=== PATIENT | female | born 1950 | race Caucasian/White ===

== ENCOUNTER 2023-04-14 16:32 | Inpatient (IN) | payer MEDICARE, OTHER, SELFPAY ==
[2023-04-14] VITALS (8 sets, daily range): BP systolic 99–125; BP diastolic 51–84; BMI 52.8; BMI 51.8
[2023-04-14 12:20] LABS: % Basophils 0.4 % (0-2); % Eosinophils 2.5 % (0-6); % Immature Granulocytes 0.4 % (0-0.5); % Lymphocytes 13.7 % (20.5-51.1); % Monocytes 9.6 % (1.7-9.3); % Neutrophils 73.4 % (42.2-75.2); Absolute Eosinophils 0.1 10^3/uL (0-0.7); Absolute Lymphocytes 0.7 10^3/uL (1.2-3.4); Absolute Monocytes 0.5 10^3/uL (0.1-0.6); Absolute Neutrophils 3.8 10^3/uL (1.4-6.5); Hematocrit 34.4 % (37.0-47.0); Hemoglobin 11.5 g/dL (12.0-16.0); Mean Corp Hgb Conc. 33.4 g/dL (33.0-37.0); Mean Corpuscular Hgb 32.1 pg (27.0-31.0); Mean Corpuscular Volume 96.1 fL (81.0-99.0); Mean Platelet Volume 11.5 fL (7.4-10.4); Nucleated Red Blood Cells % 0 %; Platelet Count 116 10^3/uL (130-400); Red Blood Cell Count 3.58 10^6/uL (4.20-5.40); Red Cell Dist. Width 13.5 % (11.5-14.5); White Blood Cell Count 5.1 10^3/uL (4.8-10.8)
[2023-04-14 12:27] LABS: ALT (SGPT) 20 U/L (0-35); AST (SGOT) 27 U/L (14-36); Alkaline Phosphatase 101 U/L (38-126); Blood Urea Nitrogen 45 mg/dl (7-17); Calcium 8.9 mg/dl (8.4-10.2); Carbon Dioxide 36 mmol/L (22-30); Chloride 97 mmol/L (98-107); Glucose 126 mg/dl (70-99); Potassium 4.2 mmol/L (3.5-5.1); Sodium 135 mmol/L (135-145); Total Bilirubin 0.8 mg/dl (0.2-1.3); Total Protein 6.8 g/dl (6.3-8.2); eGFR 37.03
[2023-04-14 12:38] LABS: Troponin I < 0.012 ng/ml
--- NOTE | 2023-04-14 14:49 | ED.GENMED ---
History of Present Illness
General
Chief Complaint: Swelling
Source: patient
Exam Limitations: none
Time Seen by Provider: 04/14/23 14:29
Travel History
Have you had any contact with someone who has COVID-19?: No
Do you have any symptoms of coronavirus? Fever > 100 degrees, chills, cough, shortness of breath, sore throat, loss of taste or smell, muscle aches, or headache?: No
History of Present Illness
History of Present Illness:
72-year-old female with history of CHF on torsemide Eliquis for A-fib presents with increased leg swelling 10 pound weight gain in a week and shortness of breath. Seen by her family doctor yesterday and after discussion between her family doctor
and coal weigher, patient tells me coal weigher office recommended she come here for IV diuresis. She denies chest pain. No fever. She has not missed any doses of her blood thinners. No other complaints at this time
Past History
Past History
ED Past Medical History: Arrthythmia (A fib), COPD, HTN, Hypercholesterolemia, IDDM, Other (LBBB), Other (Hepatitis) and Other (Hep C. Anxiety, Sleep apnea, morbid obesity, liver failure, renal failure, lung cancer, chronic back pain in pain
management)
ED Past Surgical History: Orthopedic (L total knee 04/08/2013. R popliteal artery stent 01/12/14) and Other (resection right lung,)
Social History
Tobacco: Former smoker
Alcohol: Occasional
Drug: None
Personal:
Living: with family
Employment: Not employed
Family History
Family History: Other (Noncontributory)
Phy Exam
Physical Exam
Physical Exam:
General: Well-appearing obese female no acute respiratory distress
HEENT: Normocephalic atraumatic neck is supple
Heart: Regular rate and rhythm no murmurs
Lungs: Clear to auscultation bilaterally no wheezing
Abdomen: Soft nontender nondistended no guarding or rebound normal bowel sounds
Extremities: Pitting edema noted bilateral lower extremities slight into the thigh as well. No cyanosis
Skin is warm with venous stasis changes noted to bilateral lower extremity
Scores
Heart Failure Risk
Heart Failure Risk Score: Not Applicable
Course
Orders/Labs/Results
Orders:
Orders
04/14/23 12:01
CBC/With Diff [Complete Blood Count/With Diff] Urgent
CMP [Comprehensive Metabolic Panel] Urgent
NT-proBNP Urgent
Comment: ADD ON
Troponin I Urgent
04/14/23 13:42
Add On- LAB Urgent
Tests Added?: Pro-BNP
04/14/23 14:43
CR Chest Portable - 1 View Urgent
Comment:
Reason For Exam: sob
Reason Study Needs to be Portable: Unable to Transport
04/14/23 15:05
EKG [Electrocardiogram (*1)] Routine
Reason for Study: Atrial Fibrillation
04/14/23 15:37
Furosemide [Lasix] 40 mg IV NOW STA
Abnormal Lab Results
04/14/23
12:01
RBC 3.58 L 10^6/uL
(4.20-5.40)
Hgb 11.5 L g/dL
(12.0-16.0)
Hct 34.4 L %
(37.0-47.0)
MCH 32.1 H pg
(27.0-31.0)
Plt Count 116 L 10^3/uL
(130-400)
MPV 11.5 H fL
(7.4-10.4)
Absolute Lymphs (auto) 0.7 L 10^3/uL
(1.2-3.4)
Lymphocytes % 13.7 L %
(20.5-51.1)
Monocytes % 9.6 H %
(1.7-9.3)
Chloride 97 L mmol/L
(98-107)
Carbon Dioxide 36 H mmol/L
(22-30)
BUN 45 H mg/dl
(7-17)
Creatinine 1.5 H mg/dL
(0.6-1.0)
Glucose 126 H mg/dl
(70-99)
04/14/23 12:01
04/14/23 12:01
Vital Signs
Initial and Last Documented VS:
Initial Vital Signs
Temp Pulse Resp BP Pulse Ox
98.2 F 66 16 106/84 98
04/14/23 11:42 04/14/23 11:42 04/14/23 11:42 04/14/23 11:42 04/14/23 11:42
Last Documented Vital Signs
Temp Pulse Resp BP Pulse Ox
98.3 F 62 23 112/58 100
04/14/23 14:15 04/14/23 15:30 04/14/23 15:30 04/14/23 15:24 04/14/23 15:30
MDM/Problems Addressed
Differential Diagnosis Includes:
Patient notes increased leg swelling, increased shortness of breath and orthopnea despite recent increase in torsemide. Saw family doctor yesterday. Family doctor recommended she come to the hospital most recent echocardiogram I saw noted an
ejection fraction of 55 to 60% however this was about 2 years ago. Chest x-ray pending BNP pending. For admission for IV diuretics.
*Critical Care Note
Total Time (30-74mins, 75-104mins- exclusive of procedures): Not Applicable
Update Note
Update Note:
Volume overload. Chest x-ray clear not hypoxic while sitting up at rest. Recent increase in torsemide at home on effective. Patient notes 10 pound weight gain in a week. Patient sent in from family doctor's office for IV diuresis. Lasix IV
ordered admitted
ED Attending Note
-
Portions of this chart may have been created with voice recognition software.� Occasional wrong word or��sound alike� substitutions may have occurred due to the inherent limitations of voice recognition software.
Discharge Plan
Departure
Patient Disposition: Admit
Date of Disposition: 04/14/23
Time of Disposition: 15:39
Admit to: Telemetry
Presentation/result/management discussed w/ accepting MD/DO: Hospitalist
Discharge Problem:
CHF (congestive heart failure)
Prescriptions:
No Action
gabapentin 600 mg Tablet
1,200 mg PO BID
torsemide 20 mg Tablet
40 mg PO DAILY
pantoprazole 40 mg Tablet,Delayed Release (Dr/Ec)
40 mg PO DAILY
diltiazem HCl 240 mg Tablet Extended Release 24 Hr
240 mg PO DAILY
rosuvastatin 5 mg Tablet
5 mg PO DAILY
venlafaxine 75 mg capsule,extended release 24hr
75 mg PO DAILY
metoprolol succinate 50 mg tablet extended release 24 hr
50 mg PO BID
cyanocobalamin (vitamin B-12) 1,000 mcg/mL Solution
1,000 mcg IM QMONTH
Rx Instructions:
Next dose- 11/30/2022
sennosides-docusate sodium 8.6-50 mg tablet
2 tab-cap PO HS Qty: 180 0RF
insulin degludec [Tresiba U-100 Insulin] 100 unit/mL Solution
24 unit SC DAILY Qty: 0 0RF
potassium chloride [Klor-Con M20] 20 mEq tablet,ER particles/crystals
20 meq PO DAILY
bisacodyl 5 mg tablet
5 mg PO HS
oxycodone 10 mg tablet
10 mg PO Q6H
oxybutynin chloride 10 mg Tablet Extended Release 24hr
10 mg PO DAILY
spironolactone 25 mg Tablet
12.5 mg PO DAILY
Referrals:
Joanie Jane PA [Family Provider] -
Interventions
Interventions:
*Risk Screen - Suicide Last Done: 04/14/23 14:15
*General Assessment Last Done: 04/14/23 14:15
*Neglect/Abuse Screening Last Done: 04/14/23 14:15
ED- Fall Risk Assessment Last Done: 04/14/23 14:15
*ED COVID-19 Vaccine History Last Done: 04/14/23 14:15
ED- Cardiac Assessment Last Done: 04/14/23 14:15
ED- Pulmonary Assessment Last Done: 04/14/23 14:15
ED-Skin Assessment Last Done: 04/14/23 14:15
--- NOTE | 2023-04-14 15:09 | CON.CAR ---
Addendum entered and electronically signed by Holden Lindo MD 04/14/23 16:21:
I saw and examined the patient.
The WRAPPER HANDS SPRAYER or PA's note was reviewed and I agree with the note.
Comment: General: Well developed, well nourished in NAD.
Neck: Supple, no JVD, HJR, carotids +2 B/L, no bruits bilaterally.
Heart: Non displaced PMI, irregular, no murmurs, No S3, S4, no rubs.
Lungs: Scattered rhonchi
Extremities: Severe lower extremity edema
Neuro: Grossly nonfocal, awake, alert and oriented x3.
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 She has had multiple
admissions in the past for heart failure. She presents for evaluation of worsening shortness of breath and weight gain and elevated proBNP of 3200. She is admitted with acute diastolic CHF. She says she has gained 10 pounds recently.
Treatment IV Lasix and metolazone. She has responded well to metolazone in the past.
Original Note:
Consultation
Consultation Request
Date/Time Consultation Requested: 04/14/2023 at 1500
Date/Time Consultation Performed: 04/14/2023 at 1515
Requesting Provider: Ede Cobb PA-C
Performing Provider: Dr. Lindo
Reason for Consultation: CHF
Medical History
-
History of Present Illness:
HPI: Abbi is a 72-year-old female with past medical history of chronic HFpEF, cirrhosis, persistent atrial fibrillation, CKD, CAD, LBBB, PAD, hypertension, hyperlipidemia, JAYSON, DM 2, and COPD who presents to ER for evaluation of worsening
shortness of breath and weight gain. She reports over the past few weeks she has noticed increased shortness of breath that has been progressively worsening. She has also had over 10 pound weight gain in the last week. She notes her legs have
become more edematous and she feels swelling into her thighs. She was seen by her PCP yesterday who was concerned for acute heart failure exacerbation and sent her for stat labs. Lab work returned concerning for possible heart failure and she was
called this morning and instructed to come to ER for admission. Lab work revealed elevated proBNP at 3200. Chest x-ray is pending in the ER. Plan is for admission for IV diuresis given acute heart failure exacerbation. Cardiology consulted.
Patient reports shortness of breath while at rest in stretcher. Denies any chest pain.
PMH:
Chronic HFpEF
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
Persistent atrial fibrillation
Chronic Eliquis OAC
CKD 3b
H/o encephalopathy 2012
History of carcinoid
Chronic lymphedema
Mild CAD by cath 1999
LBBB
PAD s/p popliteal stent
HTN
HLD
s/p left upper lobectomy for lung cancer
JAYSON
DM2 w/ peripheral neuropathy
COPD
Obesity h/o gastric bypass 2018
Total right knee replacement December 2013 complicated by arterial injury requiring popliteal stent
Laminectomy 2014
Left hydronephrosis, chronic
Past Medical History
Past Medical History: Other (In HPI)
Past Surgical History: Other (Tubal ligation, carpal tunnel release, R TKA, lobectomy, lumbar laminectomy, R popliteal stent, gastric sleeve, left TKA, cataract removal)
Social History
Tobacco: Former Smoker
Alcohol: Occasional
Drug: None
Living: Other (Independent senior care apartment)
Family History
Family History: CAD, Cancer, Diabetes and Hypertension
Allergies / Home Medications
Allergy/AdvReac Type Severity Reaction Status Date / Time
heparin Allergy Rash Verified 04/14/23 11:42
Penicillins Allergy Hives Verified 04/14/23 11:42
(tolerated
cephalosporins
Apr 2016)
pregabalin [From Lyrica] Allergy Hives Verified 04/14/23 11:42
Medication Instructions Recorded Confirmed Type
diltiazem HCl 240 mg 240 mg PO DAILY Blood pressure 02/22/22 01/09/23 History
tablet,extended release 24 hr
gabapentin 600 mg tablet 1,200 mg PO BID Neurological 02/22/22 01/09/23 History
Condition
pantoprazole 40 mg tablet,delayed 40 mg PO DAILY Gastrointestinal 02/22/22 01/09/23 History
release issue
rosuvastatin 5 mg tablet 5 mg PO DAILY High cholesterol 02/22/22 01/09/23 History
torsemide 20 mg tablet 40 mg PO DAILY Fluid 02/22/22 01/09/23 History
retention/Swelling
cyanocobalamin (vitamin B-12) 1,000 mcg IM QMONTH Supplement 03/27/22 01/09/23 History
1,000 mcg/mL injection solution
metoprolol succinate 50 mg 50 mg PO BID Blood pressure 03/27/22 01/09/23 History
tablet,extended release 24 hr
venlafaxine 75 mg capsule,extended 75 mg PO DAILY Depression 03/27/22 01/09/23 History
release 24 hr
sennosides 8.6 mg-docusate sodium 2 tab-cap PO HS #180 tab-caps 04/07/22 01/09/23 Rx
50 mg tablet
insulin degludec 100 unit/mL 24 unit (0.24 mL) SC DAILY 06/23/22 01/09/23 Rx
subcutaneous solution (Tresiba Diabetes #0 mL
U-100 Insulin)
alpha lipoic acid 50 mg tablet 50 mg PO DAILY 11/29/22 01/09/23 History
bisacodyl 5 mg tablet 5 mg PO HS 11/29/22 01/09/23 History
oxybutynin chloride 10 mg 10 mg PO DAILY 11/29/22 01/09/23 History
tablet,extended release 24 hr
oxycodone 10 mg tablet 10 mg PO Q6H Left shoulder pain 11/29/22 01/09/23 History
potassium chloride 20 mEq 20 meq PO DAILY Electrolyte 11/29/22 01/09/23 History
tablet,extended Repletion
release(part/cryst) ([facility] Blood)
spironolactone 25 mg tablet 12.5 mg PO DAILY 01/02/23 01/09/23 History
Keflex 500 mg PO BID 01/09/23 01/09/23 History
Review of Systems
-
History Source: Patient
All other systems: Negative unless noted
Physical Exam
Vital Signs
Temp Pulse Resp BP Pulse Ox
98.3 F 63 18 110/58 96
04/14/23 14:15 04/14/23 14:15 04/14/23 14:15 04/14/23 14:15 04/14/23 14:15
Lab Results
04/14/23 12:01
04/14/23 12:01
Troponin I < 0.012 ng/ml 04/14/23 12:01
Physical Exam
General: Well Developed, Well Nourished and No Apparent Distress
HEENT: Normocephalic, Anicteric and Moist Mucous Membranes
Respiratory: Crackles and Non Labored Respirations
Cardiac: S1/S2 and Irregular Rhythm
Musculoskeletal: No Clubbing, No Cyanosis and Edema
Skin: Warm and Dry
Neuro: AO x 3 and Nonfocal/Grossly Intact
Psych: Calm
Impression / Plan
-
PCP: Joanie Jane PA-C
Maintenance Shop Welder: Dr. Lindo
Impression:
Presented with weight gain, SOB
Acute on chronic HFpEF
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
Persistent atrial fibrillation
Chronic Eliquis OAC
CKD 3b
H/o encephalopathy 2012
History of carcinoid
Chronic lymphedema
Mild CAD by cath 1999
LBBB
PAD s/p popliteal stent
HTN
HLD
s/p left upper lobectomy for lung cancer
JAYSON
DM2 w/ peripheral neuropathy
COPD
Obesity h/o gastric bypass 2018
Total right knee replacement December 2013 complicated by arterial injury requiring popliteal stent
Laminectomy 2014
Left hydronephrosis, chronic
Echo 06/21/21: EF 55 to 60% with paradoxical septal wall motion consistent with known LBBB, stage II diastolic dysfunction, normal right ventricular size and function, mild MR, mild TR, no change compared to previous
Echo 10/23/21: on a technically difficult study demonstrates normal LV size and function.
Plan:
-Presented with evidence of acute heart failure. She has had increased shortness of breath, edema, and weight gain of at least 10lbs.
-In acute heart failure on arrival. ProBNP 3350. CXR with mild CHF. Given a dose of IV lasix 40mg in ER
-Would continue IV lasix 80mg daily and metolazone 2.5mg daily through the weekend. Previously has been on IV bumex during admissions.
-Creat stable, near baseline at 1.5, continue to follow
-Follow daily weights, I&Os. Dry weight is reportedly around 266-271lbs.
-Would repeat echo while admitted. Last echo in 2021 with preserved EF.
-Remains in rate controlled atrial fibrillation on review of EKG.
-Continue diltiazem and toprol for rate control
-Continue Eliquis 5mg BID for anticoagulation.
-BP stable on diltiazem 240mg daily, toprol 50mg BID, and spironolactone 12.5mg daily.
-Continue crestor 5mg daily
HPI: Abbi is a 72-year-old female with past medical history of chronic HFpEF, cirrhosis, persistent atrial fibrillation, CKD, CAD, LBBB, PAD, hypertension, hyperlipidemia, JAYSON, DM 2, and COPD who presents to ER for evaluation of worsening
shortness of breath and weight gain. She reports over the past few weeks she has noticed increased shortness of breath that has been progressively worsening. She has also had over 10 pound weight gain in the last week. She notes her legs have
become more edematous and she feels swelling into her thighs. She was seen by her PCP yesterday who was concerned for acute heart failure exacerbation and sent her for stat labs. Lab work returned concerning for possible heart failure and she was
called this morning and instructed to come to ER for admission. Lab work revealed elevated proBNP at 3200. Chest x-ray is pending in the ER. Plan is for admission for IV diuresis given acute heart failure exacerbation. Cardiology consulted.
Patient reports shortness of breath while at rest in stretcher. Denies any chest pain.
Data Reviewed
-
EKG: Tracing Personally Visualized and interpreted
Radiology: Report Reviewed by me
Labs: Labs Reviewed by me
Old Records: Reviewed
[2023-04-14 15:17] LABS: NT-proBNP 3350 pg/ml
[2023-04-14] MEDS: LASIX 40 MG IV (15:41)
--- NOTE | 2023-04-14 16:11 | HPS.HSE ---
Family Physician
-
Family Physician: SAMMIE Gooden
Chief Complaint
-
Shortness of breath, weight gain, lower extremity edema
History of Present Illness
72-year-old female here with complaints of 10 pound weight gain over the past week, dyspnea on exertion, lower extremity edema.
Referred to the emergency room by her hand lens polisher for initiation of IV diuresis.
Denies any chest pain or pressure.
Medical History
Past Medical History
Past Medical History: Reports Other
Additional Past Medical History:
Chronic heart failure preserved EF
PAD
CKD 3b
HCV, cirrhosis
JAYSON
Essential hypertension
DM2
COPD
Lumbar spinal stenosis
Anxiety/depression
History of carcinoid syndrome
Peripheral neuropathy
Colon polyps
Paroxysmal atrial fibrillation
Chronic lower extremity lymphedema
Past Surgical History: Reports Other
Additional Past Surgical History:
Bilateral tubal ligation
Carpal tunnel x 2
Left upper lobe lobectomy
Lumbar laminectomy
Right total knee replacement
Bariatric sleeve procedure
Left total knee replacement
Cataract surgery
Social History
Tobacco: Former Smoker
Alcohol: Occasional
Drug: None
Personal: Single
Living: Alone
Family History
Family History: Not pertinent
Allergies / Home Medications
Allergies reflects when Allergies were last updated in [facility].
Home Medications with original date entered in [facility]
Allergy/Medication List:
Allergies
Allergy/AdvReac Type Severity Reaction Status Date / Time
heparin Allergy Rash Verified 04/14/23 11:42
Penicillins Allergy Hives Verified 04/14/23 11:42
(tolerated
cephalosporins
Apr 2016)
pregabalin [From Lyrica] Allergy Hives Verified 04/14/23 11:42
Home Medications
diltiazem HCl 240 mg tablet,extended release 24 hr 240 mg PO DAILY Blood pressure 02/22/22
gabapentin 600 mg tablet 1,200 mg PO BID Neurological Condition 02/22/22
pantoprazole 40 mg tablet,delayed release 40 mg PO DAILY Gastrointestinal issue 02/22/22
rosuvastatin 5 mg tablet 5 mg PO DAILY High cholesterol 02/22/22
torsemide 20 mg tablet 40 mg PO DAILY Fluid retention/Swelling 02/22/22
cyanocobalamin (vitamin B-12) 1,000 mcg/mL injection solution 1,000 mcg IM QMONTH Supplement 03/27/22
metoprolol succinate 50 mg tablet,extended release 24 hr 50 mg PO BID Blood pressure 03/27/22
venlafaxine 75 mg capsule,extended release 24 hr 75 mg PO DAILY Depression 03/27/22
sennosides 8.6 mg-docusate sodium 50 mg tablet 2 tab-cap PO HS #180 tab-caps 04/07/22
insulin degludec 100 unit/mL subcutaneous solution (Tresiba U-100 Insulin) 24 unit (0.24 mL) SC DAILY Diabetes #0 mL 06/23/22
bisacodyl 5 mg tablet 5 mg PO HS 11/29/22
oxybutynin chloride 10 mg tablet,extended release 24 hr 10 mg PO DAILY 11/29/22
oxycodone 10 mg tablet 10 mg PO Q6H Left shoulder pain 11/29/22
potassium chloride 20 mEq tablet,extended release(part/cryst) (Klor-Con M) 20 meq PO DAILY Electrolyte Repletion 11/29/22
spironolactone 25 mg tablet 12.5 mg PO DAILY 01/02/23
Eliquis 5 mg twice daily
Review of Systems
-
History Source: Patient
A 12 point ROS was completed and negative except as noted: Yes
Respiratory: Reports Trouble Breathing
Physical Exam
Vital Signs
Vital Signs
Temp Pulse Resp BP Pulse Ox
98.3 F 55 18 112/58 100
04/14/23 14:15 04/14/23 15:45 04/14/23 15:45 04/14/23 15:24 04/14/23 15:45
Physical Exam
General: Well Developed, Well Nourished, No Apparent Distress and Comfortable
HEENT: NormoCephalic, Anicteric and Moist mucous membranes
Respiratory: Clear
Cardiac: S1/S2 and Regular Rhythm
GI: Soft, Non Tender and Non Distended
Genito-urinary: Deferred by me
Musculoskeletal: No Clubbing, No Cyanosis, Edema, Left Lower Extremity, Edema, Right Lower Extremity and Other (Bilateral lower extremity lymphedema)
Skin: Warm and Dry
Neuro: AO x 3
Hematologic/Lymphatic: No Lymphadenopathy
Psych: Calm
Laboratory Results
-
04/14/23 12:01
04/14/23 12:01
Laboratory Results
Total Bilirubin 0.8 mg/dl (0.2-1.3) 04/14/23 12:01
AST 27 U/L (14-36) 04/14/23 12:01
ALT 20 U/L (0-35) 04/14/23 12:01
Alkaline Phosphatase 101 U/L (38-126) 04/14/23 12:01
Troponin I < 0.012 ng/ml 04/14/23 12:01
Impression/Plan
-
Acute on chronic heart failure with preserved EF exacerbation -admit to telemetry. Consult cardiology. IV Lasix. Defer to cardiology dosing of metolazone.
Chest x-ray shows mild cardiomegaly, borderline prominent pulmonary vascularity.
DM2 without hyperglycemia -glucose 126 today. Check hemoglobin A1c. She uses Tresiba 24 units daily at home. Will use Lantus 10 units and low-dose sliding scale insulin.
Essential hypertension - stable.
CKD 3b -creatinine currently at baseline. Monitor on diuresis.
Parox Atrial Fib - continue Eliquis.
HCV/cirrhosis
History of pulmonary carcinoid syndrome
Hyperlipidemia -on Crestor.
PAD - right popliteal artery stent 2013.
JAYSON
Super morbid obesity due to excess calories
full code
[2023-04-14 17:40] LABS: Glucose - Point of Care 124 mg/dl (70-99)
--- NOTE | 2023-04-14 17:59 | PTCARENOTE ---
pt presents from ED via stretcher. pt is AAO*3, Vss, room air. c/o SOB with exertion. c/o chronic shoulder and leg pain. pt is oriented to the room. call jones within the reach;. will continue plan of care.
[2023-04-14] MEDS: ROXICODONE 10 MG PO ×2 (18:03→23:18)
[2023-04-14] MEDS: NOVOLOG FLEXPEN-LOW RESISTANCE SC (18:06)
[2023-04-14] MEDS: DULCOLAX PO (21:11)
[2023-04-14] MEDS: SENOKOT-S PO (21:11)
[2023-04-14] MEDS: ELIQUIS 5 MG PO (21:13)
[2023-04-14] MEDS: DITROPAN 5 MG PO (21:14)
[2023-04-14 21:40] LABS: Glucose - Point of Care 157 mg/dl (70-99)
[2023-04-14] MEDS: NEURONTIN 300 MG PO (22:23)
[2023-04-14] MEDS: LANTUS 0.100000000000000006 UNITS SC (22:23)
[2023-04-14] MEDS: TOPROL XL PO (22:27)
[2023-04-15] VITALS (8 sets, daily range): BP systolic 95–110; BP diastolic 47–68; PULSE 67; O2SAT 97; BMI 50.9
[2023-04-15] MEDS: ROXICODONE 10 MG PO ×4 (05:48→23:26)
[2023-04-15 07:23] LABS: Blood Urea Nitrogen 41 mg/dl (7-17); Calcium 8.3 mg/dl (8.4-10.2); Carbon Dioxide 35 mmol/L (22-30); Chloride 97 mmol/L (98-107); Estimated Creatinine Clearance 50 ml/min; Glucose 99 mg/dl (70-99); Potassium 3.3 mmol/L (3.5-5.1); Sodium 138 mmol/L (135-145); eGFR 43.96
[2023-04-15 07:56] LABS: Glucose - Point of Care 110 mg/dl (70-99)
[2023-04-15] MEDS: NOVOLOG FLEXPEN-LOW RESISTANCE SC ×2 (08:05→17:32)
[2023-04-15] MEDS: CARDIZEM CD 240 MG PO (08:06)
[2023-04-15] MEDS: NEURONTIN 300 MG PO ×3 (08:06→21:29)
[2023-04-15] MEDS: KCL 20 MEQ PO ×3 (08:06→21:30)
[2023-04-15] MEDS: CRESTOR 5 MG PO (08:06)
[2023-04-15] MEDS: DITROPAN 5 MG PO ×2 (08:06→19:42)
[2023-04-15] MEDS: ALDACTONE 12.5 MG PO (08:07)
[2023-04-15] MEDS: PROTONIX 40 MG PO (08:07)
[2023-04-15] MEDS: EFFEXOR XR 75 MG PO (08:07)
[2023-04-15] MEDS: ELIQUIS 5 MG PO ×2 (08:07→19:42)
[2023-04-15] MEDS: LASIX 40 MG IV ×2 (08:07→16:04)
[2023-04-15] MEDS: TOPROL XL 50 MG PO ×2 (08:14→21:30)
[2023-04-15 09:27] LABS: Glycohemoglobin (HgbA1c) 6.6 % (4.0-5.6)
--- NOTE | 2023-04-15 10:37 | W.PN.HOSP.TC ---
Today's Communication/Plan
-
Continue diuresis
Assessment / Plan
Assessment / Plan
Gen-AAOx3, NAD, morbid obesity
HEENT-NC, AT, anicteric, clear oral mm
Neck-supple
CV-reg, no M, +S1/S2
Lungs-clear B/L
Abd-soft, NT, ND
Ext-bilateral lower extremity edema
Musculoskeletal-no cyanosis, clubbing
Skin-warm and dry
Neuro-grossly non-focal
Psych-calm, cooperative, morbid obesity
Acute on chronic heart failure with preserved EF exacerbation -continue IV Lasix. Weight coming down. Symptomatically feeling better. Cardiology following.
DM2 without hyperglycemia -glucose 99 this morning.� Hemoglobin A1c 6.6%..� She uses Tresiba 24 units daily at home.� Will use Lantus 10 units and low-dose sliding scale insulin.
Essential hypertension - stable.
CKD 3b -creatinine currently at baseline.� Monitor on diuresis. Creatinine 1.3 this morning.
Parox Atrial Fib - continue Eliquis.
HCV/cirrhosis
History of pulmonary carcinoid syndrome
Hyperlipidemia -on Crestor.
PAD - right popliteal artery stent 2013.
JAYSON
Super morbid obesity due to excess calories
full code
Anticipated Discharge: 24 - 48 hours
Subjective/Interval History
-
Date of Service: April 15, 2023
Patient seen and examined. Feeling better, less short of breath today. No complaints.
Objective Data
-
Labs:
Laboratory Results
04/15/23
06:36
Sodium 138
Potassium 3.3 L
Chloride 97 L
Carbon Dioxide 35 H
BUN 41 H
Creatinine 1.3 H
Glucose 99
Calcium 8.3 L
Vital Signs:
Vital Signs
Temp Pulse Resp BP Pulse Ox
97.4 F 62 18 109/63 97
04/15/23 10:34 04/15/23 10:34 04/15/23 10:34 04/15/23 10:34 04/15/23 10:34
I&O
04/14/23 04/15/23 04/16/23
06:59 06:59 06:59
Intake Total 240 / 240 480 / 480
Output Total 1100 / 1100 750 / 750
Balance -860 / -860 -270 / -270
Review of Systems
-
History Source: Patient
All other systems: Reviewed and negative
[2023-04-15 12:05] LABS: Glucose - Point of Care 155 mg/dl (70-99)
[2023-04-15] MEDS: NOVOLOG FLEXPEN-LOW RESISTANCE 1 UNITS SC (12:16)
[2023-04-15 12:50] LABS: Magnesium 2.3 mg/dl (1.6-2.3)
--- NOTE | 2023-04-15 14:32 | W.PN.CARDCBS ---
Today's Communication / Plan
-
Continue IV Lasix and metolazone
Weight is currently 278 pounds. dry weight is reportedly around 266-271lbs.
Check echo
Impression / Plan
-
PCP: Joanie Jane PA-C
Charhouse Worker: Dr. Lindo
Impression:
Presented with weight gain, SOB
Acute on chronic HFpEF
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
Persistent atrial fibrillation
Chronic Eliquis OAC
CKD 3b
H/o encephalopathy 2012
History of carcinoid
Chronic lymphedema
Mild CAD by cath 1999
LBBB
PAD s/p popliteal stent
HTN
HLD
s/p left upper lobectomy for lung cancer
JAYSON
DM2 w/ peripheral neuropathy
COPD
Obesity h/o gastric bypass 2018
Total right knee replacement December 2013 complicated by arterial injury requiring popliteal stent
Laminectomy 2014
Left hydronephrosis, chronic
Echo 06/21/21: EF 55 to 60% with paradoxical septal wall motion consistent with known LBBB, stage II diastolic dysfunction, normal right ventricular size and function, mild MR, mild TR, no change compared to previous
Echo 10/23/21: on a technically difficult study demonstrates normal LV size and function.
Plan:
She is difficult examination
Weight on admission in the ER was 288 pounds on 04/14 and is 278 pounds on 04/15. There is likely some error between scales but will continue IV Lasix and Bumex with decreasing weight and stable renal function
Dry weight is reportedly around 266-271lbs.
She is getting potassium repletion as well
Creatinine is 1.3 on 04/15 and was 1.5 on 04/14
Check echocardiogram
Continue diltiazem and toprol for rate control/Continue Eliquis 5mg BID for anticoagulation.
HPI: Abbi is a 72-year-old female with past medical history of chronic HFpEF, cirrhosis, persistent atrial fibrillation, CKD, CAD, LBBB, PAD, hypertension, hyperlipidemia, JAYSON, DM 2, and COPD who presents to ER for evaluation of worsening
shortness of breath and weight gain. She reports over the past few weeks she has noticed increased shortness of breath that has been progressively worsening. She has also had over 10 pound weight gain in the last week. She notes her legs have
become more edematous and she feels swelling into her thighs. She was seen by her PCP yesterday who was concerned for acute heart failure exacerbation and sent her for stat labs. Lab work returned concerning for possible heart failure and she was
called this morning and instructed to come to ER for admission. Lab work revealed elevated proBNP at 3200. Chest x-ray is pending in the ER. Plan is for admission for IV diuresis given acute heart failure exacerbation. Cardiology consulted.
Patient reports shortness of breath while at rest in stretcher. Denies any chest pain.
Progress Note - Charhouse Worker
Subjective
Date of Service: April 15, 2023
No complaints
Objective
Labs:
04/14/23 12:01
04/15/23 06:36
Labs
Hgb 11.5 g/dL (12.0-16.0) L 04/14/23 12:01
Hct 34.4 % (37.0-47.0) L 04/14/23 12:01
Plt Count 116 10^3/uL (130-400) L 04/14/23 12:01
Sodium 138 mmol/L (135-145) 04/15/23 06:36
Potassium 3.3 mmol/L (3.5-5.1) L 04/15/23 06:36
BUN 41 mg/dl (7-17) H 04/15/23 06:36
Creatinine 1.3 mg/dL (0.6-1.0) H 04/15/23 06:36
Glucose 99 mg/dl (70-99) 04/15/23 06:36
Troponins
04/14/23
12:01
Troponin I < 0.012
Vital Signs and I&O:
Vital Signs
Temp Pulse Resp BP Pulse Ox
97.4 F 62 18 109/63 97
04/15/23 10:34 04/15/23 10:34 04/15/23 10:34 04/15/23 10:34 04/15/23 10:34
Vital Signs
Temp Pulse Resp BP Pulse Ox
97.4 F 62 18 109/63 97
04/15/23 10:34 04/15/23 10:34 04/15/23 10:34 04/15/23 10:34 04/15/23 10:34
Intake & Output
04/13/23 04/14/23 04/15/23 04/16/23
06:59 06:59 06:59 06:59
Intake Total 240 / 240 480 / 480
Output Total 1100 / 1100 750 / 750
Balance -860 / -860 -270 / -270
Physical Exam
Physical Exam
General: Well developed, well nourished in NAD.
Neck: Supple, no JVD, HJR, carotids +2 B/L, no bruits bilaterally.
Heart: Non displaced PMI, Irreg, no murmurs, No S3, S4, no rubs.
Lungs: Scattered rhonchi
Extremities: Severe edema bilaterally
Neuro: Grossly nonfocal, awake, alert and oriented x3.
--- NOTE | 2023-04-15 16:25 | CM ---
Cm met with patient in room. Patient confirmed demographics. Patient lives alone in an apartment. Patient has a history of [facility], but is not currently on service. Patient has a SNF stay at [facility]. Patient uses a walker and wheelchair for
ambulation. Patient is active with her PCP. patient uses [facility] for medication services.
Patient is agreeable to home discharge with [facility]. Referral sent to [facility] project controller.
PLAN: home with VN.
[2023-04-15 17:27] LABS: Glucose - Point of Care 138 mg/dl (70-99)
[2023-04-15] MEDS: DULCOLAX PO (19:36)
[2023-04-15] MEDS: SENOKOT-S PO (19:42)
[2023-04-15 21:23] LABS: Glucose - Point of Care 156 mg/dl (70-99)
[2023-04-15 21:23] LABS: Glucose - Point of Care 259 mg/dl (70-99)
[2023-04-15 21:26] LABS: Glucose - Point of Care 163 mg/dl (70-99)
[2023-04-15] MEDS: LANTUS 0.100000000000000006 UNITS SC (21:34)
[2023-04-16 03:50] VITALS: BP 106/63
[2023-04-16 05:10] VITALS: BMI 50.4
[2023-04-16] MEDS: ROXICODONE 10 MG PO ×4 (05:40→23:59)
--- NOTE | 2023-04-16 07:22 | PTCARENOTE ---
Pt with bloody nose- small amount of blood- stopped with pressure of tissue. Pt stating ' i have been getting bloody noses because it is so dry'. No further bleeding.
[2023-04-16 07:30] VITALS: BP 122/55
[2023-04-16 07:33] LABS: Blood Urea Nitrogen 37 mg/dl (7-17); Calcium 8.5 mg/dl (8.4-10.2); Carbon Dioxide 38 mmol/L (22-30); Chloride 97 mmol/L (98-107); Estimated Creatinine Clearance 47 ml/min; Glucose 126 mg/dl (70-99); Potassium 3.8 mmol/L (3.5-5.1); Sodium 138 mmol/L (135-145); eGFR 40.22
[2023-04-16 08:04] LABS: Glucose - Point of Care 126 mg/dl (70-99)
[2023-04-16] MEDS: NOVOLOG FLEXPEN-LOW RESISTANCE SC ×2 (09:01→18:17)
[2023-04-16] MEDS: CRESTOR 5 MG PO (09:02)
[2023-04-16] MEDS: KCL 20 MEQ PO ×3 (09:02→22:12)
[2023-04-16] MEDS: PROTONIX 40 MG PO (09:02)
[2023-04-16] MEDS: CARDIZEM CD 240 MG PO (09:02)
[2023-04-16] MEDS: NEURONTIN 300 MG PO ×3 (09:02→22:12)
[2023-04-16] MEDS: DITROPAN 5 MG PO ×2 (09:03→20:10)
[2023-04-16] MEDS: TOPROL XL 50 MG PO ×2 (09:03→20:10)
[2023-04-16] MEDS: LASIX 40 MG IV ×2 (09:03→17:02)
[2023-04-16] MEDS: ALDACTONE 12.5 MG PO (09:03)
[2023-04-16] MEDS: EFFEXOR XR 75 MG PO (09:03)
[2023-04-16] MEDS: ELIQUIS 5 MG PO ×2 (09:03→20:10)
--- NOTE | 2023-04-16 10:01 | W.PN.HOSP.TC ---
Today's Communication/Plan
-
Continue diuresis
Echocardiogram Monday
Assessment / Plan
Assessment / Plan
Gen-AAOx3, NAD, morbid obesity
HEENT-NC, AT, anicteric, clear oral mm
Neck-supple
CV-reg, no M, +S1/S2
Lungs-clear B/L
Abd-soft, NT, ND
Ext-bilateral lower extremity edema
Musculoskeletal-no cyanosis, clubbing
Skin-warm and dry
Neuro-grossly non-focal
Psych-calm, cooperative, morbid obesity
Acute on chronic heart failure with preserved EF exacerbation -continue IV Lasix. Weight coming down, 6 kg so for. Symptomatically feeling better. Cardiology following. Check echocardiogram tomorrow morning. I spoke with cardiology, okay to
hold off on metolazone for now.
DM2 without hyperglycemia -glucose 99 this morning.� Hemoglobin A1c 6.6%..� She uses Tresiba 24 units daily at home.� Will use Lantus 10 units and low-dose sliding scale insulin.
Essential hypertension - stable.
CKD 3b -creatinine currently at baseline.� Monitor on diuresis. Creatinine stable so far.
Parox Atrial Fib - continue Eliquis.
HCV/cirrhosis
History of pulmonary carcinoid syndrome
Hyperlipidemia -on Crestor.
PAD - right popliteal artery stent 2013.
JAYSON
Super morbid obesity due to excess calories
full code
Anticipated Discharge: > 48 hours
Subjective/Interval History
-
Date of Service: April 16, 2023
Patient seen and examined. Shortness of breath is improving. No complaints.
Objective Data
-
Labs:
Laboratory Results
04/16/23
06:45
Sodium 138
Potassium 3.8
Chloride 97 L
Carbon Dioxide 38 H
BUN 37 H
Creatinine 1.4 H
Glucose 126 H
Calcium 8.5
Vital Signs:
Vital Signs
Temp Pulse Resp BP Pulse Ox
97.8 F 66 18 122/55 94
04/16/23 07:30 04/16/23 09:02 04/16/23 07:30 04/16/23 09:02 04/16/23 07:30
I&O
04/15/23 04/16/23 04/17/23
06:59 06:59 06:59
Intake Total 240 / 240 720 / 720
Output Total 1100 / 1100 3475 / 3475
Balance -860 / -860 -2755 / -2755
Review of Systems
-
History Source: Patient
All other systems: Reviewed and negative
[2023-04-16 11:38] VITALS: BP 117/69
[2023-04-16 12:14] LABS: Glucose - Point of Care 157 mg/dl (70-99)
[2023-04-16] MEDS: NOVOLOG FLEXPEN-LOW RESISTANCE 1 UNITS SC (12:51)
--- NOTE | 2023-04-16 15:33 | W.PN.CARDCBS ---
Today's Communication / Plan
-
Continue IV Lasix
Impression / Plan
-
PCP: Joanie Jane PA-C
Vehicle And Equipment Cleaner: Dr. Lindo
Impression:
Presented with weight gain, SOB
Acute on chronic HFpEF
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
Persistent atrial fibrillation
Chronic Eliquis OAC
CKD 3b
H/o encephalopathy 2012
History of carcinoid
Chronic lymphedema
Mild CAD by cath 1999
LBBB
PAD s/p popliteal stent
HTN
HLD
s/p left upper lobectomy for lung cancer
JAYSON
DM2 w/ peripheral neuropathy
COPD
Obesity h/o gastric bypass 2018
Total right knee replacement December 2013 complicated by arterial injury requiring popliteal stent
Laminectomy 2014
Left hydronephrosis, chronic
Echo 06/21/21: EF 55 to 60% with paradoxical septal wall motion consistent with known LBBB, stage II diastolic dysfunction, normal right ventricular size and function, mild MR, mild TR, no change compared to previous
Echo 10/23/21: on a technically difficult study demonstrates normal LV size and function.
Plan:
She is difficult examination
Weight on admission in the ER was 288 pounds on 04/14, 278 pounds on 04/15, 275 pounds on 04/16. Dry weight is reportedly around 266-271lbs.
Continue IV lasix
She is getting potassium repletion as well
Creatinine is 1.4 on 04/16, 1.3 on 04/15, 1.5 on 04/14,
Check echocardiogram
Continue diltiazem and toprol for rate control/Continue Eliquis 5mg BID for anticoagulation.
Discussed with primary service
HPI: Abbi is a 72-year-old female with past medical history of chronic HFpEF, cirrhosis, persistent atrial fibrillation, CKD, CAD, LBBB, PAD, hypertension, hyperlipidemia, JAYSON, DM 2, and COPD who presents to ER for evaluation of worsening
shortness of breath and weight gain. She reports over the past few weeks she has noticed increased shortness of breath that has been progressively worsening. She has also had over 10 pound weight gain in the last week. She notes her legs have
become more edematous and she feels swelling into her thighs. She was seen by her PCP yesterday who was concerned for acute heart failure exacerbation and sent her for stat labs. Lab work returned concerning for possible heart failure and she was
called this morning and instructed to come to ER for admission. Lab work revealed elevated proBNP at 3200. Chest x-ray is pending in the ER. Plan is for admission for IV diuresis given acute heart failure exacerbation. Cardiology consulted.
Patient reports shortness of breath while at rest in stretcher. Denies any chest pain.
Progress Note - Vehicle And Equipment Cleaner
Subjective
Date of Service: April 16, 2023
No complaint
Objective
Labs:
04/14/23 12:01
04/16/23 06:45
Labs
Hgb 11.5 g/dL (12.0-16.0) L 04/14/23 12:01
Hct 34.4 % (37.0-47.0) L 04/14/23 12:01
Plt Count 116 10^3/uL (130-400) L 04/14/23 12:01
Sodium 138 mmol/L (135-145) 04/16/23 06:45
Potassium 3.8 mmol/L (3.5-5.1) 04/16/23 06:45
BUN 37 mg/dl (7-17) H 04/16/23 06:45
Creatinine 1.4 mg/dL (0.6-1.0) H 04/16/23 06:45
Glucose 126 mg/dl (70-99) H 04/16/23 06:45
Troponins
04/14/23
12:01
Troponin I < 0.012
Vital Signs and I&O:
Vital Signs
Temp Pulse Resp BP Pulse Ox
97.5 F 71 16 117/69 98
04/16/23 11:38 04/16/23 11:38 04/16/23 11:38 04/16/23 11:38 04/16/23 11:38
Vital Signs
Temp Pulse Resp BP Pulse Ox
97.5 F 71 16 117/69 98
04/16/23 11:38 04/16/23 11:38 04/16/23 11:38 04/16/23 11:38 04/16/23 11:38
Intake & Output
04/14/23 04/15/23 04/16/23 04/17/23
06:59 06:59 06:59 06:59
Intake Total 240 / 240 720 / 720
Output Total 1100 / 1100 3475 / 3475
Balance -860 / -860 -2755 / -2755
Physical Exam
Physical Exam
General: Well developed, well nourished in NAD.
Neck: Supple, no JVD, HJR, carotids +2 B/L, no bruits bilaterally.
Heart: Non displaced PMI, irregular, no murmurs, No S3, S4, no rubs.
Lungs: Scattered rhonchi
Extremities: No clubbing, cyanosis or edema bilaterally.
Neuro: Grossly nonfocal, awake, alert and oriented x3.
[2023-04-16 15:44] VITALS: BP 106/53
[2023-04-16 18:18] LABS: Glucose - Point of Care 146 mg/dl (70-99)
[2023-04-16 19:00] VITALS: BP 123/68
[2023-04-16] MEDS: SENOKOT-S PO (20:12)
[2023-04-16] MEDS: DULCOLAX PO (20:12)
[2023-04-16 21:44] LABS: Glucose - Point of Care 137 mg/dl (70-99)
[2023-04-16] MEDS: LANTUS 0.100000000000000006 UNITS SC (22:12)
[2023-04-16 23:40] VITALS: BP 115/65
[2023-04-17] VITALS (7 sets, daily range): BP systolic 96–143; BP diastolic 63–84; PULSE 83; O2SAT 96; BMI 49.8
[2023-04-17] MEDS: ROXICODONE 10 MG PO ×3 (05:53→17:11)
[2023-04-17 06:41] LABS: Blood Urea Nitrogen 44 mg/dl (7-17); Carbon Dioxide 35 mmol/L (22-30); Chloride 93 mmol/L (98-107); Estimated Creatinine Clearance 46 ml/min; Glucose 150 mg/dl (70-99); Potassium 3.6 mmol/L (3.5-5.1); Sodium 137 mmol/L (135-145); eGFR 40.22
[2023-04-17 07:13] LABS: Glucose - Point of Care 140 mg/dl (70-99)
[2023-04-17] MEDS: NOVOLOG FLEXPEN-LOW RESISTANCE SC ×3 (07:21→17:01)
[2023-04-17] MEDS: ALDACTONE 12.5 MG PO (08:04)
[2023-04-17] MEDS: CARDIZEM CD 240 MG PO (08:05)
[2023-04-17] MEDS: PROTONIX 40 MG PO (08:05)
[2023-04-17] MEDS: NEURONTIN 300 MG PO ×3 (08:05→21:21)
[2023-04-17] MEDS: ELIQUIS 5 MG PO ×2 (08:06→21:22)
[2023-04-17] MEDS: CRESTOR 5 MG PO (08:06)
[2023-04-17] MEDS: TOPROL XL PO (08:11)
[2023-04-17] MEDS: KCL 20 MEQ PO ×4 (08:11→21:21)
[2023-04-17] MEDS: EFFEXOR XR 75 MG PO (08:11)
[2023-04-17] MEDS: DITROPAN 5 MG PO ×2 (08:12→20:04)
[2023-04-17] MEDS: LASIX 40 MG IV ×2 (08:12→16:03)
--- NOTE | 2023-04-17 10:07 | W.PN.CARDCBS ---
Addendum entered and electronically signed by Holden Lindo MD 04/17/23 13:10:
I saw and examined the patient.
The INSULATION MACHINE OPERATOR or PA's note was reviewed and I agree with the note.
Comment: General: Well developed, well nourished in NAD.
Neck: Supple, no JVD, HJR, carotids +2 B/L, no bruits bilaterally.
Heart: Non displaced PMI, RRR, no murmurs, No S3, S4, no rubs.
Lungs: scattered rhonchi
Extremities: Moderate edema bilaterally
Neuro: Grossly nonfocal, awake, alert and oriented x3.
Weight is 272 pounds and dry weight felt to be 266 to 271 pounds. Will continue IV Lasix as long as renal function remained stable. Of note she was on metolazone as well at home but is diuresing without metolazone at present. Consider changing to
oral diuretics in next 24 to 48 hours. Check echocardiogram. Replete potassium
Original Note:
Today's Communication / Plan
-
Continue IV lasix
Echo report pending
Replete K
Impression / Plan
-
PCP: Joanie Jane PA-C
Floorworker Distributor: Dr. Lindo
Impression:
Presented with weight gain, SOB
Acute on chronic HFpEF
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
Persistent atrial fibrillation
Chronic Eliquis OAC
CKD 3b
H/o encephalopathy 2012
History of carcinoid
Chronic lymphedema
Mild CAD by cath 1999
LBBB
PAD s/p popliteal stent
HTN
HLD
s/p left upper lobectomy for lung cancer
JAYSON
DM2 w/ peripheral neuropathy
COPD
Obesity h/o gastric bypass 2018
Total right knee replacement December 2013 complicated by arterial injury requiring popliteal stent
Laminectomy 2014
Left hydronephrosis, chronic
Echo 06/21/21: EF 55 to 60% with paradoxical septal wall motion consistent with known LBBB, stage II diastolic dysfunction, normal right ventricular size and function, mild MR, mild TR, no change compared to previous
Echo 10/23/21: on a technically difficult study demonstrates normal LV size and function.
Echo 04/17/2023: Study completed, report pending
Plan:
-Presented with evidence of acute heart failure with weight gain, SOB, and edema.
-Diuresing with IV lasix 40mg BID. Weight down at least 10lbs this admission, down to 272lbs. Creat 1.4.
-May be close to transitioning to PO lasix in the next 24-48 hours.
-Follow daily weights, I&Os. Dry weight is reportedly around 266-271lbs.
-Remains in rate controlled atrial fibrillation. HR stable on toprol and diltiazem.
-Continue Eliquis 5mg BID for anticoagulation.
-Echo completed 04/17. Report pending
-K 3.6, continue repletion with ongoing diuresis. Will give an additional 20meq.
-Continue Crestor 5mg daily
HPI: Abbi is a 72-year-old female with past medical history of chronic HFpEF, cirrhosis, persistent atrial fibrillation, CKD, CAD, LBBB, PAD, hypertension, hyperlipidemia, JAYSON, DM 2, and COPD who presents to ER for evaluation of worsening
shortness of breath and weight gain. She reports over the past few weeks she has noticed increased shortness of breath that has been progressively worsening. She has also had over 10 pound weight gain in the last week. She notes her legs have
become more edematous and she feels swelling into her thighs. She was seen by her PCP yesterday who was concerned for acute heart failure exacerbation and sent her for stat labs. Lab work returned concerning for possible heart failure and she was
called this morning and instructed to come to ER for admission. Lab work revealed elevated proBNP at 3200. Chest x-ray is pending in the ER. Plan is for admission for IV diuresis given acute heart failure exacerbation. Cardiology consulted.
Patient reports shortness of breath while at rest in stretcher. Denies any chest pain.
Progress Note - Floorworker Distributor
Subjective
Date of Service: April 17, 2023
Breathing and edema improving. Dry mouth noted.
Objective
Labs:
04/14/23 12:01
04/17/23 05:29
Labs
Hgb 11.5 g/dL (12.0-16.0) L 04/14/23 12:01
Hct 34.4 % (37.0-47.0) L 04/14/23 12:01
Plt Count 116 10^3/uL (130-400) L 04/14/23 12:01
Sodium 137 mmol/L (135-145) 04/17/23 05:29
Potassium 3.6 mmol/L (3.5-5.1) 04/17/23 05:29
BUN 44 mg/dl (7-17) H 04/17/23 05:29
Creatinine 1.4 mg/dL (0.6-1.0) H 04/17/23 05:29
Glucose 150 mg/dl (70-99) H 04/17/23 05:29
Troponins
04/14/23
12:01
Troponin I < 0.012
Vital Signs and I&O:
Vital Signs
Temp Pulse Resp BP Pulse Ox
97.9 F 75 18 99/64 97
04/17/23 06:48 04/17/23 08:11 04/17/23 06:48 04/17/23 08:11 04/17/23 08:00
Vital Signs
Temp Pulse Resp BP Pulse Ox
97.9 F 75 18 99/64 97
04/17/23 06:48 04/17/23 08:11 04/17/23 06:48 04/17/23 08:11 04/17/23 08:00
Intake & Output
04/15/23 04/16/23 04/17/23 04/18/23
06:59 06:59 06:59 06:59
Intake Total 240 / 240 720 / 720 540 / 540
Output Total 1100 / 1100 3475 / 3475
Balance -860 / -860 -2755 / -2755 540 / 540
Physical Exam
Physical Exam
GEN: No distress, awake, alert, oriented x3
HEENT: supple, anicteric, mmm
LUNGS: Few rales at b/l bases
CV: Irregularly irregular, S1/S2, no murmur
ABD: soft, BS+, NT/ND
EXT: No clubbing, cyanosis, or edema
NEURO: Gross non-focal
SKIN: Venous stasis changes, Warm, dry,
[2023-04-17 11:18] LABS: Glucose - Point of Care 112 mg/dl (70-99)
[2023-04-17] MEDS: OCEAN, SALINE MIST 1 SPRAYS NASAL (11:56)
--- NOTE | 2023-04-17 12:52 | VNURNOTE ---
Home Health Liaison met with patient at 1220 to discuss [facility] nurse/therapy, visits, schedule and homebound status. Patient is agreeable only to SN and understands that visits at home will be 2-3 x per week to assess and teach medical management.
Patient has a scale and is able to log a daily weight. Patient is declining PT/OT evals at home.
[facility] brochure provided with contact information. Patient is aware that [facility] will contact her for start of care in 1-2 days after discharge from .
[facility] referral completed in [facility].
[2023-04-17 16:39] LABS: Glucose - Point of Care 142 mg/dl (70-99)
--- NOTE | 2023-04-17 16:42 | W.PN.HOSP.TC ---
Today's Communication/Plan
-
continue IV Lasix
Assessment / Plan
Assessment / Plan
Assessment:
Acute on chronic heart failure with preserved EF exacerbation
- continue IV Lasix - requires intensive monitoring
- Cardiology following
- Echo: Normal left ventricular size and systolic function.� Mild concentric left ventricular hypertrophy.� No regional wall motion abnormalities are seen. Abnormal (paradoxical) septal motion consistent with left bundle branch block. LV ejection
fraction is 50-55%. Mild tricuspid regurgitation. Compared to the previous limited echo Oct 2021 for EF, EF was 55-60% at that time.
DM2 without hyperglycemia
- A1c 6.6%
- continue current insulin doses
Essential hypertension - stable.
CKD 3b - creatinine currently at baseline.� Monitor on diuresis. Creatinine stable so far.
Parox Atrial Fib - continue Eliquis.
HCV/cirrhosis
History of pulmonary carcinoid syndrome
Hyperlipidemia -on Crestor.
PAD - right popliteal artery stent 2013.
JAYSON
Super morbid obesity due to excess calories
DVT ppx: Eliquis
Code: Full
Anticipated Discharge: 24 - 48 hours
Subjective/Interval History
-
Date of Service: April 17, 2023
reports breathing improving
denies any cp
Objective Data
-
Labs:
Laboratory Results
04/17/23
05:29
Sodium 137
Potassium 3.6
Chloride 93 L
Carbon Dioxide 35 H
BUN 44 H
Creatinine 1.4 H
Glucose 150 H
Calcium 9.0
Vital Signs:
Vital Signs
Temp Pulse Resp BP Pulse Ox
98 F 67 14 121/76 98
04/17/23 11:04 04/17/23 16:03 04/17/23 11:04 04/17/23 16:03 04/17/23 11:04
I&O
04/16/23 04/17/23 04/18/23
06:59 06:59 06:59
Intake Total 720 / 720 540 / 540
Output Total 3475 / 3475
Balance -2755 / -2755 540 / 540
Physical Exam
-
General: No Apparent Distress
HEENT: Normocephalic and Atraumatic
Respiratory: Negative Wheezes or Rales
Cardiac: Regular Rhythm and S1/S2
GI: Soft
Genito-urinary: No Costovertebral Tender
Neuro: AO x 3
Hematologic / Lymphatic: No Lymphadenopathy
Psych: Calm
Data Reviewed
-
Total Time Spent with Patient (in minutes): 51
Labs: Labs Reviewed by me
[2023-04-17] MEDS: TOPROL XL 50 MG PO (20:07)
[2023-04-17 21:21] LABS: Glucose - Point of Care 181 mg/dl (70-99)
[2023-04-17] MEDS: SENOKOT-S 1 TABLET PO (21:21)
[2023-04-17] MEDS: DULCOLAX 5 MG PO (21:21)
[2023-04-17] MEDS: LANTUS 0.100000000000000006 UNITS SC (21:22)
[2023-04-17] MEDS: TUMS 2 TABLET PO (21:22)
[2023-04-18] MEDS: ROXICODONE 10 MG PO ×4 (00:02→17:31)
[2023-04-18 03:31] VITALS: BP 150/73
[2023-04-18 07:30] VITALS: BP 137/74
[2023-04-18 07:51] VITALS: BMI 49.8
[2023-04-18 07:56] LABS: Glucose - Point of Care 127 mg/dl (70-99)
[2023-04-18] MEDS: NOVOLOG FLEXPEN-LOW RESISTANCE SC (08:07)
--- NOTE | 2023-04-18 08:38 | PN.CDI ---
CDI
- -
CDI:
Physician Documentation Request
Admit Date: 04/14/23 16:32
Dear Doctor Marian,
Please review the following and provide your response in the progress notes.
Clinical Indicators:
- 04/17 PN indicates paroxysmal atrial fibrillation
- 04/17 Cardiology indicates persistent atrial fibrillation
If possible, please provide further specificity regarding atrial fibrillation, such as:
Paroxysmal atrial fibrillation - terminates spontaneously or with intervention within 7 days of onset
Persistent atrial fibrillation - episodes of continuous AF that last more than 7 days and do not self-terminate
Other - please specify
Use of terms such as suspected, likely, concern for, or probable (associated with a specific diagnosis that is being evaluated, monitored, or treated as if it exists) are acceptable and can be coded in the inpatient setting, when documented at the
time of discharge.
Thank you,
Lusi Zimmer RN
CDI Specialist
Please use your independent medical judgment in providing your response.
--- NOTE | 2023-04-18 08:42 | PN.CDI ---
CDI
- -
CDI:
Physician Documentation Request
Admit Date: 04/14/23 16:32
Dear Doctor Marian,
Please review the following and provide your response in the progress notes.
Clinical Indicators:
- 04/15 Potassium level 3.3
- 04/15 20 meq Potassium chloride given x 3
- 04/16 Potasssium level 3.8
Please provide a diagnosis for the above lab values that were monitored and treatment rendered:
Hypokalemia
Clinically insignificant abnormal lab value
Other
Use of terms such as suspected, likely, concern for, or probable (associated with a specific diagnosis that is being evaluated, monitored, or treated as if it exists) are acceptable and can be coded in the inpatient setting, when documented at the
time of discharge.
Thank you,
Luis Zimmer RN
CDI Specialist
Please use your independent medical judgment in providing your response.
[2023-04-18 09:02] LABS: Blood Urea Nitrogen 49 mg/dl (7-17); Carbon Dioxide 37 mmol/L (22-30); Chloride 93 mmol/L (98-107); Estimated Creatinine Clearance 43 ml/min; Glucose 124 mg/dl (70-99); Potassium 3.7 mmol/L (3.5-5.1); Sodium 137 mmol/L (135-145); eGFR 37.03
[2023-04-18] MEDS: EFFEXOR XR 75 MG PO (09:21)
[2023-04-18] MEDS: LASIX 40 MG IV ×2 (09:21→17:30)
[2023-04-18] MEDS: DITROPAN 5 MG PO ×2 (09:22→20:07)
[2023-04-18] MEDS: TOPROL XL 50 MG PO ×2 (09:22→20:07)
[2023-04-18] MEDS: PROTONIX 40 MG PO (09:22)
[2023-04-18] MEDS: CRESTOR 5 MG PO (09:22)
[2023-04-18] MEDS: ELIQUIS 5 MG PO ×2 (09:22→20:07)
[2023-04-18] MEDS: CARDIZEM CD 240 MG PO (09:22)
[2023-04-18] MEDS: ALDACTONE 12.5 MG PO (09:22)
[2023-04-18] MEDS: KCL 20 MEQ PO ×3 (09:22→22:01)
[2023-04-18] MEDS: NEURONTIN 300 MG PO ×3 (09:22→22:01)
--- NOTE | 2023-04-18 10:01 | W.PN.CARDCBS ---
Today's Communication / Plan
-
Will continue IV Lasix for another 24 hours. Extra metolazone today.
Will switch to p.o. diuretics in a.m. and plan for discharge.
Creatinine stable at 1.5
Continue rate control strategy for A-fib with metoprolol, diltiazem, and Eliquis.
Impression / Plan
-
PCP: Joanie Jane PA-C
Chancellor: Dr. Lindo
Impression:
Presented with weight gain, SOB
Acute on chronic HFpEF
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
Persistent atrial fibrillation
Chronic Eliquis OAC
CKD 3b
H/o encephalopathy 2012
History of carcinoid
Chronic lymphedema
Mild CAD by cath 1999
LBBB
PAD s/p popliteal stent
HTN
HLD
s/p left upper lobectomy for lung cancer
JAYSON
DM2 w/ peripheral neuropathy
COPD
Obesity h/o gastric bypass 2018
Total right knee replacement December 2013 complicated by arterial injury requiring popliteal stent
Laminectomy 2014
Left hydronephrosis, chronic
Echo 06/21/21: EF 55 to 60% with paradoxical septal wall motion consistent with known LBBB, stage II diastolic dysfunction, normal right ventricular size and function, mild MR, mild TR, no change compared to previous
Echo 10/23/21: on a technically difficult study demonstrates normal LV size and function.
Echo 04/17/2023: EF 55 to 60%, mild TR
Plan:
-Will give IV Lasix for 1 more day. Will add 2.5 and Zaroxolyn to IV Lasix and switch to p.o. in the a.m. Creatinine is at 1.5 and relatively stable.
-Follow daily weights, I&Os. Dry weight is reportedly around 266-271lbs.
-Remains in rate controlled atrial fibrillation. HR stable on toprol and diltiazem.
-Continue Eliquis 5mg BID for anticoagulation.
-Echo with EF 55%, mild TR
-K 3.7, continue repletion with ongoing diuresis.
-Continue Crestor 5mg daily
HPI: Abbi is a 72-year-old female with past medical history of chronic HFpEF, cirrhosis, persistent atrial fibrillation, CKD, CAD, LBBB, PAD, hypertension, hyperlipidemia, JAYSON, DM 2, and COPD who presents to ER for evaluation of worsening
shortness of breath and weight gain. She reports over the past few weeks she has noticed increased shortness of breath that has been progressively worsening. She has also had over 10 pound weight gain in the last week. She notes her legs have
become more edematous and she feels swelling into her thighs. She was seen by her PCP yesterday who was concerned for acute heart failure exacerbation and sent her for stat labs. Lab work returned concerning for possible heart failure and she was
called this morning and instructed to come to ER for admission. Lab work revealed elevated proBNP at 3200. Chest x-ray is pending in the ER. Plan is for admission for IV diuresis given acute heart failure exacerbation. Cardiology consulted.
Patient reports shortness of breath while at rest in stretcher. Denies any chest pain.
Progress Note - Chancellor
Subjective
Date of Service: April 18, 2023
About the same. Still with some shortness of breath.
Objective
Labs:
04/14/23 12:01
04/18/23 07:00
Labs
Hgb 11.5 g/dL (12.0-16.0) L 04/14/23 12:01
Hct 34.4 % (37.0-47.0) L 04/14/23 12:01
Plt Count 116 10^3/uL (130-400) L 04/14/23 12:01
Sodium 137 mmol/L (135-145) 04/18/23 07:00
Potassium 3.7 mmol/L (3.5-5.1) 04/18/23 07:00
BUN 49 mg/dl (7-17) H 04/18/23 07:00
Creatinine 1.5 mg/dL (0.6-1.0) H 04/18/23 07:00
Glucose 124 mg/dl (70-99) H 04/18/23 07:00
Vital Signs and I&O:
Vital Signs
Temp Pulse Resp BP Pulse Ox
97.6 F 84 18 137/74 94
04/18/23 07:30 04/18/23 07:30 04/18/23 07:30 04/18/23 07:30 04/18/23 07:30
Vital Signs
Temp Pulse Resp BP Pulse Ox
97.6 F 84 18 137/74 94
04/18/23 07:30 04/18/23 07:30 04/18/23 07:30 04/18/23 07:30 04/18/23 07:30
Intake & Output
04/16/23 04/17/23 04/18/23 04/19/23
06:59 06:59 06:59 06:59
Intake Total 720 / 720 540 / 540 1400 / 1400
Output Total 3475 / 3475
Balance -2755 / -2755 540 / 540 1400 / 1400
Physical Exam
Physical Exam
GEN: No distress, awake, Ox3
HEENT: supple, anicteric, mmm
LUNGS: CTA, no wheezes/rales
CV: Irreg, S1/S2, 1/6 syst LSB, S3+
ABD: soft, BS+, NT/ND
EXT: +1 edema
NEURO: Gross non-focal
SKIN: No rash
--- NOTE | 2023-04-18 11:12 | W.PN.HOSP.TC ---
Today's Communication/Plan
-
continue IV Lasix + Metolazone
Assessment / Plan
Assessment / Plan
Assessment:
Acute on chronic heart failure with preserved EF exacerbation
- continue IV Lasix - requires intensive monitoring
- Metolazone today
- Cardiology following
- Echo: Normal left ventricular size and systolic function.� Mild concentric left ventricular hypertrophy.� No regional wall motion abnormalities are seen. Abnormal (paradoxical) septal motion consistent with left bundle branch block. LV ejection
fraction is 50-55%. Mild tricuspid regurgitation. Compared to the previous limited echo Oct 2021 for EF, EF was 55-60% at that time.
DM2 without hyperglycemia
- A1c 6.6%
- continue current insulin doses
Essential hypertension - stable.
CKD 3b - creatinine currently at baseline.� Monitor on diuresis. Creatinine stable so far.
Persistent Atrial Fib - continue Eliquis.
HCV/cirrhosis
History of pulmonary carcinoid syndrome
Hyperlipidemia -on Crestor.
PAD - right popliteal artery stent 2013.
JAYSON
Super morbid obesity due to excess calories
Hypokalemia - replete prn
DVT ppx: Eliquis
Code: Full
Anticipated Discharge: Within 24 hours
Subjective/Interval History
-
Date of Service: April 18, 2023
improving, some mild SOB
weight stable 123kg
Objective Data
-
Labs:
Laboratory Results
04/18/23
07:00
Sodium 137
Potassium 3.7
Chloride 93 L
Carbon Dioxide 37 H
BUN 49 H
Creatinine 1.5 H
Glucose 124 H
Calcium 9.0
Vital Signs:
Vital Signs
Temp Pulse Resp BP Pulse Ox
97.6 F 84 18 137/74 94
04/18/23 07:30 04/18/23 07:30 04/18/23 07:30 04/18/23 07:30 04/18/23 10:31
I&O
04/17/23 04/18/23 04/19/23
06:59 06:59 06:59
Intake Total 540 / 540 1400 / 1400
Balance 540 / 540 1400 / 1400
Physical Exam
-
General: No Apparent Distress
HEENT: Normocephalic and Atraumatic
Respiratory: Clear to Auscultation; Negative Wheezes or Rales
Cardiac: Regular Rhythm
GI: Soft
Genito-urinary: No Costovertebral Tender
Musculoskeletal: No Edema
Neuro: AO x 3
Psych: Calm
Data Reviewed
-
Total Time Spent with Patient (in minutes): 51
Labs: Labs Reviewed by me
[2023-04-18 11:47] LABS: Glucose - Point of Care 184 mg/dl (70-99)
[2023-04-18] MEDS: ZAROXOLYN 2.5 MG PO (12:18)
[2023-04-18] MEDS: NOVOLOG FLEXPEN-LOW RESISTANCE 1 UNITS SC ×2 (12:19→17:32)
[2023-04-18 15:35] VITALS: BP 108/64
[2023-04-18 16:45] LABS: Glucose - Point of Care 167 mg/dl (70-99)
[2023-04-18 19:46] VITALS: BP 117/70
[2023-04-18 21:19] LABS: Glucose - Point of Care 147 mg/dl (70-99)
[2023-04-18] MEDS: SENOKOT-S 1 TABLET PO (22:01)
[2023-04-18] MEDS: DULCOLAX 5 MG PO (22:01)
[2023-04-18] MEDS: LANTUS 0.100000000000000006 UNITS SC (22:02)
[2023-04-18 23:38] VITALS: BP 122/69
[2023-04-19] MEDS: ROXICODONE 10 MG PO ×3 (00:01→12:05)
[2023-04-19 03:57] VITALS: BP 106/54
[2023-04-19 07:00] VITALS: BP 110/68
--- NOTE | 2023-04-19 07:42 | PN.CDI ---
CDI
- -
CDI:
Physician Documentation Request
Admit Date: 04/14/23 16:32
Dear Doctor Marian,
Please review the following and provide your response in the progress notes.
Clinical Indicators:
- Patient admit for Acute on chronic heart failure with preserved EF exacerbation
- per H&P pmh lumbar spinal stenosis, home medication 10mg Oxycodone Q6H for 'left shoulder pain'
- Documented medication 04/14-04/19 10mg Oxycodone x 19
If possible, please provide further specificity as outlined below:
Opioid Dependence
Opioid use with dependence
Other
Use of terms such as suspected, likely, concern for, or probable (associated with a specific diagnosis that is being evaluated, monitored, or treated as if it exists) are acceptable and can be coded in the inpatient setting, when documented at the
time of discharge.
Thank you,
Luis Zimmer RN
CDI Specialist
Please use your independent medical judgment in providing your response.
[2023-04-19 07:55] LABS: Glucose - Point of Care 142 mg/dl (70-99)
[2023-04-19] MEDS: NOVOLOG FLEXPEN-LOW RESISTANCE SC ×2 (08:33→12:04)
[2023-04-19] MEDS: LASIX 40 MG IV (08:34)
[2023-04-19] MEDS: ELIQUIS PO ×2 (08:34→10:46)
[2023-04-19] MEDS: DITROPAN 5 MG PO (08:34)
[2023-04-19] MEDS: KCL 20 MEQ PO (08:35)
[2023-04-19] MEDS: CRESTOR 5 MG PO (08:35)
[2023-04-19] MEDS: CARDIZEM CD 240 MG PO (08:35)
[2023-04-19] MEDS: EFFEXOR XR 75 MG PO (08:35)
[2023-04-19] MEDS: PROTONIX 40 MG PO (08:35)
[2023-04-19] MEDS: TOPROL XL 50 MG PO (08:35)
[2023-04-19] MEDS: NEURONTIN 300 MG PO (08:35)
[2023-04-19] MEDS: ALDACTONE 12.5 MG PO (08:35)
--- NOTE | 2023-04-19 08:46 | W.PN.HOSP.TC ---
Today's Communication/Plan
-
await final cards recs prior to dc home/VN
Assessment / Plan
Assessment / Plan
Assessment:
Acute on chronic heart failure with preserved EF exacerbation
- continue IV Lasix - requires intensive monitoring - hopefully transition to PO Lasix today. Await cards recs.
- Metolazone if indicated by Cardiology
- Echo: Normal left ventricular size and systolic function.� Mild concentric left ventricular hypertrophy.� No regional wall motion abnormalities are seen. Abnormal (paradoxical) septal motion consistent with left bundle branch block. LV ejection
fraction is 50-55%. Mild tricuspid regurgitation. Compared to the previous limited echo Oct 2021 for EF, EF was 55-60% at that time.
DM2 without hyperglycemia
- A1c 6.6%
- continue current insulin doses
Essential hypertension - stable.
CKD 3b - creatinine currently at baseline.� Monitor on diuresis. Creatinine stable so far.
Persistent Atrial Fib - continue Eliquis.
HCV/cirrhosis
History of pulmonary carcinoid syndrome
Hyperlipidemia -on Crestor.
PAD - right popliteal artery stent 2013.
JAYSON
Super morbid obesity due to excess calories
Hypokalemia - replete prn
Chronic rectal bleeding from hemorrhoids
- ordered prep H
- patient refusing suppos
- increase bowel regimen to include Miralax
- OP GI f/u. Will also refer to OP CRS
Opioid dependence
DVT ppx: Eliquis
Code: Full
More than 30 minutes spent in discharge including
Final examination of the patient
Summarizing hospital stay
Instructions for continuing care to all relevant caregivers
Preparation of discharge records, prescriptions, and referral forms
Total time spent (in minutes): 41
Anticipated Discharge: Today
Subjective/Interval History
-
Date of Service: April 19, 2023
some minor bleeding from known hemorrhoids, patient asked for Eliquis to be held (she hold it intermittenly at home if hemorrhoids particularly active)
denies any new complaints otherwise
Objective Data
-
Vital Signs:
Vital Signs
Temp Pulse Resp BP Pulse Ox
97.8 F 73 16 110/68 95
04/19/23 07:00 04/19/23 08:34 04/19/23 07:00 04/19/23 08:34 04/19/23 07:00
I&O
04/18/23 04/19/23 04/20/23
06:59 06:59 06:59
Intake Total 1400 / 1400 600 / 600
Output Total 625 / 625
Balance 1400 / 1400 -25 / -25
Physical Exam
-
General: No Apparent Distress
HEENT: Normocephalic and Atraumatic
Respiratory: Negative Wheezes or Rales
Cardiac: Regular Rhythm and S1/S2
GI: Soft
Genito-urinary: No Costovertebral Tender
Musculoskeletal: No Edema
Neuro: AO x 3
Psych: Calm
Data Reviewed
-
Total Time Spent with Patient (in minutes): 41
Labs: Labs Reviewed by me
[2023-04-19 09:12] LABS: Hematocrit 30.9 % (37.0-47.0); Hemoglobin 10.6 g/dL (12.0-16.0); Mean Corp Hgb Conc. 34.3 g/dL (33.0-37.0); Mean Corpuscular Hgb 31.5 pg (27.0-31.0); Mean Platelet Volume 11.3 fL (7.4-10.4); Platelet Count 118 10^3/uL (130-400); Red Blood Cell Count 3.36 10^6/uL (4.20-5.40); Red Cell Dist. Width 13.2 % (11.5-14.5); White Blood Cell Count 4.9 10^3/uL (4.8-10.8)
[2023-04-19 09:17] VITALS: BMI 49.5
[2023-04-19 09:49] LABS: Blood Urea Nitrogen 48 mg/dl (7-17); Calcium 8.7 mg/dl (8.4-10.2); Carbon Dioxide 34 mmol/L (22-30); Chloride 94 mmol/L (98-107); Estimated Creatinine Clearance 40 ml/min; Glucose 198 mg/dl (70-99); Potassium 3.4 mmol/L (3.5-5.1); Sodium 135 mmol/L (135-145); eGFR 34.27
[2023-04-19 11:00] VITALS: BP 105/62
--- NOTE | 2023-04-19 11:17 | W.PN.CARDCBS ---
Today's Communication / Plan
-
Has diuresed well. Creatinine at 1.6.
Will switch to Lasix 40 mg p.o. twice daily.
Okay for discharge. Will arrange follow-up.
Impression / Plan
-
PCP: Joanie Jane PA-C
Animal Control Licensing Worker: Dr. Lindo
Impression:
Presented with weight gain, SOB
Acute on chronic HFpEF
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
Persistent atrial fibrillation
Chronic Eliquis OAC
CKD 3b
H/o encephalopathy 2012
History of carcinoid
Chronic lymphedema
Mild CAD by cath 1999
LBBB
PAD s/p popliteal stent
HTN
HLD
s/p left upper lobectomy for lung cancer
JAYSON
DM2 w/ peripheral neuropathy
COPD
Obesity h/o gastric bypass 2018
Total right knee replacement December 2013 complicated by arterial injury requiring popliteal stent
Laminectomy 2014
Left hydronephrosis, chronic
Echo 06/21/21: EF 55 to 60% with paradoxical septal wall motion consistent with known LBBB, stage II diastolic dysfunction, normal right ventricular size and function, mild MR, mild TR, no change compared to previous
Echo 10/23/21: on a technically difficult study demonstrates normal LV size and function.
Echo 04/17/2023: EF 55 to 60%, mild TR
Plan:
-Has diuresed well. Will switch to Lasix 40 mg p.o. twice daily. Weight at 270. Creatinine at 1.6. Will arrange follow-up.
-Follow daily weights, I&Os. Dry weight is reportedly around 266-271lbs.
-Remains in rate controlled atrial fibrillation. HR stable on toprol and diltiazem.
-Continue Eliquis 5mg BID for anticoagulation.
-Echo with EF 55%, mild TR
-K 3.7, continue repletion with ongoing diuresis.
-Continue Crestor 5mg daily
HPI: bAbi is a 72-year-old female with past medical history of chronic HFpEF, cirrhosis, persistent atrial fibrillation, CKD, CAD, LBBB, PAD, hypertension, hyperlipidemia, JAYSON, DM 2, and COPD who presents to ER for evaluation of worsening
shortness of breath and weight gain. She reports over the past few weeks she has noticed increased shortness of breath that has been progressively worsening. She has also had over 10 pound weight gain in the last week. She notes her legs have
become more edematous and she feels swelling into her thighs. She was seen by her PCP yesterday who was concerned for acute heart failure exacerbation and sent her for stat labs. Lab work returned concerning for possible heart failure and she was
called this morning and instructed to come to ER for admission. Lab work revealed elevated proBNP at 3200. Chest x-ray is pending in the ER. Plan is for admission for IV diuresis given acute heart failure exacerbation. Cardiology consulted.
Patient reports shortness of breath while at rest in stretcher. Denies any chest pain.
Progress Note - Animal Control Licensing Worker
Subjective
Date of Service: April 19, 2023
feels better.
Objective
Labs:
04/19/23 08:53
04/19/23 08:53
Labs
Hgb 10.6 g/dL (12.0-16.0) L 04/19/23 08:53
Hct 30.9 % (37.0-47.0) L 04/19/23 08:53
Plt Count 118 10^3/uL (130-400) L 04/19/23 08:53
Sodium 135 mmol/L (135-145) 04/19/23 08:53
Potassium 3.4 mmol/L (3.5-5.1) L 04/19/23 08:53
BUN 48 mg/dl (7-17) H 04/19/23 08:53
Creatinine 1.6 mg/dL (0.6-1.0) H 04/19/23 08:53
Glucose 198 mg/dl (70-99) H 04/19/23 08:53
Vital Signs and I&O:
Vital Signs
Temp Pulse Resp BP Pulse Ox
98.1 F 69 16 105/62 97
04/19/23 11:00 04/19/23 11:00 04/19/23 11:00 04/19/23 11:00 04/19/23 11:00
Vital Signs
Temp Pulse Resp BP Pulse Ox
98.1 F 69 16 105/62 97
04/19/23 11:00 04/19/23 11:00 04/19/23 11:00 04/19/23 11:00 04/19/23 11:00
Intake & Output
04/17/23 04/18/23 04/19/23 04/20/23
06:59 06:59 06:59 06:59
Intake Total 540 / 540 1400 / 1400 600 / 600
Output Total 625 / 625
Balance 540 / 540 1400 / 1400 -25 / -25
Physical Exam
Physical Exam
GEN: No distress, awake, Ox3
HEENT: supple, anicteric, mmm
LUNGS: CTA, no wheezes/rales
CV: Irreg, S1/S2, 1/6 syst LSB, no murmur
ABD: soft, BS+, NT/ND
EXT: trace edema
NEURO: Gross non-focal
SKIN: No rash
[2023-04-19 12:01] LABS: Glucose - Point of Care 132 mg/dl (70-99)
--- NOTE | 2023-04-19 12:26 | W.DS.TRANS ---
DC Summary - Furnace [employer]
-
Discharge Instructions:
Discharge Diagnosis/Procedures acute on chronic CHF, chronic rectal bleeding
from hemorrhoids
Diet 2 Gram Sodium
Activity No restrictions
Other Services VN
Specialty Instructions Weigh Daily
Instructions: *DCA Heart Failure Instructions
Stand-Alone Forms:
Changes to Home Medications: Yes
Discharge Medications:
DC Medications w/original date entered in [facility]
gabapentin 600 mg tablet 1,200 mg PO BID Neurological Condition 02/22/22
pantoprazole 40 mg tablet,delayed release 40 mg PO DAILY Gastrointestinal issue 02/22/22
rosuvastatin 5 mg tablet 5 mg PO DAILY High cholesterol 02/22/22
cyanocobalamin (vitamin B-12) 1,000 mcg/mL injection solution 1,000 mcg IM QMONTH Supplement 03/27/22
venlafaxine 75 mg capsule,extended release 24 hr 75 mg PO DAILY Depression 03/27/22
sennosides 8.6 mg-docusate sodium 50 mg tablet 2 tab-cap PO HS #180 tab-caps 04/07/22
insulin degludec 100 unit/mL subcutaneous solution (Tresiba U-100 Insulin) 24 unit (0.24 mL) SC DAILY Diabetes #0 mL 06/23/22
bisacodyl 5 mg tablet 5 mg PO HS Constipation 11/29/22
oxybutynin chloride 10 mg tablet,extended release 24 hr 10 mg PO DAILY Urinary Issue 11/29/22
oxycodone 10 mg tablet 10 mg PO Q6H Left shoulder pain 11/29/22
apixaban 5 mg tablet (Eliquis) 5 mg PO BID #60 tabs 04/19/23
diltiazem HCl 240 mg tablet,extended release 24 hr 240 mg PO DAILY Blood pressure #30 tabs 04/19/23
furosemide 40 mg tablet (Lasix) 40 mg PO BID #60 tabs 04/19/23
metoprolol succinate 50 mg tablet,extended release 24 hr 50 mg PO BID Blood pressure #60 tabs 04/19/23
potassium chloride 20 mEq tablet,extended release(part/cryst) (Klor-Con M) 20 meq PO DAILY Electrolyte Repletion #30 tabs 04/19/23
spironolactone 25 mg tablet 12.5 mg PO DAILY Fluid Retention/Swelling #30 tabs 04/19/23
Home Medication Changes
Torsemide stopped in favor of Lasix
Pending Results: No
Total time spent discharging patient (in min): 41
--- NOTE | 2023-04-19 16:53 | CM ---
CM following re: d/c planning
Chart reviewed
Pt is medically stable for d/c
Pt is set up with VN provided by [facility]
IMM reviewed and copy provided
PLAN; d/c home with [facility]
== END 2023-04-19 15:12 | disposition home health service (06) | DRG 291 ==
LOC: 4 EAST ACU 16:32
PROVIDERS: Emergency Medicine; ADMITTING PHYSICIAN Hospitalist; ATTENDING PHYSICIAN Internal Medicine; CONSULT PHYSICIAN Internal Medicine Cardiovascular Disease; EMERGENCY PHYSICIAN Emergency Medicine; FAMILY PHYSICIAN Physician Assistant
DX: I13.0 Hypertensive heart and chronic kidney disease with heart failure and stage 1 through stage 4 chronic kidney disease, or unspecified chronic kidney disease (principal); I50.33 Acute on chronic diastolic (congestive) heart failure; F11.20 Opioid dependence, uncomplicated; I48.19 Other persistent atrial fibrillation; N13.30 Unspecified hydronephrosis; Z68.42 Body mass index [BMI] 45.0-49.9, adult; Z79.01 Long term (current) use of anticoagulants; Z87.891 Personal history of nicotine dependence; E66.01 Morbid (severe) obesity due to excess calories; E11.51 Type 2 diabetes mellitus with diabetic peripheral angiopathy without gangrene; E11.22 Type 2 diabetes mellitus with diabetic chronic kidney disease; E11.42 Type 2 diabetes mellitus with diabetic polyneuropathy; E11.65 Type 2 diabetes mellitus with hyperglycemia; E78.00 Pure hypercholesterolemia, unspecified; J44.9 Chronic obstructive pulmonary disease, unspecified; E87.6 Hypokalemia; K64.9 Unspecified hemorrhoids; N18.32 Chronic kidney disease, stage 3b
CPT/HCPCS: 36415; 71045; 80048; 80053; 82728; 82962; 83036; 83540; 83735; 83880; 84155; 84165; 84484; 85025; 85027; 93005; 93306; 96374; 97116; 97162; 97530; 99285

== ENCOUNTER → 2023-06-07 10:45 | Outpatient (REF) | payer MEDICARE, OTHER, SELFPAY ==
[2023-06-07 11:33] LABS: Albumin 4.2 g/dl (3.5-5.0); Blood Urea Nitrogen 40 mg/dl (7-17); Calcium 8.9 mg/dl (8.4-10.2); Carbon Dioxide 36 mmol/L (22-30); Chloride 95 mmol/L (98-107); Glucose 118 mg/dl (70-99); Phosphorus 5.3 mg/dl (2.5-4.5); Potassium 3.6 mmol/L (3.5-5.1); Sodium 137 mmol/L (135-145); eGFR 31.86
== END ==
LOC: CLAB 10:45
PROVIDERS: ATTENDING PHYSICIAN Internal Medicine Cardiovascular Disease; FAMILY PHYSICIAN Physician Assistant
DX: I13.0 Hypertensive heart and chronic kidney disease with heart failure and stage 1 through stage 4 chronic kidney disease, or unspecified chronic kidney disease (principal); I50.33 Acute on chronic diastolic (congestive) heart failure
CPT/HCPCS: 36415; 80069

== ENCOUNTER → 2023-06-28 10:36 | Outpatient (REF) | payer MEDICARE, OTHER, SELFPAY ==
[2023-06-28 11:31] LABS: Blood Urea Nitrogen 49 mg/dl (7-17); Calcium 9.2 mg/dl (8.4-10.2); Chloride 88 mmol/L (98-107); Glucose 133 mg/dl (70-99); Potassium 2.9 mmol/L (3.5-5.1); Sodium 138 mmol/L (135-145); eGFR 31.86
[2023-06-28 11:37] LABS: NT-proBNP 2010 pg/ml
[2023-06-28 11:42] LABS: Carbon Dioxide 38 mmol/L (22-30)
== END ==
LOC: CLAB 10:36
PROVIDERS: ATTENDING PHYSICIAN Physician Assistant
DX: I50.32 Chronic diastolic (congestive) heart failure (principal)
CPT/HCPCS: 80048; 83880

== ENCOUNTER → 2023-06-30 11:16 | Outpatient (REF) | payer MEDICARE, OTHER, SELFPAY ==
[2023-06-30 12:14] LABS: Blood Urea Nitrogen 49 mg/dl (7-17); Chloride 88 mmol/L (98-107); Glucose 136 mg/dl (70-99); Potassium 3.7 mmol/L (3.5-5.1); Sodium 136 mmol/L (135-145); eGFR 34.27
[2023-06-30 12:34] LABS: Carbon Dioxide 38 mmol/L (22-30)
== END ==
LOC: OLAB 11:16
PROVIDERS: ATTENDING PHYSICIAN Physician Assistant
DX: E87.6 Hypokalemia (principal); R79.89 Other specified abnormal findings of blood chemistry
CPT/HCPCS: 36415; 80048

== ENCOUNTER → 2023-07-03 11:00 | Outpatient (REF) | payer MEDICARE, OTHER, SELFPAY ==
[2023-07-03 13:35] LABS: Urine Albumin 3+ (Neg - Trace); Urine Bilirubin Negative (Negative); Urine Character Clear (Clear); Urine Color Yellow; Urine Glucose Negative (Negative); Urine Ketone Negative (Negative); Urine Leukocyte 1+ (Negative); Urine Nitrite Negative (Negative); Urine Occult Blood 4+ (Negative); Urine Specific Gravity 1.015 (<1.030); Urine Urobilinogen Negative (Neg - 1+)
[2023-07-03 14:48] LABS: Urine Mucus Few
[2023-07-03 14:49] LABS: Urine Amorphous Seen; Urine Squamous Cell >30 /LPF (Few)
[2023-07-03 14:50] LABS: Urine White Cell 30-40 /HPF (0-5)
[2023-07-03 14:51] LABS: Urine Bacteria Few (Negative)
== END ==
LOC: CLAB 11:00
PROVIDERS: ATTENDING PHYSICIAN Physician Assistant
DX: Z87.440 Personal history of urinary (tract) infections (principal); R35.0 Frequency of micturition; R41.0 Disorientation, unspecified
CPT/HCPCS: 36415; 81003; 81015; 87086

== ENCOUNTER 2023-07-08 00:47 | Inpatient (IN) | payer MEDICARE, OTHER, SELFPAY ==
[2023-07-07] VITALS (9 sets, daily range): BP systolic 93–128; BP diastolic 60–97
[2023-07-07 15:43] LABS: % Basophils 0.4 % (0-2); % Eosinophils 1.4 % (0-6); % Immature Granulocytes 0.3 % (0-0.5); % Lymphocytes 11.1 % (20.5-51.1); % Monocytes 9.9 % (1.7-9.3); % Neutrophils 76.9 % (42.2-75.2); Absolute Eosinophils 0.1 10^3/uL (0-0.7); Absolute Lymphocytes 0.8 10^3/uL (1.2-3.4); Absolute Monocytes 0.7 10^3/uL (0.1-0.6); Absolute Neutrophils 5.5 10^3/uL (1.4-6.5); Hemoglobin 11.1 g/dL (12.0-16.0); Mean Corp Hgb Conc. 33.6 g/dL (33.0-37.0); Mean Corpuscular Hgb 29.8 pg (27.0-31.0); Mean Corpuscular Volume 88.7 fL (81.0-99.0); Mean Platelet Volume 10.9 fL (7.4-10.4); Nucleated Red Blood Cells % 0 %; Platelet Count 170 10^3/uL (130-400); Red Blood Cell Count 3.72 10^6/uL (4.20-5.40); Red Cell Dist. Width 13.1 % (11.5-14.5); White Blood Cell Count 7.1 10^3/uL (4.8-10.8)
[2023-07-07 16:03] LABS: ALT (SGPT) 14 U/L (0-35); AST (SGOT) 22 U/L (14-36); Albumin 4.4 g/dl (3.5-5.0); Alkaline Phosphatase 108 U/L (38-126); Blood Urea Nitrogen 51 mg/dl (7-17); Calcium 8.5 mg/dl (8.4-10.2); Carbon Dioxide 34 mmol/L (22-30); Chloride 86 mmol/L (98-107); Glucose 171 mg/dl (70-99); Potassium 2.9 mmol/L (3.5-5.1); Sodium 130 mmol/L (135-145); Total Bilirubin 0.8 mg/dl (0.2-1.3); Total Protein 7.4 g/dl (6.3-8.2); eGFR 27.88
--- NOTE | 2023-07-07 17:45 | ED.GENMED ---
History of Present Illness
General
Chief Complaint: Abnormal Lab Value
Time Seen by Provider: 07/07/23 17:19
Travel History
Have you had any contact with someone who has COVID-19?: No
Do you have any symptoms of coronavirus? Fever > 100 degrees, chills, cough, shortness of breath, sore throat, loss of taste or smell, muscle aches, or headache?: No
History of Present Illness
History of Present Illness:
72-year-old female with history of A-fib on Eliquis, CHF, hypertension, hyperlipidemia, peripheral arterial disease, cirrhosis of the liver, and lower extremity neuropathy presents to the emergency department for evaluation of abnormal outpatient
labs. Due to recent fluid retention patient was set up for a subcutaneous infusion of Lasix, she was administered 80 mg subcu over 5 hours last night. She states she did take her normal 80 mg a day of Lasix yesterday but did not take any today.
Was supposed to undergo repeat Lasix infusion tomorrow but due to abnormal labs from today this was discontinued. She notes that she did have a 3 pound weight loss after the infusion last night. She reports mild shortness of breath. She is
concerned that she has 'jerking movements' when she attempts to move or twist her body, and as a result feels unsteady when walking. She typically takes 20 mEq of supplemental potassium with her home diuretic regimen, states she has been fully
compliant with her medication regimen at home.
Past History
Past History
ED Past Medical History: Arrthythmia (A fib), COPD, HTN, Hypercholesterolemia, IDDM, Other (LBBB), Other (Hepatitis) and Other (Hep C. Anxiety, Sleep apnea, morbid obesity, liver failure, renal failure, lung cancer, chronic back pain in pain
management)
ED Past Surgical History: Orthopedic (L total knee 04/08/2013. R popliteal artery stent 01/12/14) and Other (resection right lung,)
Social History
Tobacco: Former smoker
Alcohol: Occasional
Drug: None
Personal:
Living: with family
Employment: Not employed
Family History
Family History: Other (Noncontributory)
Review of Systems
Review of Systems
Allergies reviewed?: Yes
All Other Systems: ROS reviewed and negative except as documented in HPI and ROS
Phy Exam
Physical Exam
Physical Exam:
GEN: Well appearing, NAD, WDWN
HEENT: Oral mucosa moist, no scleral icterus, no nasal congestion
Cardiac: Regular rate
Lung: No respiratory distress, no tachypnea
MSK: No gross deformity or injuries
Skin: Good color, no pallor or jaundice, no rashes
Neuro: AO x3, CN II-XII grossly intact. Visual light intact x 4 bilat. No limb drift x 4. No limb ataxia x 4. No aphasia or dysarthria. Sensation intact x 4 extremities
Psych: Calm, cooperative
Course
Orders/Labs/Results
Orders:
Orders
07/07/23 15:36
CMP [Comprehensive Metabolic Panel] Urgent
Complete Blood Count/With Diff Urgent
Magnesium Urgent
Serum Osmolality Urgent
07/07/23 17:44
Add On- LAB Urgent
Tests Added?: BNP; serum osmolality; magnesium
Magnesium Sulfate 2 Gram/50 ml [Magnesium Sulfate] 2 gram in 50 ml IV NOW
Potassium Chloride [KCl] 40 meq PO NOW STA
07/07/23 17:45
CR Chest - 2 Views Urgent
Comment:
Reason For Exam: SOB
07/07/23 17:46
Electrocardiogram (*1) Urgent
Reason for Study: QTc Monitoring
EKG- Treatment ONCE
07/07/23 17:54
Osmolality, Random Urine Urgent
Date Specimen was Collected: 07/07/23
Time Specimen was Collected: 17:50
Urinalysis Reflex To Culture Urgent
Date Specimen was Collected: 07/07/23
Time Specimen was Collected: 17:50
Urine Microscopic Reflex Cult Urgent
Urine Sodium Urgent
Date Specimen was Collected: 07/07/23
Time Specimen was Collected: 17:50
Urine Culture Urgent
IMER Source: U
Specimen Description:
Date Specimen was Collected: 07/07/23
Time Specimen was Collected: 17:50
07/07/23 18:03
Potassium Chloride [KCl] 20 meq 0.9% Sodium Chloride 250 ml [Nss] 250 ml IV NOW
07/07/23 23:20
BMP [Basic Metabolic Panel] Routine
Abnormal Lab Results
07/07/23 07/07/23 07/07/23
15:36 17:54 23:20
RBC 3.72 L 10^6/uL
(4.20-5.40)
Hgb 11.1 L g/dL
(12.0-16.0)
Hct 33.0 L %
(37.0-47.0)
MPV 10.9 H fL
(7.4-10.4)
Absolute Lymphs (auto) 0.8 L 10^3/uL
(1.2-3.4)
Absolute Monos (auto) 0.7 H 10^3/uL
(0.1-0.6)
Neutrophils % 76.9 H %
(42.2-75.2)
Lymphocytes % 11.1 L %
(20.5-51.1)
Monocytes % 9.9 H %
(1.7-9.3)
Sodium 130 L mmol/L 130 L mmol/L
(135-145) (135-145)
Potassium 2.9 L mmol/L 2.8 L mmol/L
(3.5-5.1) (3.5-5.1)
Chloride 86 L mmol/L 88 L mmol/L
(98-107) (98-107)
Carbon Dioxide 34 H mmol/L 37 H mmol/L
(22-30) (22-30)
BUN 51 H mg/dl 51 H mg/dl
(7-17) (7-17)
Creatinine 1.9 H mg/dL 1.8 H mg/dL
(0.6-1.0) (0.6-1.0)
Glucose 171 H mg/dl 196 H mg/dl
(70-99) (70-99)
Calcium 8.2 L mg/dl
(8.4-10.2)
Magnesium 2.5 H mg/dl
(1.6-2.3)
Ur Occult Blood Reflex 1+ A
(Negative)
Leukocyte Esterase Rfl 2+ A
(Negative)
Urine RBC 3-6 A /HPF
(0-2)
Urine WBC (Reflex) 16-20 A /HPF
(0-5)
Urine Osmolality 270 L mOsm/kg
(300-900)
07/07/23 15:36
07/07/23 23:20
Vital Signs
Initial and Last Documented VS:
Initial Vital Signs
Temp Pulse Resp BP Pulse Ox
98.5 F 73 18 119/73 94
07/07/23 15:28 07/07/23 15:28 07/07/23 15:28 07/07/23 15:28 07/07/23 15:28
Last Documented Vital Signs
Temp Pulse Resp BP Pulse Ox
98.5 F 71 21 106/94 95
07/07/23 15:28 07/07/23 22:45 07/07/23 22:45 07/07/23 21:01 07/07/23 19:29
MDM/Problems Addressed
MDM/Problems Addressed:
72 yo female presents w/ hypokalemia likely due to increase furosemide recently. However after IV infusion and PO administration, pt's K did not improve. She is quite weak, likely due to physical deconditioning from sedentary lifestyle, and thus we
will admit for further K repletion and consideration of PT/OT/SNF
*Critical Care Note
Total Time (30-74mins, 75-104mins- exclusive of procedures): Not Applicable
ED Attending Note
-
Portions of this chart may have been created with voice recognition software.� Occasional wrong word or��sound alike� substitutions may have occurred due to the inherent limitations of voice recognition software.
Discharge Plan
Departure
Patient Disposition: Admit
Date of Disposition: 07/07/23
Time of Disposition: 23:55
Admit to: Telemetry
Presentation/result/management discussed w/ accepting MD/DO: Hospitalist
Discharge Problem:
Acute hypokalemia, Generalized weakness, Ambulatory dysfunction
Prescriptions:
No Action
gabapentin 600 mg Tablet
1,200 mg PO BID
pantoprazole 40 mg Tablet,Delayed Release (Dr/Ec)
40 mg PO DAILY
rosuvastatin 5 mg Tablet
5 mg PO DAILY
venlafaxine 75 mg capsule,extended release 24hr
75 mg PO DAILY
cyanocobalamin (vitamin B-12) 1,000 mcg/mL Solution
1,000 mcg IM QMONTH
Rx Instructions:
Next dose- 11/30/2022
sennosides-docusate sodium 8.6-50 mg tablet
2 tab-cap PO HS Qty: 180 0RF
insulin degludec [Tresiba U-100 Insulin] 100 unit/mL Solution
24 unit SC DAILY Qty: 0 0RF
bisacodyl 5 mg tablet
5 mg PO HS
oxycodone 10 mg tablet
10 mg PO Q6H
oxybutynin chloride 10 mg Tablet Extended Release 24hr
10 mg PO DAILY
Eliquis 5 mg Tablet
5 mg PO BID Qty: 60 0RF
furosemide [Lasix] 40 mg tablet
40 mg PO BID Qty: 60 0RF
metoprolol succinate 50 mg tablet extended release 24 hr
50 mg PO BID Qty: 60 0RF
spironolactone 25 mg Tablet
12.5 mg PO DAILY Qty: 30 0RF
potassium chloride [Klor-Con M20] 20 mEq tablet,ER particles/crystals
20 meq PO DAILY Qty: 30 0RF
diltiazem HCl 240 mg Tablet Extended Release 24 Hr
240 mg PO DAILY Qty: 30 0RF
Referrals:
Joanie Jane PA [Family Provider] -
Interventions
Interventions:
*Risk Screen - Suicide Last Done: 07/07/23 15:28
*General Assessment Last Done: 07/07/23 15:28
*Neglect/Abuse Screening Last Done: 07/07/23 15:28
ED- Fall Risk Assessment Last Done: 07/07/23 17:42
*ED COVID-19 Vaccine History Last Done: 07/07/23 15:28
Discharge Date and Time
Print Language: SALV[place]ORE[place]
[2023-07-07 18:11] LABS: Urine Albumin Negative (Neg - Trace); Urine Bilirubin Negative (Negative); Urine Character Clear (Clear); Urine Color Yellow; Urine Glucose Negative (Negative); Urine Ketone Negative (Negative); Urine Leukocyte 2+ (Negative); Urine Nitrite Negative (Negative); Urine Occult Blood 1+ (Negative); Urine Specific Gravity 1.005 (<1.030); Urine Urobilinogen Negative (Neg - 1+)
[2023-07-07] MEDS: KCL 40 MEQ PO (18:16)
[2023-07-07] MEDS: MAGNESIUM SULFATE 50 IV (18:16)
[2023-07-07 18:18] LABS: Osmolality Urine 270 mOsm/kg (300-900)
[2023-07-07 18:20] LABS: Urine Squamous Cell 0-2 /LPF (Few)
[2023-07-07 18:21] LABS: Urine White Cell 16-20 /HPF (0-5)
[2023-07-07 18:29] LABS: Urine Sodium 45 mmol/L (30-90)
[2023-07-07] MEDS: KCL 260 MEQ IV (18:32)
[2023-07-07 18:35] LABS: Magnesium 2.5 mg/dl (1.6-2.3)
[2023-07-07 18:43] LABS: Osmolality Serum 292 mOsm/kg (275-300)
[2023-07-07 23:47] LABS: Blood Urea Nitrogen 51 mg/dl (7-17); Calcium 8.2 mg/dl (8.4-10.2); Carbon Dioxide 37 mmol/L (22-30); Chloride 88 mmol/L (98-107); Estimated Creatinine Clearance 36 ml/min; Glucose 196 mg/dl (70-99); Potassium 2.8 mmol/L (3.5-5.1); Sodium 130 mmol/L (135-145); eGFR 29.75
[2023-07-08] VITALS (10 sets, daily range): BP systolic 100–139; BP diastolic 58–79; PULSE 71–74; O2SAT 94–99; BMI 50.2
--- NOTE | 2023-07-08 00:55 | HPS.HSE ---
Addendum entered and electronically signed by Ricardo Hoffman DO 07/08/23 01:18:
A/P:
Questionable UTI
- Patient started on Cipro today for possible UTI based on outpatient labs done 07/02.
- UA with WBC and bacteria, but > 30 squamous cells.
- Culture grew > 100k CFU of mixed thomas, consistent with contamination (consistent with UA results).
- Hold further abx for now and follow for any symptoms.
Original Note:
Family Physician
-
Family Physician: SAMMIE Gooden
Chief Complaint
-
Abnormal Lab, Fatigue, Confusion
History of Present Illness
Patient is a 72y F with PMH significant for CHFpEF, DM-II, A-Fib and CKD who presents to ED for evaluation of abnormal outpatient labs as well as fatigue and confusion. Patient is followed by [facility] for her chronic HFpEF. She states that her
weight had increased recently and she received a dose of subcutaneous furosemide infusion on Monday evening over 5 hours. She noted about 3 pounds weight loss since that dose. Patient states that she took all of her other usual doses of
medications on and Monday - including PO Lasix and potassium.
Patient had outpatient labs done on Monday - and was reportedly / tentatively set to receive a second subcut Lasix dose - and was notified that her labs were abnormal and she should present to the ED for evaluation.
Patient also notes that she has continued to feel somewhat short of breath and fatigues - despite this week's weight loss / diuresis.
She has also noted general sense of 'fogginess' and confusion and she does seem to be somewhat slow in her responses during our interview.
She also reports recent increase in symptoms of tremulousness and occasional 'jerky' movements. These symptoms have been present for quite some time, but seem worse in the past week or so.
No complaints of chest pain. No fevers or chills.
Patient states that she was recently diagnosed with UTI and was started on oral Cipro today. She has taken one dose so far.
Medical History
Past Medical History
Past Medical History: Reports Other
Additional Past Medical History:
Chronic HFpEF
ASCVD / PAD
CKD IIIb
HCV, cirrhosis
JAYSON
Hypertension
DM-II
COPD
Lumbar spinal stenosis
Anxiety/depression
History of carcinoid syndrome
Peripheral neuropathy
Colon polyps
Paroxysmal atrial fibrillation
Chronic lower extremity lymphedema
Past Surgical History: Reports Other
Additional Past Surgical History:
Bilateral tubal ligation
Carpal tunnel x 2
Left upper lobe lobectomy
Lumbar laminectomy
Right total knee replacement
Bariatric sleeve procedure
Left total knee replacement
Cataract surgery
Social History
Tobacco: Former Smoker
Alcohol: Occasional
Drug: None
Personal: Single
Living: Alone
Family History
Family History: Not pertinent
Allergies / Home Medications
Allergies reflects when Allergies were last updated in [facility].
Home Medications with original date entered in [facility]
Allergy/Medication List:
Allergies
Allergy/AdvReac Type Severity Reaction Status Date / Time
heparin Allergy Rash Verified 07/07/23 15:31
Penicillins Allergy Hives Verified 07/07/23 15:31
(tolerated
cephalosporins
Apr 2016)
pregabalin [From Lyrica] Allergy Hives Verified 07/07/23 15:31
Home Medications
gabapentin 600 mg tablet 1,200 mg PO BID Neurological Condition 02/22/22
pantoprazole 40 mg tablet,delayed release 40 mg PO DAILY Gastrointestinal issue 02/22/22
rosuvastatin 5 mg tablet 5 mg PO DAILY High cholesterol 02/22/22
cyanocobalamin (vitamin B-12) 1,000 mcg/mL injection solution 1,000 mcg IM QMONTH Supplement 03/27/22
venlafaxine 75 mg capsule,extended release 24 hr 75 mg PO DAILY Depression 03/27/22
sennosides 8.6 mg-docusate sodium 50 mg tablet 2 tab-cap PO HS #180 tab-caps 04/07/22
insulin degludec 100 unit/mL subcutaneous solution (Tresiba U-100 Insulin) 24 unit (0.24 mL) SC DAILY Diabetes #0 mL 06/23/22
bisacodyl 5 mg tablet 5 mg PO HS Constipation 11/29/22
oxycodone 10 mg tablet 10 mg PO Q6H Left shoulder pain 11/29/22
apixaban 5 mg tablet (Eliquis) 5 mg PO BID #60 tabs 04/19/23
diltiazem HCl 240 mg tablet,extended release 24 hr 240 mg PO DAILY Blood pressure #30 tabs 04/19/23
furosemide 40 mg tablet (Lasix) 40 mg PO BID #60 tabs 04/19/23
potassium chloride 20 mEq tablet,extended release(part/cryst) (Klor-Con M) 20 meq PO DAILY Electrolyte Repletion #30 tabs 04/19/23
spironolactone 25 mg tablet 12.5 mg (1/2 x 25 mg) PO DAILY Fluid Retention/Swelling #30 tabs 04/19/23
metolazone 2.5 mg tablet 2.5 mg PO MO 07/08/23
metoprolol succinate 50 mg tablet,extended release 24 hr 50 mg PO QPM Blood pressure 07/08/23
solifenacin 5 mg tablet (Vesicare) 5 mg PO DAILY 07/08/23
Review of Systems
-
History Source: Patient
A 12 point ROS was completed and negative except as noted: Yes
Constitutional: Reports Weight Loss and Fatigue; Denies Fever or Chills
EENT: Denies Sore Throat
Respiratory: Reports Trouble Breathing; Denies Cough
Cardiac: Denies Chest Pain or Palpitations
Abdomen/GI: Reports Constipated and Other (Hemorrhoids / discomfort / mild bleeding (chronic)); Denies Abdominal Pain, Nausea, Vomiting or Diarrhea
: Reports Frequency; Denies Dysuria
Musculoskeletal: Reports Joint Pain (shoulders / back) and Edema
Neurological: Denies Dizzy or Headache
Psych: Denies Depression or Anxiety
Physical Exam
Vital Signs
Vital Signs
Temp Pulse Resp BP Pulse Ox
98.5 F 67 17 110/60 95
07/07/23 15:28 07/08/23 00:45 07/08/23 00:45 07/07/23 23:23 07/07/23 19:29
Physical Exam
General: Other (72y F in no acute distress.)
HEENT: Moist mucous membranes, PERRLA and Other (Pos JVD.)
Respiratory: Clear; No Wheezes, Rales or Rhonchi
Cardiac: S1/S2, Irregular Rhythm and Murmur (II/ SUZANNE)
GI: Other (Obese, not tender, pos BS.)
Musculoskeletal: No Clubbing, No Cyanosis and No Edema
Neuro: AO x 3
Laboratory Results
-
07/07/23 15:36
07/07/23 23:20
Laboratory Results
Total Bilirubin 0.8 mg/dl (0.2-1.3) 07/07/23 15:36
AST 22 U/L (14-36) 07/07/23 15:36
ALT 14 U/L (0-35) 07/07/23 15:36
Alkaline Phosphatase 108 U/L (38-126) 07/07/23 15:36
Impression/Plan
-
A/P: Patient is a 72y F with PMH significant for CHF, CKD, DM-II and A-Fib who presents to ED for evaluation of abnormal labs and confusion / fatigue.
Hypokalemia
- Admit for further evaluation and treatment.
- Potassium level is consistently 2.8 - 2.9 on repeated labs today.
- Suspect this is due to increased / additional Lasix dosing via subcut infusion.
- Continue PO replacement (initially received 40mEq PO and 20 mEq IV here in the ED).
- Mag level is adequate.
- Follow for improvement in K level.
- Monitor on telemetry for now.
- Not clear that this is related to her movement disorder, especially as these symptoms predated her significant hypokalemia.
Subacute on Chronic HFpEF
- Perhaps mild / residual overload despite recent increase in diuresis and successful weight loss (3 lbs this week).
- Replete potassium first, then consider additional IV doses of Lasix to improve overall volume status.
- Increase Aldactone dose given hypokalemia and need for additional diuresis.
- Hold Lasix acutely / pending improvement in hypokalemia.
- Cardiology evaluation for additional recommendations / med adjustments.
Persistent Atrial Fibrillation
ASCVD / PAD
- Stable. In rate-controlled A-Fib at present.
- Continue current CV med regimen including Eliquis for stroke risk reduction.
CKD III
- Stable. Renal function is at / near known baseline.
- Follow for changes during eventual diuresis.
DM-II
- Stable. Continue basal : bolus insulin regimen.
- Follow glucose and cover with SSI as needed.
- Update A1C.
Chronic Pain Syndrome
Peripheral Neuropathy
- Stable. No recent increase / changes in pain symptoms.
- Patient reports pain from b/l shoulder DJD, neuropathy, etc.
- Change oxycodone to PRN.
- Continue gabapentin.
- PT / OT evaluations.
Chronic Constipation
Chronic Hemorrhoids with Rectal Bleeding
- Stable. Some chronic discomfort, but no acute increase in pain / bleeding / etc.
- Bowel regimen and follow for any new / worsening symptoms.
Morbid obesity due to excess calories
- Affects all aspects of care.
- Encourage healthy diet and increased activity with goal of weight loss.
DVT Prophylaxis: On Eliquis
Code Status: Full
[2023-07-08] MEDS: KCL 40 MEQ PO (01:01)
--- NOTE | 2023-07-08 02:05 | PTCARENOTE ---
Pt admitted to room 2132 from ED via stretcher,aaox3, bedrest, continues with occasional uncontrolled jerking movements of body. Denies chest pain,or SOB.Pt oriented to room and call light, will continue to monitor.
[2023-07-08] MEDS: ROXICODONE 10 MG PO ×4 (02:54→23:55)
[2023-07-08 07:06] LABS: Hemoglobin 10.2 g/dL (12.0-16.0); Mean Corp Hgb Conc. 32.9 g/dL (33.0-37.0); Mean Corpuscular Hgb 28.9 pg (27.0-31.0); Mean Corpuscular Volume 87.8 fL (81.0-99.0); Platelet Count 152 10^3/uL (130-400); Red Blood Cell Count 3.53 10^6/uL (4.20-5.40); Red Cell Dist. Width 13.2 % (11.5-14.5); White Blood Cell Count 4.8 10^3/uL (4.8-10.8)
[2023-07-08 07:31] LABS: Blood Urea Nitrogen 50 mg/dl (7-17); Calcium 8.6 mg/dl (8.4-10.2); Carbon Dioxide 35 mmol/L (22-30); Chloride 91 mmol/L (98-107); Estimated Creatinine Clearance 38 ml/min; Glucose 157 mg/dl (70-99); Sodium 134 mmol/L (135-145); eGFR 31.86
--- NOTE | 2023-07-08 07:41 | CON.CAR ---
Addendum entered and electronically signed by Manuela Mckeon DO 07/08/23 14:21:
I saw and examined the patient.
The Manager Ct's note was reviewed and I agree with the note.
Comment: Seen and examined with cardiac PARobbi Go is a 72-year-old female with past medical history of chronic HFpEF, cirrhosis, persistent atrial fibrillation, CKD, CAD, LBBB, PAD, hypertension, hyperlipidemia, JAYSON, DM 2, and COPD who presents to
ED 07/07/2023 for evaluation for electrolyte disturbance, MARCO, altered mental status and shortness of breath.. Patient has been undergoing diuresis with furoscix patch as outpatient due concern of acute heart failure exacerbation. She received a
dose in early June 2023 and was noted to have hypokalemia which was self corrected with supplementation. She received a second dose 07/05/2023 and blood work performed on 07/07/2023 showed hypokalemia with potassium of 2.8, hyponatremia 131, BUN 51
and creatinine 1.9. During this time patient had also been seen by primary care physician and was found to have UTI and was started on ciprofloxacin 07/06/23. Patient admitted to not feeling well and was referred to emergency department for further
evaluation after abnormal labs. Patient received both K rider, mag rider and oral potassium 80 mEq in emergency department. EKG showed atrial fibrillation with controlled ventricular response and left bundle branch block. Chest x-ray with no
acute cardiopulmonary abnormality. At time of this evaluation she continues to have foggy thinking and feels fatigued this morning. She is also complaining of chronic neuropathic pain in her feet. No shortness of breath at rest but does have
chronic dyspnea on exertion. She also has untreated sleep apnea. No chest pain or pressure. She also reports ongoing body jerks and hand tremors for several months. She also notes mid to low back pain.
GEN: Sitting out of bed to chair. Morbidly obese; body jerks noted.
HEENT: mmm
LUNGS: CTA, no wheezes/rales
CV: Irregularly irregular, S1/S2, distant heart sound
ABD: Morbidly obese, soft, nontender. Positive bowel sounds
EXT: Trace lower extremity edema, skin changes consistent with chronic venous stasis
NEURO: Gross non-focal
Echo 06/21/21: EF 55 to 60% with paradoxical septal wall motion consistent with known LBBB, stage II diastolic dysfunction, normal right ventricular size and function, mild MR, mild TR, no change compared to previous
Echo 10/23/21: on a technically difficult study demonstrates normal LV size and function.
Echo 04/17/2023: EF 55 to 60%, mild TR
Plan:
Presented 07/07/2023 generalized acute on chronic weakness with mild confusion and electrolyte derangement [hypokalemia- potassium 2.8, hyponatremia-sodium 131]and acute on chronic renal insufficiency [creatinine 1.9 with baseline creatinine 1.5�1.6]
following administration of subcutaneous furosemide and metolazone
Marked hypokalemia in the setting of diuretics
-Continue potassium supplementation and will hold Lasix today. She receives metolazone usually on Mondays and will reassess need July 09
-Mag 2.5. No need for additional repletion
-Will need standing potassium supplementation given the need for chronic diuretics
Acute on chronic renal insufficiency
-Creatinine was improved this morning and will continue to trend
-Suspicion for recent UTI, placed on Cipro 07/06/2023 by primary care provider; Urine culture pending. Defer treatment to hospitalist
Chronic primary respiratory alkalosis with untreated sleep apnea/obesity hypoventilation syndrome with secondary metabolic alkalosis; BMI 50
-I have strongly advised her to follow back up with pulmonary and retry noninvasive mechanical ventilation
-Continue efforts towards weight loss [unsuccessful gastric bypass surgery in 2019]
Chronic myoclonic jerks and tremor�would recommend outpatient neurologic evaluation.
Chronic heart failure preserved ejection fraction with component of lymphedema
-She is likely chronically volume overloaded with no acute decompensation at present
-proBNP 2540. Last outpatient proBNP 2009 on 06/28/2023; proBNP usually runs in 3200 to 6110 range w/ acute HF exacerbations
-Consider addition of SGLT2 inhibitor prior to discharge
-No need to repeat echocardiogram at this time
Persistent, rate controlled atrial fibrillation on chronic oral anticoagulation
-Continue Eliquis 5 mg twice daily
-Continue metoprolol succinate 50 mg nightly and diltiazem to 40 mg once daily.
PAD with history of popliteal stent; nonobstructive coronary artery disease by cardiac catheterization in 1999 with chronic left bundle branch block
-No active issues. Continue medical therapy including metoprolol, rosuvastatin
Diabetes mellitus type 2 with hyperglycemia and diabetic neuropathy
Peripheral neuropathy, likely multifactorial
-Continue efforts to towards improved diabetic control and weight loss
Chronic normocytic anemia, hemoglobin at baseline on anticoagulation.
Left upper lobe lobectomy 1999 for carcinoid; COPD with prior tobacco dependence
-Noted
Chronic low back pain/lumbar spine disease/chronic opiate dependence with constipation�noted
Original Note:
Consultation
Consultation Request
Date/Time Consultation Requested: 07/08/2023
Date/Time Consultation Performed: 07/08/2023
Requesting Provider: Dr. Hoffman
Performing Provider: Aniya Grullon PA-C for Dr. Manuela Mckeon
Reason for Consultation: Hypokalemia, shortness of breath
Medical History
-
History of Present Illness:
Abbi is a 72-year-old female with past medical history of chronic HFpEF, cirrhosis, persistent atrial fibrillation, CKD, CAD, LBBB, PAD, hypertension, hyperlipidemia, JAYSON, DM 2, and COPD who presents to ED 07/07/2023 for evaluation for
electrolyte disturbance, MARCO, altered mental status and shortness of breath.. Patient has been undergoing diuresis with furoscix patch as outpatient due concern of acute heart failure exacerbation. She received a dose in early June 2023 and was
noted to have hypokalemia which was self corrected with supplementation. She received a second dose 07/05/2023 and blood work performed on 07/07/2023 showed hypokalemia with potassium of 2.8, hyponatremia 131, BUN 51 and creatinine 1.9. During this
time patient had also been seen by primary care physician and was found to have UTI and was started on ciprofloxacin 07/06/23. Patient admitted to not feeling well and was referred to emergency department for further evaluation after abnormal labs.
Patient received both K rider, mag rider and oral potassium 80 mEq in emergency department. EKG showed atrial fibrillation with controlled ventricular response and left bundle branch block. Chest x-ray with no acute cardiopulmonary abnormality.
At time of this evaluation she continues to have foggy thinking. She also notes mid to low back pain. She denies shortness of breath or chest pain. She has chronic dyspnea on exertion.
PMH:
Chronic HFpEF
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
Persistent atrial fibrillation
Chronic Eliquis OAC
CKD 3b
H/o encephalopathy 2012
History of carcinoid
Chronic lymphedema
Mild CAD by cath 1999
LBBB
PAD s/p popliteal stent
HTN
HLD
s/p left upper lobectomy for lung cancer
JAYSON
DM2 w/ peripheral neuropathy
COPD
Obesity h/o gastric bypass 2018
Total right knee replacement December 2013 complicated by arterial injury requiring popliteal stent
Laminectomy 2014
Left hydronephrosis, chronic
Past Medical History
Past Medical History: Other (See HPI)
Past Surgical History: Other (Tubal ligation, carpal tunnel release, R TKA, lobectomy, lumbar laminectomy, R popliteal stent, gastric sleeve, left TKA, cataract removal)
Social History
Tobacco: Former Smoker
Alcohol: Occasional
Drug: None
Living: Other (Independent skilled nursing apartment)
Family History
Family History: CAD, Cancer, Diabetes and Hypertension
Allergies / Home Medications
Allergy/AdvReac Type Severity Reaction Status Date / Time
heparin Allergy Rash Verified 07/07/23 15:31
Penicillins Allergy Hives Verified 07/07/23 15:31
(tolerated
cephalosporins
Apr 2016)
pregabalin [From Lyrica] Allergy Hives Verified 07/07/23 15:31
�Medication �Instructions �Recorded �Confirmed �Type
gabapentin 600 mg tablet 1,200 mg PO BID Neurological 02/22/22 07/08/23 History
Condition
pantoprazole 40 mg tablet,delayed 40 mg PO DAILY Gastrointestinal 02/22/22 07/08/23 History
release issue
rosuvastatin 5 mg tablet 5 mg PO DAILY High cholesterol 02/22/22 07/08/23 History
cyanocobalamin (vitamin B-12) 1,000 mcg IM QMONTH Supplement 03/27/22 07/08/23 History
1,000 mcg/mL injection solution
venlafaxine 75 mg capsule,extended 75 mg PO DAILY Depression 03/27/22 07/08/23 History
release 24 hr
sennosides 8.6 mg-docusate sodium 2 tab-cap PO HS #180 tab-caps 04/07/22 07/08/23 Rx
50 mg tablet
insulin degludec 100 unit/mL 24 unit (0.24 mL) SC DAILY 06/23/22 07/08/23 Rx
subcutaneous solution (Tresiba Diabetes #0 mL
U-100 Insulin)
bisacodyl 5 mg tablet 5 mg PO HS Constipation 11/29/22 07/08/23 History
oxycodone 10 mg tablet 10 mg PO Q6H Left shoulder pain 11/29/22 07/08/23 History
apixaban 5 mg tablet (Eliquis) 5 mg PO BID #60 tabs 04/19/23 07/08/23 Rx
diltiazem HCl 240 mg 240 mg PO DAILY Blood pressure #30 04/19/23 07/08/23 Rx
tablet,extended release 24 hr tabs
furosemide 40 mg tablet (Lasix) 40 mg PO BID #60 tabs 04/19/23 07/08/23 Rx
potassium chloride 20 mEq 20 meq PO DAILY Electrolyte 04/19/23 07/08/23 Rx
tablet,extended Repletion #30 tabs
release(part/cryst) (Klor-Con M)
spironolactone 25 mg tablet 12.5 mg (1/2 x 25 mg) PO DAILY 04/19/23 07/08/23 Rx
Fluid Retention/Swelling #30 tabs
metolazone 2.5 mg tablet 2.5 mg PO MO 07/08/23 07/08/23 History
metoprolol succinate 50 mg 50 mg PO QPM Blood pressure 07/08/23 07/08/23 History
tablet,extended release 24 hr
solifenacin 5 mg tablet (Vesicare) 5 mg PO DAILY 07/08/23 07/08/23 History
Review of Systems
-
History Source: Patient
All other systems: Negative unless noted
Physical Exam
Vital Signs
Temp Pulse Resp BP Pulse Ox
97.6 F 72 16 139/68 96
07/08/23 03:04 07/08/23 03:04 07/08/23 03:04 07/08/23 03:04 07/08/23 03:04
GEN: No distress, awake, Ox3, lying in bed
HEENT: supple, anicteric, mmm
LUNGS: CTA, no wheezes/rales
CV: Irregularly irregular, S1/S2, no murmur, rub or gallops
ABD: soft, BS+, NT/ND
EXT: Trace lower extremity edema, skin changes consistent with chronic venous stasis
NEURO: Gross non-focal
SKIN: No rash, warm, dry, pink
Lab Results
07/08/23 06:48
07/08/23 06:48
Impression / Plan
-
PCP: Joanie Jane PA-C
Birth Attendant: Dr. Lindo
Impression:
Presented 07/07/2023 generalized weakness, mild confusion, shortness of breath
Electrolyte derangement with hypokalemia
MARCO on CKD
Chronic HFpEF
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
Persistent atrial fibrillation
Chronic Eliquis OAC
CKD 3b
H/o encephalopathy 2012
History of carcinoid
Chronic lymphedema
Mild CAD by cath 1999
LBBB
PAD s/p popliteal stent
HTN
HLD
s/p left upper lobectomy for lung cancer
JAYSON
DM2 w/ peripheral neuropathy
COPD
Obesity h/o gastric bypass 2018
Total right knee replacement December 2013 complicated by arterial injury requiring popliteal stent
Laminectomy 2014
Left hydronephrosis, chronic
Echo 06/21/21: EF 55 to 60% with paradoxical septal wall motion consistent with known LBBB, stage II diastolic dysfunction, normal right ventricular size and function, mild MR, mild TR, no change compared to previous
Echo 10/23/21: on a technically difficult study demonstrates normal LV size and function.
Echo 04/17/2023: EF 55 to 60%, mild TR
Presented 07/07/2023 generalized weakness, mild confusion, shortness of breath, electrolyte derangement and MARCO
Electrolyte derangement with hypokalemia
-Patient was provided K rider as well as 80 meq of oral potassium 07/07/2023 in emergency department for K+ 2.8-2.9
-Hypokalemia likely secondary to outpatient dosing of metolazone as well as subcutaneous furoscix dosing 07/05/23
-Still hypokalemic, K +3.0. Continue to replete with both oral potassium and K rider
-Mag 2.5. No need for additional repletion
Chronic heart failure with preserved ejection fraction
-Volume status somewhat difficult to assess but does not appear to be acutely volume overloaded to me
-Patient has lost 3 to 5 pounds as outpatient this week after furoscix. Baseline rate around 270 pounds
-Check proBNP, last outpatient proBNP 2009 on 06/28/2023; proBNP usually runs in 3200 to 6110 range w/ acute HF exacerbations
-Would hold on diuresis given hypokalemia and MARCO
-Creatinine on outpatient lab 07/07/2023 1.9. Now 1.7. Baseline creatinine around 1.4-1.6
-Outpatient regimen Lasix 80 mg twice a day as well as Zaroxolyn 2.5 mg every Monday. She takes 20 meq K+ daily
Permanent atrial fibrillation
-Patient rate controlled on diltiazem 240 mg daily and metoprolol 50 mg daily
-Continue chronic anticoagulation with Eliquis
Suspicion for recent UTI, placed on Cipro 07/06/2023 by primary care provider.
-Urine culture pending
-Defer treatment to hospitalist
HPI:
Abbi is a 72-year-old female with past medical history of chronic HFpEF, cirrhosis, persistent atrial fibrillation, CKD, CAD, LBBB, PAD, hypertension, hyperlipidemia, JAYSON, DM 2, and COPD who presents to ED 07/07/2023 for evaluation for
electrolyte disturbance, MARCO, altered mental status and shortness of breath.. Patient has been undergoing diuresis with furoscix patch as outpatient due concern of acute heart failure exacerbation. She received a dose in early June 2023 and was
noted to have hypokalemia which was self corrected with supplementation. She received a second dose 07/05/2023 and blood work performed on 07/07/2023 showed hypokalemia with potassium of 2.8, hyponatremia 131, BUN 51 and creatinine 1.9. During this
time patient had also been seen by primary care physician and was found to have UTI and was started on ciprofloxacin 07/06/23. Patient admitted to not feeling well and was referred to emergency department for further evaluation after abnormal labs.
Patient received both K rider, mag rider and oral potassium 80 mEq in emergency department. EKG showed atrial fibrillation with controlled ventricular response and left bundle branch block. Chest x-ray with no acute cardiopulmonary abnormality.
At time of this evaluation she continues to have foggy thinking. She also notes mid to low back pain. She denies shortness of breath or chest pain. She has chronic dyspnea on exertion.
[2023-07-08 08:27] LABS: Glucose - Point of Care 167 mg/dl (70-99)
[2023-07-08] MEDS: CARDIZEM CD 240 MG PO (09:39)
[2023-07-08] MEDS: ELIQUIS 5 MG PO ×2 (09:39→20:19)
[2023-07-08] MEDS: PROTONIX 40 MG PO (09:39)
[2023-07-08] MEDS: NEURONTIN 1200 MG PO ×2 (09:39→20:19)
[2023-07-08] MEDS: EFFEXOR XR 75 MG PO (09:40)
[2023-07-08] MEDS: CRESTOR 5 MG PO (09:40)
[2023-07-08] MEDS: KCL 20 MEQ PO ×3 (09:40→22:27)
[2023-07-08] MEDS: ALDACTONE 25 MG PO (09:40)
[2023-07-08] MEDS: LANTUS 0.200000000000000011 UNITS SC (09:52)
[2023-07-08 10:34] LABS: Glycohemoglobin (HgbA1c) 6.6 % (4.0-5.6)
[2023-07-08 11:03] LABS: NT-proBNP 2540 pg/ml
[2023-07-08] MEDS: NOVOLOG FLEXPEN-LOW RESISTANCE 1 UNITS SC (11:37)
--- NOTE | 2023-07-08 12:38 | W.PN.HOSP.TC ---
Today's Communication/Plan
-
Increase KCl to 3 times daily
Fluid restriction
Assessment / Plan
Assessment / Plan
Gen-AAOx3, NAD, morbid obesity
HEENT-NC, AT, anicteric, clear oral mm
Neck-supple
CV-reg, no M, +S1/S2
Lungs-clear B/L
Abd-soft, NT, ND
Ext-bilateral lower extremity edema
Musculoskeletal-no cyanosis, clubbing
Skin-warm and dry
Neuro-grossly non-focal
Psych-calm, cooperative
Severe hypokalemia -likely due to subcutaneous furosemide administration at home. Was on potassium chloride 20 meq once daily prior to admission. Potassium 3.0 today. Magnesium 2.5 yesterday. Will increase potassium to 20 mill equivalents 3
times daily. Monitor labs closely. Spironolactone continued.
Subacute heart failure with preserved EF exacerbation -diuretics currently on hold due to MARCO and hypokalemia. Cardiology consulted. BNP 2540. She was discharged in March with a weight of 122 kg. Weight yesterday was 125.9 kg. 124.3 kg today.
Hyponatremia -likely due to volume overload. Fluid restriction ordered.
Persistent atrial fibrillation -continue Eliquis.
CAD -stable.
MARCO on CKD 3b -baseline creatinine appears to be between 1.4 and 1.6. Admitted with creatinine of 1.9, BUN 51. Creatinine 1.7 today.
DM2 with hyperglycemia -hemoglobin A1c 6.6%. Glucose 157 this morning.
Chronic pain syndrome/chronic opiate dependence
Chronic peripheral neuropathy
Chronic constipation
Chronic lower extremity lymphedema
COPD without exacerbation
Chronic normocytic anemia -hemoglobin at baseline.
Morbid obesity due to excess calories -hx of gastric bypass 2018.
Full code
Anticipated Discharge: > 48 hours
Subjective/Interval History
-
Date of Service: July 08, 2023
Patient seen and examined. Complaining of fatigue, sleep disruption.
Objective Data
-
Labs:
Laboratory Results
07/08/23
06:48
WBC 4.8
Hgb 10.2 L
Hct 31.0 L
Plt Count 152
Sodium 134 L
Potassium 3.0 L
Chloride 91 L
Carbon Dioxide 35 H
BUN 50 H
Creatinine 1.7 H
Glucose 157 H
Calcium 8.6
Vital Signs:
Vital Signs
Temp Pulse Resp BP Pulse Ox
97.6 F 73 16 109/67 96
07/08/23 11:03 07/08/23 11:03 07/08/23 11:03 07/08/23 11:03 07/08/23 11:03
I&O
07/07/23 07/08/23 07/09/23
06:59 06:59 06:59
Intake Total 380 / 380
Output Total 250 / 250
Balance 130 / 130
Review of Systems
-
History Source: Patient
All other systems: Reviewed and negative
[2023-07-08 13:10] LABS: Glucose - Point of Care 230 mg/dl (70-99)
[2023-07-08] MEDS: NOVOLOG FLEXPEN-LOW RESISTANCE 2 UNITS SC ×2 (13:12→17:14)
[2023-07-08 17:07] LABS: Potassium 3.3 mmol/L (3.5-5.1)
[2023-07-08 17:15] LABS: Glucose - Point of Care 220 mg/dl (70-99)
[2023-07-08] MEDS: TOPROL XL 50 MG PO (17:25)
[2023-07-08 21:45] LABS: Glucose - Point of Care 172 mg/dl (70-99)
[2023-07-08] MEDS: SENOKOT-S 2 TABLET PO (22:27)
[2023-07-09 03:40] VITALS: BP 147/104
[2023-07-09 05:08] VITALS: BMI 49.8
[2023-07-09 07:00] VITALS: BP 116/60
[2023-07-09 07:38] LABS: Blood Urea Nitrogen 42 mg/dl (7-17); Carbon Dioxide 35 mmol/L (22-30); Chloride 93 mmol/L (98-107); Estimated Creatinine Clearance 40 ml/min; Glucose 153 mg/dl (70-99); Potassium 3.8 mmol/L (3.5-5.1); Sodium 136 mmol/L (135-145); eGFR 34.27
[2023-07-09 08:08] LABS: Glucose - Point of Care 158 mg/dl (70-99)
[2023-07-09] MEDS: NEURONTIN 1200 MG PO ×2 (09:16→20:32)
[2023-07-09] MEDS: NOVOLOG FLEXPEN-LOW RESISTANCE 1 UNITS SC ×2 (09:16→17:12)
[2023-07-09] MEDS: ALDACTONE 25 MG PO (09:17)
[2023-07-09] MEDS: CARDIZEM CD 240 MG PO (09:17)
[2023-07-09] MEDS: CRESTOR 5 MG PO (09:17)
[2023-07-09] MEDS: EFFEXOR XR 75 MG PO (09:17)
[2023-07-09] MEDS: PROTONIX 40 MG PO (09:17)
[2023-07-09] MEDS: LANTUS 0.200000000000000011 UNITS SC (09:18)
[2023-07-09] MEDS: ELIQUIS 5 MG PO ×2 (09:18→20:34)
[2023-07-09] MEDS: LASIX 40 MG PO ×2 (09:18→16:02)
[2023-07-09] MEDS: KCL 20 MEQ PO ×3 (09:18→22:36)
[2023-07-09] MEDS: ROXICODONE 10 MG PO ×3 (10:00→22:35)
--- NOTE | 2023-07-09 10:05 | W.PN.HOSP.TC ---
Today's Communication/Plan
-
Bowel regimen
Assessment / Plan
Assessment / Plan
Gen-AAOx3, NAD, morbid obesity
HEENT-NC, AT, anicteric, clear oral mm
Neck-supple
CV-reg, no M, +S1/S2
Lungs-clear B/L
Abd-soft, NT, ND
Ext-bilateral lower extremity edema
Musculoskeletal-no cyanosis, clubbing
Skin-warm and dry
Neuro-grossly non-focal
Psych-calm, cooperative
Severe hypokalemia -likely due to subcutaneous furosemide administration at home. Was on potassium chloride 20 meq once daily prior to admission. Potassium 3.8 today. Continue KCl 3 times daily. Monitor labs closely. Spironolactone continued.
Subacute heart failure with preserved EF exacerbation -oral Lasix resumed today by cardiology. BNP 2540. She was discharged in March with a weight of 122 kg. Weight coming down, 123.4 kg today.
Hyponatremia -likely due to volume overload. Fluid restriction ordered. Sodium improved.
Constipation -she prefers Colace and Senokot, will order twice daily. She wants to stop the MiraLAX.
Persistent atrial fibrillation -continue Eliquis.
CAD -stable.
MARCO on CKD 3b -baseline creatinine appears to be between 1.4 and 1.6. Admitted with creatinine of 1.9, BUN 51. Creatinine 1.6 today.
DM2 with hyperglycemia -hemoglobin A1c 6.6%. Glucose 153 this morning.
Chronic pain syndrome/chronic opiate dependence
Chronic peripheral neuropathy
Chronic constipation
Chronic lower extremity lymphedema
COPD without exacerbation
Chronic normocytic anemia -hemoglobin at baseline.
Morbid obesity due to excess calories -hx of gastric bypass 2018.
Full code
Dispo -can discharge when cleared by cardiology.
Anticipated Discharge: Within 24 hours
Subjective/Interval History
-
Date of Service: July 09, 2023
Patient seen and examined. Complaining of constipation.
Objective Data
-
Labs:
Laboratory Results
07/09/23
06:35
Sodium 136
Potassium 3.8
Chloride 93 L
Carbon Dioxide 35 H
BUN 42 H
Creatinine 1.6 H
Glucose 153 H
Calcium 9.0
Vital Signs:
Vital Signs
Temp Pulse Resp BP Pulse Ox
97.6 F 81 18 116/60 95
07/09/23 07:00 07/09/23 09:17 07/09/23 07:00 07/09/23 09:17 07/09/23 07:00
I&O
07/08/23 07/09/23 07/10/23
06:59 06:59 06:59
Intake Total 380 / 380 660 / 660
Output Total 250 / 250
Balance 130 / 130 660 / 660
Review of Systems
-
History Source: Patient
All other systems: Reviewed and negative
[2023-07-09 12:39] LABS: Glucose - Point of Care 238 mg/dl (70-99)
[2023-07-09] MEDS: NOVOLOG FLEXPEN-LOW RESISTANCE 2 UNITS SC (13:25)
--- NOTE | 2023-07-09 14:30 | CM ---
Addendum entered by Mindi Cassidy RN 07/09/23 16:04:
IMM signed and placed on the chart.
Original Note:
Reviewed the chart notes and spoke with the patient at the bedside. The patient resides alone in a second floor apartment with elevator access. The patient uses a rolling walker and wheelchair. The patient is current with VN services and has
been to [facility]. The patient confirmed her pharmacy of choice is [facility]. CM continues to be available to patient/family and is monitoring medical plan for needs at discharge.
Plan: Discharge to home with resumption of VN services.
[2023-07-09 15:00] VITALS: BP 122/63
--- NOTE | 2023-07-09 16:31 | W.PN.CARDCBS ---
Today's Communication / Plan
-
Resume oral Lasix and monitor electrolytes
Anticipate discharge home tomorrow
Impression / Plan
-
PCP: Joanie Jane PA-C
Paint Technician: Dr. Lindo
Impression:
Presented 07/07/2023 generalized weakness, mild confusion, shortness of breath
Electrolyte derangement with hypokalemia
MARCO on CKD
Chronic HFpEF
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
Persistent atrial fibrillation
Chronic Eliquis OAC
CKD 3b
H/o encephalopathy 2012
History of carcinoid
Chronic lymphedema
Mild CAD by cath 1999
LBBB
PAD s/p popliteal stent
HTN
HLD
s/p left upper lobectomy for lung cancer
JAYSON
DM2 w/ peripheral neuropathy
COPD
Obesity h/o gastric bypass 2018
Total right knee replacement December 2013 complicated by arterial injury requiring popliteal stent
Laminectomy 2014
Left hydronephrosis, chronic
Echo 06/21/21: EF 55 to 60% with paradoxical septal wall motion consistent with known LBBB, stage II diastolic dysfunction, normal right ventricular size and function, mild MR, mild TR, no change compared to previous
Echo 10/23/21: on a technically difficult study demonstrates normal LV size and function.
Echo 04/17/2023: EF 55 to 60%, mild TR
Plan:
Presented 07/07/2023 generalized acute on chronic weakness with mild confusion and electrolyte derangement [hypokalemia- potassium 2.8, hyponatremia-sodium 131]and acute on chronic renal insufficiency [creatinine 1.9 with baseline creatinine 1.5�1.6]
following administration of subcutaneous furosemide and metolazone
Marked hypokalemia in the setting of diuretics
-Improved with potassium ablation and temporary discontinuation of diuretics
-Potassium today 3.8 with magnesium 3
-Monitor basic metabolic profile with resumption of Lasix.
Acute on chronic renal insufficiency
-Creatinine is likely near baseline at 1.6.
-Suspicion for recent UTI, placed on Cipro 07/06/2023 by primary care provider; Urine culture no growth
Untreated sleep apnea/obesity hypoventilation syndrome; BMI 50
-I have strongly advised her to follow back up with pulmonary and retry noninvasive mechanical ventilation
-Continue efforts towards weight loss [unsuccessful gastric bypass surgery in 2019]
Chronic myoclonic jerks and tremor�would recommend outpatient neurologic evaluation.
Chronic heart failure preserved ejection fraction with component of lymphedema
-She is likely chronically volume overloaded with no acute decompensation at present
-proBNP 2540. Last outpatient proBNP 2009 on 06/28/2023; proBNP usually runs in 3200 to 6110 range w/ acute HF exacerbations
-Will resume Lasix 40 mg twice daily. Hold on Monday metolazone at this time.
-Consider addition of SGLT2 inhibitor prior to discharge
-No need to repeat echocardiogram at this time
Persistent, rate controlled atrial fibrillation on chronic oral anticoagulation
-Continue Eliquis 5 mg twice daily
-Continue metoprolol succinate 50 mg nightly and diltiazem CD 240 mg once daily.
PAD with history of popliteal stent; nonobstructive coronary artery disease by cardiac catheterization in 1999 with chronic left bundle branch block
-No active issues. Continue medical therapy including metoprolol, rosuvastatin
Diabetes mellitus type 2 with hyperglycemia and diabetic neuropathy
Peripheral neuropathy, likely multifactorial
-Continue efforts to towards improved diabetic control and weight loss
Chronic normocytic anemia, hemoglobin at baseline on anticoagulation.
Left upper lobe lobectomy 1999 for carcinoid; COPD with prior tobacco dependence
-Noted
Chronic low back pain/lumbar spine disease/chronic opiate dependence with constipation�noted
Anticipate discharge home tomorrow
HPI:
Abbi is a 72-year-old female with past medical history of chronic HFpEF, cirrhosis, persistent atrial fibrillation, CKD, CAD, LBBB, PAD, hypertension, hyperlipidemia, JAYSON, DM 2, and COPD who presents to ED 07/07/2023 for evaluation for
electrolyte disturbance, MARCO, altered mental status and shortness of breath.. Patient has been undergoing diuresis with furoscix patch as outpatient due concern of acute heart failure exacerbation. She received a dose in early June 2023 and was
noted to have hypokalemia which was self corrected with supplementation. She received a second dose 07/05/2023 and blood work performed on 07/07/2023 showed hypokalemia with potassium of 2.8, hyponatremia 131, BUN 51 and creatinine 1.9. During this
time patient had also been seen by primary care physician and was found to have UTI and was started on ciprofloxacin 07/06/23. Patient admitted to not feeling well and was referred to emergency department for further evaluation after abnormal labs.
Patient received both K rider, mag rider and oral potassium 80 mEq in emergency department. EKG showed atrial fibrillation with controlled ventricular response and left bundle branch block. Chest x-ray with no acute cardiopulmonary abnormality.
At time of this evaluation she continues to have foggy thinking. She also notes mid to low back pain. She denies shortness of breath or chest pain. She has chronic dyspnea on exertion.
Progress Note - Paint Technician
Subjective
Date of Service: July 09, 2023
Patient seen and examined. Out of bed to chair with improved admitting symptoms
Objective
Labs:
07/08/23 06:48
07/09/23 06:35
Labs
Hgb 10.2 g/dL (12.0-16.0) L 07/08/23 06:48
Hct 31.0 % (37.0-47.0) L 07/08/23 06:48
Plt Count 152 10^3/uL (130-400) 07/08/23 06:48
Sodium 136 mmol/L (135-145) 07/09/23 06:35
Potassium 3.8 mmol/L (3.5-5.1) 07/09/23 06:35
BUN 42 mg/dl (7-17) H 07/09/23 06:35
Creatinine 1.6 mg/dL (0.6-1.0) H 07/09/23 06:35
Glucose 153 mg/dl (70-99) H 07/09/23 06:35
Vital Signs and I&O:
Vital Signs
Temp Pulse Resp BP Pulse Ox
97.4 F 75 18 122/63 100
07/09/23 15:00 07/09/23 15:00 07/09/23 15:00 07/09/23 15:00 07/09/23 15:00
Vital Signs
Temp Pulse Resp BP Pulse Ox
97.4 F 75 18 122/63 100
07/09/23 15:00 07/09/23 15:00 07/09/23 15:00 07/09/23 15:00 07/09/23 15:00
Intake & Output
07/07/23 07/08/23 07/09/23 07/10/23
06:59 06:59 06:59 06:59
Intake Total 380 / 380 660 / 660
Output Total 250 / 250
Balance 130 / 130 660 / 660
Physical Exam
Physical Exam
GEN: Sitting out of bed to chair. Morbidly obese
HEENT: mmm
LUNGS: CTA, no wheezes/rales
CV: Irregularly irregular, S1/S2, distant heart sound
ABD: Morbidly obese, soft, nontender. Positive bowel sounds
EXT: Trace lower extremity edema, skin changes consistent with chronic venous stasis
NEURO: Gross non-focal
[2023-07-09 17:01] LABS: Glucose - Point of Care 170 mg/dl (70-99)
[2023-07-09] MEDS: TOPROL XL 50 MG PO (17:12)
[2023-07-09 19:40] VITALS: BP 94/52
[2023-07-09 20:18] VITALS: BP 125/57
[2023-07-09] MEDS: SENOKOT-S 2 TABLET PO (20:33)
[2023-07-09 21:26] LABS: Glucose - Point of Care 160 mg/dl (70-99)
[2023-07-09 23:40] VITALS: BP 131/69
[2023-07-10 03:20] VITALS: BP 139/70
[2023-07-10] MEDS: ROXICODONE 10 MG PO ×3 (05:15→17:18)
[2023-07-10 06:00] VITALS: BMI 49.5
[2023-07-10 07:43] LABS: Glucose - Point of Care 142 mg/dl (70-99)
[2023-07-10 08:05] VITALS: BP 101/52
[2023-07-10] MEDS: NOVOLOG FLEXPEN-LOW RESISTANCE SC (08:13)
--- NOTE | 2023-07-10 08:28 | W.PN.HOSP.TC ---
Today's Communication/Plan
-
Neurology eval. Decrease gabapentin. Potassium replacement. Repeat BMP. Discharge planning in progress
Assessment / Plan
Assessment / Plan
Gen-AAOx3, NAD, morbid obesity
HEENT-NC, AT, anicteric, clear oral mm
Neck-supple
CV-reg, no M, +S1/S2
Lungs-clear B/L
Abd-soft, NT, ND
Ext-bilateral lower extremity edema
Musculoskeletal-no cyanosis, clubbing
Skin-warm and dry
Neuro-grossly non-focal, asterixis present, generalized weakness but no focal weakness.? Dysarthria but most likely suspected related to dry mouth.
Psych-calm, cooperative
A/P:
Toxic metabolic encephalopathy-likely related to MARCO on CKD, gabapentin, hypokalemia, some degree of anxiety. Patient very concerned and asked for neurology consult in light of her symptoms today and told me cardio has suggested the same to her
Neurology evaluation(discussed with neuro)--> appreciated input and will decrease gabapentin. Planning on discharge today-> case management for discharge disposition since patient expressing some concerns with transportation and some social
circumstances.
Severe hypokalemia -likely due to subcutaneous furosemide administration at home. Was on potassium chloride 20 meq once daily prior to admission and will plan to discharge rather on 20 meq twice a day. Potassium 3.4 today. Continue KCl 3 times
daily. Monitor labs closely. Spironolactone continued. Extra potassium 40 meq today and will recheck potassium this afternoon.
Subacute heart failure with preserved EF exacerbation -oral Lasix by cardiology (holding parameters with hypokalemia). Discontinue metolazone per cardiology. Continue spironolactone. Cardiology cleared for discharge today.
Hyponatremia -likely due to volume overload. Fluid restriction ordered. Sodium improved.
Constipation -she prefers Colace and Senokot, will order twice daily. She wants to stop the MiraLAX.
Persistent atrial fibrillation -continue Eliquis.
CAD -stable.
MARCO on CKD 3b -baseline creatinine appears to be between 1.4 and 1.6. Admitted with creatinine of 1.9, BUN 51. Creatinine 1.6 today.
DM2 with hyperglycemia -hemoglobin A1c 6.6%. Glucose 153 this morning.
Chronic pain syndrome/chronic opiate dependence
Chronic peripheral neuropathy
Chronic constipation
Chronic lower extremity lymphedema
COPD without exacerbation
Chronic normocytic anemia -hemoglobin at baseline.
Morbid obesity due to excess calories -hx of gastric bypass 2018.
Full code
Anticipated Discharge: Today
Subjective/Interval History
-
Date of Service: July 10, 2023
Patient denies any chest pain or shortness of breath. She does complain of jerking movement of her arms, brain fogginess, and speech difficulties.
Objective Data
-
Labs:
Laboratory Results
07/10/23
07:31
Sodium Pending
Potassium Pending
Chloride Pending
Carbon Dioxide Pending
BUN Pending
Creatinine Pending
Glucose Pending
Calcium Pending
Vital Signs:
Vital Signs
Temp Pulse Resp BP Pulse Ox
98.3 F 81 17 101/52 97
07/10/23 08:05 07/10/23 08:05 07/10/23 08:05 07/10/23 08:05 07/10/23 08:05
I&O
07/09/23 07/10/23 07/11/23
06:59 06:59 06:59
Intake Total 660 / 660 990 / 990
Balance 660 / 660 990 / 990
[2023-07-10 08:50] LABS: Blood Urea Nitrogen 40 mg/dl (7-17); Calcium 8.8 mg/dl (8.4-10.2); Carbon Dioxide 35 mmol/L (22-30); Chloride 93 mmol/L (98-107); Estimated Creatinine Clearance 43 ml/min; Glucose 134 mg/dl (70-99); Magnesium 2.6 mg/dl (1.6-2.3); Potassium 3.4 mmol/L (3.5-5.1); Sodium 136 mmol/L (135-145); eGFR 37.03
[2023-07-10] MEDS: CARDIZEM CD 240 MG PO (08:52)
[2023-07-10] MEDS: NEURONTIN 1200 MG PO (08:53)
[2023-07-10] MEDS: ELIQUIS 5 MG PO (08:53)
[2023-07-10] MEDS: EFFEXOR XR 75 MG PO (08:53)
[2023-07-10] MEDS: CRESTOR 5 MG PO (08:53)
[2023-07-10] MEDS: SENOKOT-S 2 TABLET PO (08:53)
[2023-07-10] MEDS: PROTONIX 40 MG PO (08:53)
[2023-07-10] MEDS: LASIX PO (08:57)
[2023-07-10] MEDS: ALDACTONE 25 MG PO (08:58)
[2023-07-10] MEDS: KCL 20 MEQ PO (08:58)
[2023-07-10] MEDS: LANTUS 0.200000000000000011 UNITS SC (08:59)
--- NOTE | 2023-07-10 09:20 | W.PN.CARDCBS ---
Addendum entered and electronically signed by Harry Guadarrama MD 07/10/23 10:01:
She feels well, and is anxious to go home. She has a history of UTIs
allergies: Heparin, penicillin, Lyrica
Home medications: Apixaban 5 twice daily, B12, diltiazem ER 240 mg a day, furosemide 40 mg twice daily, gabapentin 1200 twice daily, metolazone 2.5 mg on Mondays, metoprolol ER 50 mg every afternoon
Pantoprazole, potassium 20 mill equivalents daily, rosuvastatin 5 mg a day, Vesicare, venlafaxine, spironolactone 12.5 mg daily
Current meds: Apixaban 5 mg twice daily, diltiazem ER 240 mg a day, gabapentin, metoprolol ER 50 mg daily, pantoprazole 40 mg a day, rosuvastatin 5 mg daily, spironolactone 25 mg a day, Effexor 75 mg a day, Lantus 20 units at bedtime, potassium 20 3
times daily, furosemide 40 twice daily, senna
PMH/PSH/FH//SH: Reviewed
ROS: Negative except as above
101/52, pulse 81, respiratory 17, weight is 122.6 kg, was 125.9 kg on admission and 122.7 kg on April 19 no acute distress sitting in chair, head neck exam unremarkable, lungs relatively clear,
Irregular rate and rhythm without obvious murmurs or gallops JVD hard to assess but probably okay, 1+ edema, massive obesity of legs, abdomen benign neuro nonfocal
Potassium 3.4, BUN/creatinine 40 and 1.5, follow-up potassium pending
EKG from the is A-fib with left bundle
MARCO on CKD
Chronic HFpEF
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
Persistent atrial fibrillation
Chronic Eliquis OAC
CKD 3b
H/o encephalopathy 2012
History of carcinoid
Chronic lymphedema
Mild CAD by cath 1999
LBBB
PAD s/p popliteal stent
HTN
HLD
s/p left upper lobectomy for lung cancer
JAYSON
DM2 w/ peripheral neuropathy
COPD
Obesity h/o gastric bypass 2018
Total right knee replacement December 2013 complicated by arterial injury requiring popliteal stent
Laminectomy 2014
Left hydronephrosis, chronic
Echo 06/21/21: EF 55 to 60% with paradoxical septal wall motion consistent with known LBBB, stage II diastolic dysfunction, normal right ventricular size and function, mild MR, mild TR, no change compared to previous
Echo 10/23/21: on a technically difficult study demonstrates normal LV size and function.
Echo 04/17/2023: EF 55 to 60%, mild TR
Plan:
She seems improved overall. Volume status is better. Would not check to discharge later today.
Would try to de-escalate diltiazem ER to 240 mg once once daily given HFpEF and increase metoprolol ER 200 mg daily.
Will check EKG as outpatient to ascertain that rate is controlled.
Would be willing to restart spironolactone 12.5 a day with follow-up BMP.
SGLT2 antagonist probably best avoided given history of UTIs
Recommended cardiac medications at discharge:
Apixaban 5 mg p.o. twice daily
Diltiazem ER 240 mg daily (admission dose, 240 mg twice daily in hospital)
Metoprolol ER 100 mg a day
Furosemide 60 mg p.o. twice daily (higher dose)
Potassium 20 mEq twice daily
5 mg a day
Rosuvastatin
Spironolactone 12.5 mg a day
Stop metolazone for now
Check EKG in 5 to 7 days
Check BMP 1 week
We will arrange for cardiology follow-up
Original Note:
Today's Communication / Plan
-
Hold Metolazone dosing today
Replete K+ getting an additional 40 mEq this morning on top of 20 mEq 3 times daily
Repeat potassium later today
Impression / Plan
-
PCP: Joanie Jane PA-C
Sack Repairer: Dr. Lindo
Impression:
Presented 07/07/2023 generalized weakness, mild confusion, shortness of breath
Electrolyte derangement with hypokalemia
MARCO on CKD
Chronic HFpEF
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
Persistent atrial fibrillation
Chronic Eliquis OAC
CKD 3b
H/o encephalopathy 2012
History of carcinoid
Chronic lymphedema
Mild CAD by cath 1999
LBBB
PAD s/p popliteal stent
HTN
HLD
s/p left upper lobectomy for lung cancer
JAYSON
DM2 w/ peripheral neuropathy
COPD
Obesity h/o gastric bypass 2018
Total right knee replacement December 2013 complicated by arterial injury requiring popliteal stent
Laminectomy 2014
Left hydronephrosis, chronic
Echo 06/21/21: EF 55 to 60% with paradoxical septal wall motion consistent with known LBBB, stage II diastolic dysfunction, normal right ventricular size and function, mild MR, mild TR, no change compared to previous
Echo 10/23/21: on a technically difficult study demonstrates normal LV size and function.
Echo 04/17/2023: EF 55 to 60%, mild TR
Plan:
Presented 07/07/2023 generalized acute on chronic weakness with mild confusion and electrolyte derangement [hypokalemia- potassium 2.8, hyponatremia-sodium 131]and acute on chronic renal insufficiency [creatinine 1.9 with baseline creatinine 1.5�1.6]
following administration of subcutaneous furosemide and metolazone
Marked hypokalemia in the setting of diuretics
-Improved with potassium repletion and temporary discontinuation of diuretics
-Restarted Lasix 40 mg BID 07/09/23;
-Potassium today 3.4 with magnesium 2.6; getting 40 meq on top of 20 meq TID.
-Would hold Zaroxolyn today (takes 2.5 mg every Monday). If K+ better tomorrow can give 07/11/23
-Monitor basic metabolic profile with resumption of Lasix.
-Will need BMPs followed as outpatient
Acute on chronic renal insufficiency
-Creatinine is back to baseline at 1.5 .
-Suspicion for recent UTI, placed on Cipro 07/06/2023 by primary care provider; Urine culture no growth final
Untreated sleep apnea/obesity hypoventilation syndrome; BMI 50
-I have strongly advised her to follow back up with pulmonary and retry noninvasive mechanical ventilation
-Continue efforts towards weight loss [unsuccessful gastric bypass surgery in 2019]
Chronic myoclonic jerks and tremor, these appear new�would recommend outpatient neurologic evaluation.
Chronic heart failure preserved ejection fraction with component of lymphedema
-She is likely chronically volume overloaded with no acute decompensation at present
-proBNP 2540. Last outpatient proBNP 2009 on 06/28/2023; proBNP usually runs in 3200 to 6110 range w/ acute HF exacerbations
-Resumed Lasix 40 mg twice daily 07/09/23. Hold on Monday metolazone at this time. If K+ better tomorrow can give 07/11/23
-Consider addition of SGLT2 inhibitor Although patient does have history of UTI and probably not ideal candidate
-No need to repeat echocardiogram at this time
Persistent, rate controlled atrial fibrillation on chronic oral anticoagulation
-Continue Eliquis 5 mg twice daily
-Continue metoprolol succinate 50 mg nightly and diltiazem CD 240 mg once daily.
PAD with history of popliteal stent; nonobstructive coronary artery disease by cardiac catheterization in 1999 with chronic left bundle branch block
-No active issues. Continue medical therapy including metoprolol, rosuvastatin
Diabetes mellitus type 2 with hyperglycemia and diabetic neuropathy
Peripheral neuropathy, likely multifactorial
-Continue efforts to towards improved diabetic control and weight loss
Chronic normocytic anemia, hemoglobin at baseline on anticoagulation.
Left upper lobe lobectomy 1999 for carcinoid; COPD with prior tobacco dependence
-Noted
Chronic low back pain/lumbar spine disease/chronic opiate dependence with constipation�noted
Anticipate discharge home tomorrow
HPI:
Abbi is a 72-year-old female with past medical history of chronic HFpEF, cirrhosis, persistent atrial fibrillation, CKD, CAD, LBBB, PAD, hypertension, hyperlipidemia, JAYSON, DM 2, and COPD who presents to ED 07/07/2023 for evaluation for
electrolyte disturbance, MARCO, altered mental status and shortness of breath.. Patient has been undergoing diuresis with furoscix patch as outpatient due concern of acute heart failure exacerbation. She received a dose in early June 2023 and was
noted to have hypokalemia which was self corrected with supplementation. She received a second dose 07/05/2023 and blood work performed on 07/07/2023 showed hypokalemia with potassium of 2.8, hyponatremia 131, BUN 51 and creatinine 1.9. During this
time patient had also been seen by primary care physician and was found to have UTI and was started on ciprofloxacin 07/06/23. Patient admitted to not feeling well and was referred to emergency department for further evaluation after abnormal labs.
Patient received both K rider, mag rider and oral potassium 80 mEq in emergency department. EKG showed atrial fibrillation with controlled ventricular response and left bundle branch block. Chest x-ray with no acute cardiopulmonary abnormality.
At time of this evaluation she continues to have foggy thinking. She also notes mid to low back pain. She denies shortness of breath or chest pain. She has chronic dyspnea on exertion.
Progress Note - Sack Repairer
Subjective
Date of Service: July 10, 2023
Patient seen and examined. Patient sitting up in chair after ambulating to the bathroom. Patient reports that she is feeling better, Denies chest pain or shortness of breath. Her biggest concern is unintentional involuntary movements of her arms.
Objective
Labs:
07/08/23 06:48
Labs
Hgb 10.2 g/dL (12.0-16.0) L 07/08/23 06:48
Hct 31.0 % (37.0-47.0) L 07/08/23 06:48
Plt Count 152 10^3/uL (130-400) 07/08/23 06:48
Sodium 136 mmol/L (135-145) 07/10/23 07:31
Potassium 3.4 mmol/L (3.5-5.1) L 07/10/23 07:31
BUN 40 mg/dl (7-17) H 07/10/23 07:31
Creatinine 1.5 mg/dL (0.6-1.0) H 07/10/23 07:31
Glucose 134 mg/dl (70-99) H 07/10/23 07:31
Vital Signs and I&O:
Vital Signs
Temp Pulse Resp BP Pulse Ox
98.3 F 81 17 101/52 97
07/10/23 08:05 07/10/23 08:58 07/10/23 08:05 07/10/23 08:58 07/10/23 08:05
Vital Signs
Temp Pulse Resp BP Pulse Ox
98.3 F 81 17 101/52 97
07/10/23 08:05 07/10/23 08:58 07/10/23 08:05 07/10/23 08:58 07/10/23 08:05
Intake & Output
07/08/23 07/09/23 07/10/23 07/11/23
06:59 06:59 06:59 06:59
Intake Total 380 / 380 660 / 660 990 / 990
Output Total 250 / 250
Balance 130 / 130 660 / 660 990 / 990
Physical Exam
Physical Exam
GEN: No distress, awake, Ox3, lying in bed
HEENT: supple, anicteric, mmm
LUNGS: CTA bilaterally, no wheezes/rales
CV: Irregularly irregular, S1/S2, no murmur, rub or gallops
ABD: soft, BS+, NT/ND
EXT: Trace lower extremity edema, skin changes consistent with chronic venous stasis
NEURO: involuntary movements of her arms
SKIN: No rash, warm, dry, pink
[2023-07-10] MEDS: KCL 40 MEQ PO (09:24)
--- NOTE | 2023-07-10 10:49 | CM ---
Reviewed the chart notes. Per VN, not current with them. Referral sent for VN services at discharge. CM continues to be available to patient/family and is monitoring medical plan for needs at discharge.
Plan: Discharge to home when medically stable with VN services.
[2023-07-10 11:27] LABS: Glucose - Point of Care 232 mg/dl (70-99)
[2023-07-10 11:32] VITALS: BP 118/60
--- NOTE | 2023-07-10 12:05 | CON.NEURO4 ---
Consultation - Neurology 4
-
CONSULTING PHYSICIAN: Kathy Casanova
REFERRING PHYSICIAN: Hospitalist
DICTATED BY: Kathy Casanova
DATE/TIME OF REQUEST: 07/10/23
DATE/TIME OF CONSULTATION: 07/10/23
Reason for Consultation: Abnormal movements
History of Present Illness:
Patient is a 72-year-old woman with a past medical history of obesity, type 2 diabetes mellitus with peripheral neuropathy, chronic kidney disease, heart failure preserved ejection fraction who presented to hospital with abnormal labs as well as
fatigue and mild confusion. A mild acute kidney injury on top of chronic kidney disease was present on admission which is improved, additionally had low potassium to 2.8 which is improved today.
Patient says that she has had some worsening of abnormal movements which have been going on for at least a couple of months now. Reports that she has had minor tremulous like movement in the hands bilaterally for several months and also has had
some very brief abrupt shocklike jerking movements involving the limbs bilaterally or sometimes the whole body that have been more frequent recently. The short jerky like movements been going on for about a year but they do not happen every day
might happen times a week. These movements do not seem to wake her from sleep they are painless and there does not seem to be any pattern to when they happen more frequently and do not seem to be able to be triggered by anything other than moving.
She does not have any loss of consciousness during this movements and has no personal or family history of seizures.
Also describes some fogginess and speech difficulties going on which have been worsening for her baseline.
She reports she has been on gabapentin 1200 mg twice daily for many years with no recent changes in this she does think that she got some brain fogginess and some cognitive issues when first starting it. Has been on same dose of 10 mg oxycodone
every 6 hours mainly for shoulder pain for many years with no recent changes.
Past Medical History: Heart failure with preserved ejection fraction, type 2 diabetes mellitus with associated peripheral neuropathy, atrial fibrillation, treated HCV with cirrhosis, hypertension, COPD, lumbar spinal stenosis, depression
Surgical History: Bilateral tubal ligation, carpal tunnel surgery release, left upper lobe lobectomy, lumbar laminectomy, right and left total knee replacements, bariatric sleeve procedure, cataract surgery
Family History: No family history of seizures or tremor
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
Review of Symptoms:
Patient denies any fever, headache, chest pain, shortness of breath, GI or symptoms.
Physical Exam:
Middle elderly age woman, obese, no signs of distress, head normocephalic, eyes clear oropharynx clear, neck supple no masses, heart rate regular, breathing unlabored, abdomen is obese soft nontender, lower extremity mild edema is seen, no rashes
Neurologic Examination:
The patient is awake, alert and oriented x 3. She is able to follow commands and answer questions appropriately. There is no aphasia or dysarthria. On cranial nerve assessment, pupils are 3 mm bilateral, round and reactive to light and
accommodation. Visual light are full. Extraocular movements are intact. Facial sensations are intact and bilaterally symmetrical, there is no facial asymmetry. Hearing is intact bilaterally to normal conversation volume. Tongue palate and uvula
are midline. Sternocleidomastoid strengths are full bilaterally. Motor strengths are 5/5 bilateral upper and lower extremities on medical research [place] scale. Asterixis seen bilaterally with arms held in front of her with wrists extended.
Decreased sensation to light touch distally, intact to cold. There was no extinction noted on double simultaneous stimulation. Coordination is intact by finger to nose bilaterally.
Impressions
1. Patient is seen to have some asterixis of the hands which is most likely due to CKD and this could have been worsened during the recent MARCO, additionally has a history of compensated cirrhosis that could also produce some asterixis.
2. Patient describes some myoclonic movements as well. This is probably due to the presence of high-dose of gabapentin worsened with the mild MARCO and CKD. Some possibility that her chronic oxycodone could also produce this but more suspicious
that gabapentin is causative.
3. Cognitive symptoms probably attributable to high-dose of gabapentin on top of MARCO and CKD.
4. Peripheral neuropathy due to diabetes treated with Gabapentin at same 1200 mg BID dose for many years
Recommendations:
1. Would do small decrease of gabapentin upon discharge. Decreased to 900 mg gabapentin in the day and keep the 1200 mg at night. Discussed that
-After 1 week decrease this to 900 mg twice daily and keep on the same dose
2. Keep Oxycodone dose the same
3. Do not feel she needs EEG or brain imaging
4. Provided information for neurology office, if symptoms persist or do not approve follow up in 4-6 weeks with SOLDERING MACHINE FEEDER or physician
Discussed patient care with: Patient and hospitalist
[2023-07-10] MEDS: NOVOLOG FLEXPEN-LOW RESISTANCE 2 UNITS SC (13:28)
[2023-07-10 14:32] LABS: Blood Urea Nitrogen 38 mg/dl (7-17); Calcium 9.2 mg/dl (8.4-10.2); Carbon Dioxide 35 mmol/L (22-30); Chloride 93 mmol/L (98-107); Estimated Creatinine Clearance 43 ml/min; Glucose 151 mg/dl (70-99); Potassium 4.1 mmol/L (3.5-5.1); Sodium 136 mmol/L (135-145); eGFR 37.03
--- NOTE | 2023-07-10 14:48 | W.DCSUMMARY ---
Discharge Summary
Discharge Data
Date of Admission: 07/08/23
Date of Discharge: 07/10/23
-
Pending Results: No
Hospital Course
Patient is 72 years of female with history of diabetes mellitus, obesity, CKD, CHF, cirrhosis presented to the hospital with abnormal labs associated with generalized weakness mental status changes and found to be in acute on chronic renal failure
as well as significant hypokalemia. Of note patient has been ongoing diuresis with Furoscix patch as outpatient. Cardiology consulted. Diuretics needed to be held during his hospital stay and later on restarted and adjusted as described on the
discharge medications list. Patient also found to have a recent urinary tract infection and was treated with antibiotics as outpatient but urine cultures and blood cultures no growth and antibiotics were discontinued. Electrolytes were difficult
to control but they improved overall. Neurology was consulted and they feel that some of her manifestations and symptoms were related to renal failure and use of gabapentin so this was decreased upon discharge. Latest potassium is 4.1 today.
Cardiology cleared her for discharge today. Otherwise, patient is hemodynamically stable, afebrile, and she is going to be discharged in stable condition today.
Discharge duration: 36 minutes
Discharge Plan
-
Patient Disposition: Home with Home Care
Discharge Diagnosis/Procedures: Severe hypokalemia. Acute kidney injury on chronic kidney disease. Toxic metabolic encephalopathy. Asterixis. Hyponatremia. Chronic diastolic congestive heart failure. Persistent atrial fibrillation. Cirrhosis
due to hepatitis C virus.
Condition: Good
Diet: Low Cholesterol, Low Sodium and Restrict fluids to 48 oz
Activity: As tolerated
Driving Restrictions: As prior to admission
Blood Work: Please PCP to order CBC, CMP, magnesium within 1 week.
Specialty Instructions: Weigh Daily- Call MD for wt gain/loss 3 lbs overnight/5 lbs in 1 week
Instructions: *[facility] Heart Failure Instructions
Referrals:
Chandler Casanova MD [Active] - in four to six weeks
Aniya Grullon PA-C [Specified Professional Personl] - 07/31/23 9:40 am (You have a cardiology follow up with Aniya Grullon PA-C on July 30 at 9:40 am. If you are unable to make this appointment please call [phone] to reschedule)
Joanie Jane PA [Family Provider] - in less than 1 week
Prescriptions:
New
gabapentin 600 mg tablet
900 mg PO DAILY Qty: 60 0RF
Continued
pantoprazole 40 mg Tablet,Delayed Release (Dr/Ec)
40 mg PO DAILY
rosuvastatin 5 mg Tablet
5 mg PO DAILY
venlafaxine 75 mg capsule,extended release 24hr
75 mg PO DAILY
cyanocobalamin (vitamin B-12) 1,000 mcg/mL Solution
1,000 mcg IM QMONTH
Rx Instructions:
Next dose- 11/30/2022
sennosides-docusate sodium 8.6-50 mg tablet
2 tab-cap PO HS Qty: 180 0RF
insulin degludec [Tresiba U-100 Insulin] 100 unit/mL Solution
24 unit SC DAILY Qty: 0 0RF
bisacodyl 5 mg tablet
5 mg PO HS
oxycodone 10 mg tablet
10 mg PO Q6H
Eliquis 5 mg Tablet
5 mg PO BID Qty: 60 0RF
spironolactone 25 mg Tablet
12.5 mg PO DAILY Qty: 30 0RF
diltiazem HCl 240 mg Tablet Extended Release 24 Hr
240 mg PO DAILY Qty: 30 0RF
solifenacin [Vesicare] 5 mg Tablet
5 mg PO DAILY
Changed
metoprolol succinate 50 mg tablet extended release 24 hr
100 mg PO QPM 30 Days Qty: 60 0RF
gabapentin 600 mg Tablet
1,200 mg PO HS Qty: 0 0RF
furosemide [Lasix] 40 mg tablet
60 mg PO BID Qty: 90 0RF
potassium chloride [Klor-Con M20] 20 mEq tablet,ER particles/crystals
20 meq PO BID Qty: 60 0RF
Discontinued
metolazone 2.5 mg Tablet
2.5 mg PO MO
Discharge Orders:
Discharge Patient (As Directed); Ordered 07/10/23
Ordered By: Iraj Tovar
Discharge Date and Time
Discharge Date/Time: 07/10/23 17:28
Print Language: ARMENIAN
[2023-07-10 15:25] VITALS: BP 109/63
[2023-07-10] MEDS: KCL PO (16:41)
[2023-07-10] MEDS: LASIX 40 MG PO (16:41)
[2023-07-10 16:53] LABS: Glucose - Point of Care 187 mg/dl (70-99)
--- NOTE | 2023-07-11 08:46 | W.HF.CON ---
Heart Failure
- LV Function
Left ventricular function study result: LV Ejection fraction >40%
Ejection Fraction Percentage: 55-60
- ARNI
Patient already on ARNI: No
Heart Failure ARNI Not Indicated: LV Ejection Fraction >/= 40%
- ACEI/ARB
Patient already on ACEI/ARB: No
Heart Failure ACEI/ARB Not Indicated: LV Ejection Fraction > 40%
- Beta Papa
Patient already on Evidence Based Beta Papa: Yes
- Mineralocorticord Receptor Antagonist
Patient already on MRA: Yes
- SGLT-2 Inhibitor
Patient already on SGLT-2 Inhibitor: No
Heart Failure SGLT-2 Inhibitor Not Indicated: LV Ejection Fraction >40%
- Afib Anticoagulation
Patient already on Anticoagulation for Afib: Yes
- NYHA CHF Classification
NYHA CHF Classification Level: Class III - Symptoms w/ min exertion, interferes w/ nml daily activity
- ACC/AHA Stage
ACC/AHA Stage: Stage C: Symptomatic Heart Failure
== END 2023-07-10 17:28 | disposition home health service (06) | DRG 640 ==
LOC: 2 NORTH 00:47
PROVIDERS: Hospitalist; Physician Assistant; Student in an Organized Health Care Education/Training Program; ADMITTING PHYSICIAN Hospitalist; ATTENDING PHYSICIAN Hospitalist; CONSULT PHYSICIAN Student in an Organized Health Care Education/Training Program; EMERGENCY PHYSICIAN Emergency Medicine; FAMILY PHYSICIAN Physician Assistant; OTHER PHYSICIAN Internal Medicine Cardiovascular Disease
DX: E87.6 Hypokalemia (principal); G92.8 Other toxic encephalopathy; I50.32 Chronic diastolic (congestive) heart failure; I13.0 Hypertensive heart and chronic kidney disease with heart failure and stage 1 through stage 4 chronic kidney disease, or unspecified chronic kidney disease; E66.2 Morbid (severe) obesity with alveolar hypoventilation; I48.21 Permanent atrial fibrillation; Z68.43 Body mass index [BMI] 50.0-59.9, adult; F11.20 Opioid dependence, uncomplicated; N17.9 Acute kidney failure, unspecified; E87.1 Hypo-osmolality and hyponatremia; E87.3 Alkalosis; E11.22 Type 2 diabetes mellitus with diabetic chronic kidney disease; E11.51 Type 2 diabetes mellitus with diabetic peripheral angiopathy without gangrene; E78.00 Pure hypercholesterolemia, unspecified; K70.30 Alcoholic cirrhosis of liver without ascites; E11.41 Type 2 diabetes mellitus with diabetic mononeuropathy; G57.90 Unspecified mononeuropathy of unspecified lower limb; N18.32 Chronic kidney disease, stage 3b; F41.9 Anxiety disorder, unspecified; G89.4 Chronic pain syndrome; M48.061 Spinal stenosis, lumbar region without neurogenic claudication; R26.2 Difficulty in walking, not elsewhere classified; F32.A Depression, unspecified; I25.10 Atherosclerotic heart disease of native coronary artery without angina pectoris; K59.09 Other constipation; M19.011 Primary osteoarthritis, right shoulder; M19.012 Primary osteoarthritis, left shoulder; I89.0 Lymphedema, not elsewhere classified; D64.9 Anemia, unspecified; K64.9 Unspecified hemorrhoids; D69.6 Thrombocytopenia, unspecified; R16.1 Splenomegaly, not elsewhere classified; B19.20 Unspecified viral hepatitis C without hepatic coma; I44.7 Left bundle-branch block, unspecified; J44.9 Chronic obstructive pulmonary disease, unspecified; E11.42 Type 2 diabetes mellitus with diabetic polyneuropathy; E11.65 Type 2 diabetes mellitus with hyperglycemia; Z79.01 Long term (current) use of anticoagulants; Z87.891 Personal history of nicotine dependence; Z86.010 Personal history of colon polyps; Z88.0 Allergy status to penicillin; Z88.8 Allergy status to other drugs, medicaments and biological substances; Z98.84 Bariatric surgery status; Z87.440 Personal history of urinary (tract) infections
CPT/HCPCS: 71046; 80048; 80053; 81003; 81015; 82962; 83036; 83735; 83880; 83930; 83935; 84132; 84300; 85025; 85027; 87086; 93005; 96365; 96366; 96375; 97162; 97166; 99285

== ENCOUNTER → 2023-07-14 11:29 | Outpatient (REF) | payer MEDICARE, OTHER, SELFPAY ==
[2023-07-14 12:21] LABS: ALT (SGPT) 13 U/L (0-35); AST (SGOT) 24 U/L (14-36); Albumin 4.3 g/dl (3.5-5.0); Alkaline Phosphatase 94 U/L (38-126); Blood Urea Nitrogen 32 mg/dl (7-17); Calcium 9.1 mg/dl (8.4-10.2); Carbon Dioxide 35 mmol/L (22-30); Chloride 92 mmol/L (98-107); Glucose 112 mg/dl (70-99); Magnesium 2.2 mg/dl (1.6-2.3); Potassium 3.9 mmol/L (3.5-5.1); Sodium 136 mmol/L (135-145); Total Bilirubin 0.6 mg/dl (0.2-1.3); Total Protein 7.3 g/dl (6.3-8.2); eGFR 34.27
== END ==
LOC: OLAB 11:29
PROVIDERS: ATTENDING PHYSICIAN Physician Assistant; REFERRING PHYSICIAN Physician Assistant Medical
DX: I50.9 Heart failure, unspecified (principal); E87.6 Hypokalemia; N18.9 Chronic kidney disease, unspecified
CPT/HCPCS: 80053; 83735

== ENCOUNTER → 2023-07-19 12:57 | Outpatient (REF) | payer MEDICARE, OTHER, SELFPAY ==
[2023-07-19 13:23] LABS: % Basophils 0.4 % (0-2); % Eosinophils 2.6 % (0-6); % Immature Granulocytes 0.2 % (0-0.5); % Lymphocytes 13.9 % (20.5-51.1); % Monocytes 6.3 % (1.7-9.3); % Neutrophils 76.6 % (42.2-75.2); Absolute Eosinophils 0.1 10^3/uL (0-0.7); Absolute Lymphocytes 0.8 10^3/uL (1.2-3.4); Absolute Monocytes 0.3 10^3/uL (0.1-0.6); Absolute Neutrophils 4.1 10^3/uL (1.4-6.5); Hematocrit 33.2 % (37.0-47.0); Hemoglobin 10.8 g/dL (12.0-16.0); Mean Corp Hgb Conc. 32.5 g/dL (33.0-37.0); Mean Corpuscular Hgb 29.7 pg (27.0-31.0); Mean Corpuscular Volume 91.2 fL (81.0-99.0); Nucleated Red Blood Cells % 0 %; Platelet Count 188 10^3/uL (130-400); Red Blood Cell Count 3.64 10^6/uL (4.20-5.40); Red Cell Dist. Width 13.3 % (11.5-14.5); White Blood Cell Count 5.4 10^3/uL (4.8-10.8)
[2023-07-19 15:26] LABS: Blood Urea Nitrogen 36 mg/dl (7-17); Calcium 8.8 mg/dl (8.4-10.2); Carbon Dioxide 28 mmol/L (22-30); Chloride 97 mmol/L (98-107); Glucose 196 mg/dl (70-99); Potassium 4.4 mmol/L (3.5-5.1); Sodium 135 mmol/L (135-145); eGFR 34.27
== END ==
LOC: OLAB 12:57
PROVIDERS: ATTENDING PHYSICIAN Physician Assistant
DX: E87.6 Hypokalemia (principal); I13.0 Hypertensive heart and chronic kidney disease with heart failure and stage 1 through stage 4 chronic kidney disease, or unspecified chronic kidney disease; D64.9 Anemia, unspecified; E88.42 MERRF syndrome
CPT/HCPCS: 36415; 80048; 85025

== ENCOUNTER → 2023-07-26 09:11 | Outpatient (REF) | payer MEDICARE, OTHER, SELFPAY ==
[2023-07-26 10:00] LABS: % Basophils 0.2 % (0-2); % Eosinophils 1.4 % (0-6); % Immature Granulocytes 0.4 % (0-0.5); % Lymphocytes 27.2 % (20.5-51.1); % Monocytes 10.2 % (1.7-9.3); % Neutrophils 60.6 % (42.2-75.2); Absolute Eosinophils 0.1 10^3/uL (0-0.7); Absolute Lymphocytes 1.3 10^3/uL (1.2-3.4); Absolute Monocytes 0.5 10^3/uL (0.1-0.6); Hematocrit 33.1 % (37.0-47.0); Hemoglobin 10.2 g/dL (12.0-16.0); Mean Corp Hgb Conc. 30.8 g/dL (33.0-37.0); Mean Corpuscular Hgb 28.2 pg (27.0-31.0); Mean Corpuscular Volume 91.4 fL (81.0-99.0); Mean Platelet Volume 11.2 fL (7.4-10.4); Nucleated Red Blood Cells % 0 %; Platelet Count 157 10^3/uL (130-400); Red Blood Cell Count 3.62 10^6/uL (4.20-5.40); Red Cell Dist. Width 13.3 % (11.5-14.5); White Blood Cell Count 4.9 10^3/uL (4.8-10.8)
[2023-07-26 10:33] LABS: ALT (SGPT) 16 U/L (0-35); AST (SGOT) 20 U/L (14-36); Albumin 4.2 g/dl (3.5-5.0); Alkaline Phosphatase 80 U/L (38-126); Blood Urea Nitrogen 49 mg/dl (7-17); Calcium 8.8 mg/dl (8.4-10.2); Carbon Dioxide 38 mmol/L (22-30); Chloride 91 mmol/L (98-107); Glucose 130 mg/dl (70-99); HDL Cholesterol 78 mg/dl; LDL Cholesterol, Calculated 35 mg/dl; Potassium 2.9 mmol/L (3.5-5.1); Sodium 139 mmol/L (135-145); Total Bilirubin 0.6 mg/dl (0.2-1.3); Total Cholesterol 128 mg/dl (50-199); Total Protein 7.1 g/dl (6.3-8.2); Triglyceride 76 mg/dl (10-149); Very Low Density Lipoprotein 15 mg/dl (0-30); eGFR 29.75
== END ==
LOC: OLAB 09:11
PROVIDERS: ATTENDING PHYSICIAN Physician Assistant
DX: I50.32 Chronic diastolic (congestive) heart failure (principal); E11.22 Type 2 diabetes mellitus with diabetic chronic kidney disease; N18.32 Chronic kidney disease, stage 3b
CPT/HCPCS: 80053; 80061; 85025

== ENCOUNTER → 2023-08-03 15:13 | Outpatient (REF) | payer MEDICARE, OTHER, SELFPAY ==
[2023-08-03 16:13] LABS: Blood Urea Nitrogen 36 mg/dl (7-17); Calcium 9.1 mg/dl (8.4-10.2); Carbon Dioxide 33 mmol/L (22-30); Chloride 95 mmol/L (98-107); Glucose 247 mg/dl (70-99); Phosphorus 3.7 mg/dl (2.5-4.5); Potassium 3.7 mmol/L (3.5-5.1); Sodium 137 mmol/L (135-145); eGFR 34.27
== END ==
LOC: REG 15:13
PROVIDERS: ATTENDING PHYSICIAN Internal Medicine Cardiovascular Disease; FAMILY PHYSICIAN Physician Assistant
DX: E87.6 Hypokalemia (principal); R79.89 Other specified abnormal findings of blood chemistry; D64.9 Anemia, unspecified; E83.42 Hypomagnesemia; N18.2 Chronic kidney disease, stage 2 (mild); I50.9 Heart failure, unspecified
CPT/HCPCS: 36415; 80048; 80069; 83735

== ENCOUNTER → 2023-08-15 10:30 | Outpatient (REF) | payer MEDICARE, OTHER, SELFPAY ==
[2023-08-15 17:56] LABS: Albumin 4.2 g/dl (3.5-5.0); Blood Urea Nitrogen 45 mg/dl (7-17); Calcium 8.7 mg/dl (8.4-10.2); Carbon Dioxide 38 mmol/L (22-30); Chloride 91 mmol/L (98-107); Glucose 135 mg/dl (70-99); Phosphorus 4.4 mg/dl (2.5-4.5); Potassium 3.4 mmol/L (3.5-5.1); Sodium 136 mmol/L (135-145); eGFR 31.86
== END ==
LOC: CLAB 10:30
PROVIDERS: ATTENDING PHYSICIAN Physician Assistant
DX: I13.0 Hypertensive heart and chronic kidney disease with heart failure and stage 1 through stage 4 chronic kidney disease, or unspecified chronic kidney disease (principal); I50.32 Chronic diastolic (congestive) heart failure; E11.22 Type 2 diabetes mellitus with diabetic chronic kidney disease
CPT/HCPCS: 80048; 80069

== ENCOUNTER → 2023-08-24 17:53 | Outpatient (REF) | payer MEDICARE, OTHER, SELFPAY ==
[2023-08-24 19:46] LABS: % Basophils 0.4 % (0-2); % Eosinophils 2.1 % (0-6); % Immature Granulocytes 0.4 % (0-0.5); % Lymphocytes 16.4 % (20.5-51.1); % Monocytes 9.8 % (1.7-9.3); % Neutrophils 70.9 % (42.2-75.2); Absolute Eosinophils 0.1 10^3/uL (0-0.7); Absolute Lymphocytes 0.9 10^3/uL (1.2-3.4); Absolute Monocytes 0.6 10^3/uL (0.1-0.6); Hematocrit 33.7 % (37.0-47.0); Hemoglobin 10.6 g/dL (12.0-16.0); Mean Corp Hgb Conc. 31.5 g/dL (33.0-37.0); Mean Corpuscular Hgb 27.6 pg (27.0-31.0); Mean Corpuscular Volume 87.8 fL (81.0-99.0); Mean Platelet Volume 11.7 fL (7.4-10.4); Nucleated Red Blood Cells % 0 %; Platelet Count 183 10^3/uL (130-400); Red Blood Cell Count 3.84 10^6/uL (4.20-5.40); Red Cell Dist. Width 14.6 % (11.5-14.5); White Blood Cell Count 5.6 10^3/uL (4.8-10.8)
[2023-08-24 19:54] LABS: Blood Urea Nitrogen 54 mg/dl (7-17); Calcium 9.2 mg/dl (8.4-10.2); Carbon Dioxide 33 mmol/L (22-30); Chloride 89 mmol/L (98-107); Glucose 154 mg/dl (70-99); Iron 45 ug/dl (37-170); Potassium 2.8 mmol/L (3.5-5.1); Sodium 137 mmol/L (135-145); eGFR 27.88
[2023-08-24 20:04] LABS: Percent Saturation 9 % (20-50); Total Iron Binding Capacity 466 ug/dl (265-497)
[2023-08-24 20:28] LABS: Ferritin 16.1 ng/ml (11.1-264.0)
== END ==
LOC: OLAB 17:53
PROVIDERS: ATTENDING PHYSICIAN Physician Assistant; OTHER PHYSICIAN Internal Medicine Cardiovascular Disease
DX: I13.0 Hypertensive heart and chronic kidney disease with heart failure and stage 1 through stage 4 chronic kidney disease, or unspecified chronic kidney disease (principal); N18.32 Chronic kidney disease, stage 3b
CPT/HCPCS: 80048; 82728; 83540; 83550; 85025

== ENCOUNTER → 2023-09-04 10:26 | Outpatient (REF) | payer MEDICARE, OTHER, SELFPAY | LOC: WDC 10:26 | PROVIDERS: ATTENDING PHYSICIAN Nurse Practitioner Family | DX: R22.31 Localized swelling, mass and lump, right upper limb (principal); N63.31 Unspecified lump in axillary tail of the right breast | CPT/HCPCS: 76642; 77062; 77066 ==

== ENCOUNTER → 2023-09-08 13:24 | Outpatient (REF) | payer MEDICARE, OTHER, SELFPAY ==
[2023-09-08 14:13] LABS: Albumin 4.1 g/dl (3.5-5.0); Blood Urea Nitrogen 41 mg/dl (7-17); Calcium 8.8 mg/dl (8.4-10.2); Carbon Dioxide 29 mmol/L (22-30); Chloride 98 mmol/L (98-107); Glucose 197 mg/dl (70-99); Phosphorus 4.9 mg/dl (2.5-4.5); Potassium 3.8 mmol/L (3.5-5.1); Sodium 139 mmol/L (135-145); eGFR 31.86
== END ==
LOC: OLAB 13:24
PROVIDERS: ATTENDING PHYSICIAN Internal Medicine Cardiovascular Disease; FAMILY PHYSICIAN Physician Assistant
DX: I50.9 Heart failure, unspecified (principal)
CPT/HCPCS: 36415; 80069

== ENCOUNTER → 2023-10-04 10:55 | Outpatient (REF) | payer MEDICARE, OTHER, SELFPAY ==
[2023-10-04 13:26] LABS: ALT (SGPT) 14 U/L (0-35); AST (SGOT) 19 U/L (14-36); Albumin 4.3 g/dl (3.5-5.0); Alkaline Phosphatase 93 U/L (38-126); Blood Urea Nitrogen 44 mg/dl (7-17); Calcium 8.9 mg/dl (8.4-10.2); Carbon Dioxide 29 mmol/L (22-30); Chloride 94 mmol/L (98-107); Glucose 156 mg/dl (70-99); Potassium 3.4 mmol/L (3.5-5.1); Sodium 138 mmol/L (135-145); Total Bilirubin 0.6 mg/dl (0.2-1.3); Total Protein 6.9 g/dl (6.3-8.2); eGFR 26.05
[2023-10-04 13:39] LABS: % Basophils 0.4 % (0-2); % Eosinophils 3.5 % (0-6); % Immature Granulocytes 0.4 % (0-0.5); % Lymphocytes 18.9 % (20.5-51.1); % Monocytes 10.6 % (1.7-9.3); % Neutrophils 66.2 % (42.2-75.2); Absolute Eosinophils 0.2 10^3/uL (0-0.7); Absolute Monocytes 0.6 10^3/uL (0.1-0.6); Absolute Neutrophils 3.4 10^3/uL (1.4-6.5); Hematocrit 31.1 % (37.0-47.0); Hemoglobin 9.6 g/dL (12.0-16.0); Mean Corp Hgb Conc. 30.9 g/dL (33.0-37.0); Mean Corpuscular Hgb 26.2 pg (27.0-31.0); Mean Corpuscular Volume 84.7 fL (81.0-99.0); Mean Platelet Volume 12.6 fL (7.4-10.4); Nucleated Red Blood Cells % 0 %; Platelet Count 166 10^3/uL (130-400); Red Blood Cell Count 3.67 10^6/uL (4.20-5.40); Red Cell Dist. Width 15.2 % (11.5-14.5); White Blood Cell Count 5.2 10^3/uL (4.8-10.8)
== END ==
LOC: OLAB 10:55
PROVIDERS: ATTENDING PHYSICIAN Internal Medicine Cardiovascular Disease; FAMILY PHYSICIAN Physician Assistant
DX: I13.0 Hypertensive heart and chronic kidney disease with heart failure and stage 1 through stage 4 chronic kidney disease, or unspecified chronic kidney disease (principal); I50.32 Chronic diastolic (congestive) heart failure
CPT/HCPCS: 36415; 80053; 85025

== ENCOUNTER → 2023-10-09 12:00 | Outpatient (REF) | payer MEDICARE, OTHER, SELFPAY ==
[2023-10-10 12:09] LABS: Alkaline Phosphatase 88 U/L (38-126); Blood Urea Nitrogen 36 mg/dl (7-17); Carbon Dioxide 30 mmol/L (22-30); Chloride 95 mmol/L (98-107); Glucose 187 mg/dl (70-99); Sodium 139 mmol/L (135-145)
[2023-10-10 12:10] LABS: ALT (SGPT) 14 U/L (0-35); AST (SGOT) 21 U/L (14-36); Albumin 4.3 g/dl (3.5-5.0); Total Bilirubin 0.5 mg/dl (0.2-1.3); Total Protein 6.8 g/dl (6.3-8.2)
== END ==
LOC: OLAB 12:00
PROVIDERS: ATTENDING PHYSICIAN Physician Assistant
DX: E87.6 Hypokalemia (principal); D64.9 Anemia, unspecified
CPT/HCPCS: 80053

== ENCOUNTER → 2023-10-13 10:04 | Outpatient (REF) | payer MEDICARE, OTHER, SELFPAY ==
[2023-10-13 11:39] LABS: Blood Urea Nitrogen 38 mg/dl (7-17); Carbon Dioxide 32 mmol/L (22-30); Chloride 98 mmol/L (98-107); Glucose 167 mg/dl (70-99); Potassium 4.2 mmol/L (3.5-5.1); Sodium 138 mmol/L (135-145); eGFR 31.66
== END ==
LOC: OLAB 10:04
PROVIDERS: ATTENDING PHYSICIAN Physician Assistant
DX: E87.6 Hypokalemia (principal)
CPT/HCPCS: 80048

== ENCOUNTER → 2023-12-04 13:32 | Outpatient (REF) | payer MEDICARE, OTHER, SELFPAY ==
[2023-12-04 14:28] LABS: Blood Urea Nitrogen 40 mg/dl (7-17); Calcium 8.9 mg/dl (8.4-10.2); Carbon Dioxide 35 mmol/L (22-30); Chloride 88 mmol/L (98-107); Glucose 198 mg/dl (70-99); Potassium 3.3 mmol/L (3.5-5.1); Sodium 137 mmol/L (135-145); eGFR 34.05
== END ==
LOC: OLAB 13:32
PROVIDERS: ATTENDING PHYSICIAN Internal Medicine Cardiovascular Disease; FAMILY PHYSICIAN Physician Assistant
DX: I13.0 Hypertensive heart and chronic kidney disease with heart failure and stage 1 through stage 4 chronic kidney disease, or unspecified chronic kidney disease (principal); N18.32 Chronic kidney disease, stage 3b
CPT/HCPCS: 36415; 80048

== ENCOUNTER → 2023-12-29 17:39 | Outpatient (REF) | payer MEDICARE, OTHER, SELFPAY ==
[2023-12-29 18:36] LABS: Blood Urea Nitrogen 36 mg/dl (7-17); Calcium 9.1 mg/dl (8.4-10.2); Carbon Dioxide 38 mmol/L (22-30); Chloride 89 mmol/L (98-107); Glucose 187 mg/dl (70-99); Iron 28 ug/dl (37-170); Sodium 138 mmol/L (135-145); eGFR 27.71
[2023-12-29 19:12] LABS: Ferritin 21.1 ng/ml (11.1-264.0)
[2023-12-29 19:24] LABS: Hematocrit 29.4 % (37.0-47.0); Hemoglobin 9.1 g/dL (12.0-16.0); Mean Corpuscular Hgb 25.3 pg (27.0-31.0); Mean Corpuscular Volume 81.7 fL (81.0-99.0); Mean Platelet Volume 12.1 fL (7.4-10.4); Nucleated Red Blood Cells % 0 %; Platelet Count 174 10^3/uL (130-400); Red Cell Dist. Width 16.8 % (11.5-14.5); White Blood Cell Count 4.6 10^3/uL (4.8-10.8)
[2023-12-29 19:36] LABS: % Basophils 0.4 % (0-2); % Eosinophils 2.9 % (0-6); % Immature Granulocytes 0.4 % (0-0.5); % Lymphocytes 18.7 % (20.5-51.1); % Monocytes 12.7 % (1.7-9.3); % Neutrophils 64.9 % (42.2-75.2); Absolute Eosinophils 0.1 10^3/uL (0-0.7); Absolute Lymphocytes 0.9 10^3/uL (1.2-3.4); Absolute Monocytes 0.6 10^3/uL (0.1-0.6)
== END ==
LOC: OLAB 17:39
PROVIDERS: ATTENDING PHYSICIAN Physician Assistant; OTHER PHYSICIAN Internal Medicine Cardiovascular Disease; REFERRING PHYSICIAN Physician Assistant Medical
DX: I13.0 Hypertensive heart and chronic kidney disease with heart failure and stage 1 through stage 4 chronic kidney disease, or unspecified chronic kidney disease (principal); D63.1 Anemia in chronic kidney disease
CPT/HCPCS: 36415; 80048; 82728; 83540; 85025

== ENCOUNTER 2024-01-15 14:15 | Outpatient (RCR) | payer MEDICARE, OTHER, SELFPAY ==
[2024-01-08 14:30] VITALS: BP 135/82
[2024-01-08] MEDS: INJECTAFER 265 MG IV (14:46)
[2024-01-08 15:25] VITALS: BP 102/55
[2024-01-15 14:30] VITALS: BP 152/76
[2024-01-15] MEDS: INJECTAFER 265 MG IV (14:45)
== END 2024-01-16 09:10 | disposition home or self-care (01) ==
LOC: OID 14:15
PROVIDERS: ATTENDING PHYSICIAN Physician Assistant
DX: D50.0 Iron deficiency anemia secondary to blood loss (chronic) (principal); N28.9 Disorder of kidney and ureter, unspecified; E11.51 Type 2 diabetes mellitus with diabetic peripheral angiopathy without gangrene; E87.6 Hypokalemia; I25.10 Atherosclerotic heart disease of native coronary artery without angina pectoris; I48.0 Paroxysmal atrial fibrillation; I50.32 Chronic diastolic (congestive) heart failure; Z79.01 Long term (current) use of anticoagulants
CPT/HCPCS: 96365; J1439

== ENCOUNTER → 2024-02-07 10:00 | Outpatient (REF) | payer MEDICARE, OTHER, SELFPAY ==
[2024-02-07 13:14] LABS: % Basophils 0.6 % (0-2); % Immature Granulocytes 0.2 % (0-0.5); % Lymphocytes 18.5 % (20.5-51.1); % Monocytes 9.3 % (1.7-9.3); % Neutrophils 68.4 % (42.2-75.2); Absolute Eosinophils 0.2 10^3/uL (0-0.7); Absolute Lymphocytes 0.9 10^3/uL (1.2-3.4); Absolute Monocytes 0.5 10^3/uL (0.1-0.6); Absolute Neutrophils 3.4 10^3/uL (1.4-6.5); Hematocrit 37.6 % (37.0-47.0); Hemoglobin 11.4 g/dL (12.0-16.0); Mean Corp Hgb Conc. 30.3 g/dL (33.0-37.0); Mean Corpuscular Hgb 27.5 pg (27.0-31.0); Mean Corpuscular Volume 90.8 fL (81.0-99.0); Nucleated Red Blood Cells % 0 %; Platelet Count 109 10^3/uL (130-400); Red Blood Cell Count 4.14 10^6/uL (4.20-5.40); Red Cell Dist. Width 21.2 % (11.5-14.5); White Blood Cell Count 4.9 10^3/uL (4.8-10.8)
[2024-02-07 13:44] LABS: ALT (SGPT) 24 U/L (0-35); AST (SGOT) 27 U/L (14-36); Albumin 4.4 g/dl (3.5-5.0); Alkaline Phosphatase 85 U/L (38-126); Blood Urea Nitrogen 25 mg/dl (7-17); Calcium 8.8 mg/dl (8.4-10.2); Carbon Dioxide 33 mmol/L (22-30); Chloride 99 mmol/L (98-107); Glucose 134 mg/dl (70-99); Iron 84 ug/dl (37-170); Potassium 3.8 mmol/L (3.5-5.1); Sodium 141 mmol/L (135-145); Total Bilirubin 0.5 mg/dl (0.2-1.3); Total Protein 6.8 g/dl (6.3-8.2)
[2024-02-07 16:35] LABS: Glycohemoglobin (HgbA1c) 5.7 % (4.0-5.6)
== END ==
LOC: OLAB 10:00
PROVIDERS: ATTENDING PHYSICIAN Physician Assistant
DX: I13.0 Hypertensive heart and chronic kidney disease with heart failure and stage 1 through stage 4 chronic kidney disease, or unspecified chronic kidney disease (principal); N18.32 Chronic kidney disease, stage 3b; D63.1 Anemia in chronic kidney disease; E11.22 Type 2 diabetes mellitus with diabetic chronic kidney disease
CPT/HCPCS: 36415; 80053; 82728; 83036; 83540; 85025

== ENCOUNTER → 2024-05-20 10:53 | Outpatient (REF) | payer MEDICARE, OTHER, SELFPAY ==
[2024-05-20 15:50] LABS: ALT (SGPT) 17 U/L (0-35); AST (SGOT) 23 U/L (14-36); Albumin 4.9 g/dl (3.5-5.0); Alkaline Phosphatase 102 U/L (38-126); Blood Urea Nitrogen 24 mg/dl (7-17); Calcium 9.4 mg/dl (8.4-10.2); Carbon Dioxide 34 mmol/L (22-30); Chloride 97 mmol/L (98-107); Glucose 150 mg/dl (70-99); HDL Cholesterol 65 mg/dl; LDL Cholesterol, Calculated 49 mg/dl; Potassium 4.5 mmol/L (3.5-5.1); Sodium 141 mmol/L (135-145); Total Cholesterol 132 mg/dl (50-199); Total Protein 7.6 g/dl (6.3-8.2); Triglyceride 93 mg/dl (10-149); Very Low Density Lipoprotein 18 mg/dl (0-30); eGFR 43.69
[2024-05-20 15:51] LABS: % Basophils 0.4 % (0-2); % Immature Granulocytes 0.4 % (0-0.5); % Neutrophils 72.2 % (42.2-75.2); Absolute Eosinophils 0.2 10^3/uL (0-0.7); Absolute Lymphocytes 0.8 10^3/uL (1.2-3.4); Absolute Monocytes 0.5 10^3/uL (0.1-0.6); Absolute Neutrophils 3.8 10^3/uL (1.4-6.5); Hematocrit 41.5 % (37.0-47.0); Hemoglobin 13.4 g/dL (12.0-16.0); Mean Corp Hgb Conc. 32.3 g/dL (33.0-37.0); Mean Corpuscular Hgb 31.8 pg (27.0-31.0); Mean Corpuscular Volume 98.3 fL (81.0-99.0); Mean Platelet Volume 12.1 fL (7.4-10.4); Nucleated Red Blood Cells % 0 %; Platelet Count 121 10^3/uL (130-400); Red Blood Cell Count 4.22 10^6/uL (4.20-5.40); Red Cell Dist. Width 13.3 % (11.5-14.5); White Blood Cell Count 5.3 10^3/uL (4.8-10.8)
[2024-05-21 09:17] LABS: Glycohemoglobin (HgbA1c) 6.1 % (4.0-5.6)
== END ==
LOC: HWLAB 10:53
PROVIDERS: ATTENDING PHYSICIAN Physician Assistant
DX: E11.22 Type 2 diabetes mellitus with diabetic chronic kidney disease (principal); E11.42 Type 2 diabetes mellitus with diabetic polyneuropathy; E11.51 Type 2 diabetes mellitus with diabetic peripheral angiopathy without gangrene; I50.9 Heart failure, unspecified; I10 Essential (primary) hypertension; E78.00 Pure hypercholesterolemia, unspecified; N39.46 Mixed incontinence
CPT/HCPCS: 36415; 80053; 80061; 83036; 85025

== ENCOUNTER → 2024-06-17 12:24 | Outpatient (REF) | payer MEDICARE, OTHER, SELFPAY ==
[2024-06-17 15:25] LABS: % Basophils 0.2 % (0-2); % Eosinophils 2.7 % (0-6); % Immature Granulocytes 0.4 % (0-0.5); % Lymphocytes 15.6 % (20.5-51.1); % Neutrophils 73.1 % (42.2-75.2); Absolute Eosinophils 0.1 10^3/uL (0-0.7); Absolute Lymphocytes 0.7 10^3/uL (1.2-3.4); Absolute Monocytes 0.4 10^3/uL (0.1-0.6); Absolute Neutrophils 3.3 10^3/uL (1.4-6.5); Hematocrit 39.8 % (37.0-47.0); Hemoglobin 12.9 g/dL (12.0-16.0); Mean Corp Hgb Conc. 32.4 g/dL (33.0-37.0); Mean Corpuscular Volume 98.8 fL (81.0-99.0); Mean Platelet Volume 12.5 fL (7.4-10.4); Nucleated Red Blood Cells % 0 %; Platelet Count 110 10^3/uL (130-400); Red Blood Cell Count 4.03 10^6/uL (4.20-5.40); Red Cell Dist. Width 13.2 % (11.5-14.5); White Blood Cell Count 4.5 10^3/uL (4.8-10.8)
[2024-06-17 15:43] LABS: Blood Urea Nitrogen 27 mg/dl (7-17); Calcium 9.2 mg/dl (8.4-10.2); Carbon Dioxide 32 mmol/L (22-30); Chloride 100 mmol/L (98-107); Glucose 102 mg/dl (70-99); Potassium 3.9 mmol/L (3.5-5.1); Sodium 142 mmol/L (135-145)
== END ==
LOC: HWLAB 12:24
PROVIDERS: ATTENDING PHYSICIAN Physician Assistant
DX: E87.6 Hypokalemia (principal); N39.0 Urinary tract infection, site not specified
CPT/HCPCS: 36415; 80048; 85025; 87077; 87086; 87186

== ENCOUNTER → 2024-07-19 10:46 | Outpatient (REF) | payer MEDICARE, OTHER, SELFPAY ==
[2024-07-19 17:29] LABS: Urine Albumin 3+ (Neg - Trace); Urine Bilirubin Negative (Negative); Urine Character Slightly Cloudy (Clear); Urine Color Yellow; Urine Glucose 4+ (Negative); Urine Ketone Negative (Negative); Urine Leukocyte 3+ (Negative); Urine Nitrite Negative (Negative); Urine Occult Blood 4+ (Negative); Urine Urobilinogen Negative (Neg - 1+)
[2024-07-19 17:38] LABS: Urine Squamous Cell 0-2 /LPF (Few)
[2024-07-19 17:42] LABS: Urine Bacteria Many (Negative); Urine Red Blood Cell 30-40 /HPF (0-2); Urine White Cell >100 /HPF (0-5)
== END ==
LOC: CLAB 10:46
PROVIDERS: ATTENDING PHYSICIAN Physician Assistant
DX: N39.0 Urinary tract infection, site not specified (principal)
CPT/HCPCS: 81003; 81015; 87077; 87086; 87186

== ENCOUNTER → 2024-08-14 09:56 | Outpatient (REF) | payer MEDICARE, OTHER, SELFPAY | LOC: WDC 09:56 | PROVIDERS: ATTENDING PHYSICIAN Physician Assistant | DX: R92.8 Other abnormal and inconclusive findings on diagnostic imaging of breast (principal) | CPT/HCPCS: 76642 ==

== ENCOUNTER → 2024-09-06 11:11 | Outpatient (REF) | payer MEDICARE, OTHER, SELFPAY | LOC: HWWDC 11:11 | PROVIDERS: ATTENDING PHYSICIAN Physician Assistant; FAMILY PHYSICIAN Family Medicine | DX: Z12.31 Encounter for screening mammogram for malignant neoplasm of breast (principal) | CPT/HCPCS: 77063; 77067 ==

== ENCOUNTER → 2024-09-24 11:01 | Outpatient (REF) | payer MEDICARE, OTHER, SELFPAY ==
[2024-09-24 15:21] LABS: Blood Urea Nitrogen 20 mg/dl (7-17); Calcium 8.9 mg/dl (8.4-10.2); Carbon Dioxide 31 mmol/L (22-30); Chloride 103 mmol/L (98-107); Glucose 130 mg/dl (70-99); Potassium 4.0 mmol/L (3.5-5.1); Sodium 140 mmol/L (135-145); eGFR 43.42
== END ==
LOC: HWLAB 11:01
PROVIDERS: ATTENDING PHYSICIAN Physician Assistant
DX: N18.31 Chronic kidney disease, stage 3a (principal); E87.6 Hypokalemia
CPT/HCPCS: 36415; 80048

== ENCOUNTER → 2024-11-26 11:13 | Outpatient (REF) | payer MEDICARE, OTHER, SELFPAY ==
[2024-11-26 16:24] LABS: Hematocrit 34.3 % (37.0-47.0); Hemoglobin 11.2 g/dL (12.0-16.0); Mean Corp Hgb Conc. 32.7 g/dL (33.0-37.0); Mean Corpuscular Volume 97.4 fL (81.0-99.0); Nucleated Red Blood Cells % 0 %; Platelet Count 111 10^3/uL (130-400); Red Cell Dist. Width 13.7 % (11.5-14.5)
[2024-11-26 16:50] LABS: ALT (SGPT) 21 U/L (0-35); AST (SGOT) 26 U/L (14-36); Albumin 4.1 g/dl (3.5-5.0); Alkaline Phosphatase 73 U/L (38-126); Blood Urea Nitrogen 20 mg/dl (7-17); Calcium 8.8 mg/dl (8.4-10.2); Carbon Dioxide 32 mmol/L (22-30); Chloride 101 mmol/L (98-107); Glucose 159 mg/dl (70-99); Potassium 4.0 mmol/L (3.5-5.1); Sodium 139 mmol/L (135-145); Total Protein 6.6 g/dl (6.3-8.2); eGFR 47.80
== END ==
LOC: HWLAB 11:13
PROVIDERS: ATTENDING PHYSICIAN Physician Assistant
DX: E11.42 Type 2 diabetes mellitus with diabetic polyneuropathy (principal); E11.51 Type 2 diabetes mellitus with diabetic peripheral angiopathy without gangrene; Z68.41 Body mass index [BMI] 40.0-44.9, adult; E66.813 Obesity, class 3; I25.10 Atherosclerotic heart disease of native coronary artery without angina pectoris; I50.43 Acute on chronic combined systolic (congestive) and diastolic (congestive) heart failure
CPT/HCPCS: 36415; 80053; 83880; 85025

== ENCOUNTER → 2024-12-19 11:51 | Outpatient (REF) | payer MEDICARE, OTHER, SELFPAY ==
[2024-12-19 16:17] LABS: INR 1.53; PT 18.9 Sec (11.4-14.6)
[2024-12-19 16:18] LABS: Hematocrit 35.3 % (37.0-47.0); Hemoglobin 11.2 g/dL (12.0-16.0); Mean Corp Hgb Conc. 31.7 g/dL (33.0-37.0); Mean Corpuscular Volume 93.1 fL (81.0-99.0); Nucleated Red Blood Cells % 0 %; Platelet Count 105 10^3/uL (130-400); Red Cell Dist. Width 12.9 % (11.5-14.5)
[2024-12-19 16:25] LABS: ALT (SGPT) 14 U/L (0-35); AST (SGOT) 19 U/L (14-36); Albumin 4.5 g/dl (3.5-5.0); Alkaline Phosphatase 65 U/L (38-126); Blood Urea Nitrogen 25 mg/dl (7-17); Calcium 8.8 mg/dl (8.4-10.2); Carbon Dioxide 30 mmol/L (22-30); Chloride 103 mmol/L (98-107); Glucose 110 mg/dl (70-99); Potassium 4.3 mmol/L (3.5-5.1); Sodium 140 mmol/L (135-145); Total Protein 7.2 g/dl (6.3-8.2); eGFR 43.42
[2024-12-19 19:58] LABS: AFP Male/Tumor Marker 6.24 ng/ml
== END ==
LOC: HWLAB 11:51
PROVIDERS: ATTENDING PHYSICIAN Physician Assistant Medical; FAMILY PHYSICIAN Physician Assistant
DX: K74.60 Unspecified cirrhosis of liver (principal); I50.32 Chronic diastolic (congestive) heart failure
CPT/HCPCS: 36415; 80053; 82105; 85025; 85610